=== PATIENT | male | born 1965 | race Caucasian/White ===

== ENCOUNTER 2019-09-26 10:26 | Emergency (ER) | payer MEDICAID, SELFPAY | END 2019-09-26 13:38 | disposition home or self-care (01) | PROVIDERS: Emergency Provider Physician Assistant; Visit Provider Physician Assistant | DX: S01.81XA Laceration without foreign body of other part of head, initial encounter (principal); F10.10 Alcohol abuse, uncomplicated; W01.0XXA Fall on same level from slipping, tripping and stumbling without subsequent striking against object, initial encounter; Y92.009 Unspecified place in unspecified non-institutional (private) residence as the place of occurrence of the external cause; I10 Essential (primary) hypertension; I48.91 Unspecified atrial fibrillation; I73.9 Peripheral vascular disease, unspecified; Z87.891 Personal history of nicotine dependence | CPT/HCPCS: 12013; 70450; 70486; 72125; 96372; 99284; J2001 ==

== ENCOUNTER 2019-10-28 19:07 | Emergency (ER) | payer MEDICAID, SELFPAY ==
--- NOTE | 2019-10-28 19:24 | PC.NURSE ---
EKG done 1922 and shown to ER doctor
[2019-10-28 19:28] VITALS: BP 130/86; PULSE 120; RESP 18; TEMP 36.7; O2SAT 97; BMI 23.7
--- NOTE | 2019-10-28 19:39 | ECG_ITS ---
Measurements Intervals [place] Rate: 120 P: 72 PA: 235 QRS: 4 QRSD: 102 T: 50 QT: 334 QTc: 474 SINUS TACHYCARDIA WITH FIRST DEGREE AV BLOCK Compared to ECG 05/28/2019 00:46:14 First degree AV block now present Atrial fibrillation no longer present T-wave abnormality no longer present Electronically Signed On 10-29-2019 16:21:18 [employer]STATE LOAN OFFICER by Derik Morgan M.D. [id number]
--- NOTE | 2019-10-28 19:39 | CTR_ITS ---
PROCEDURE INFORMATION: Exam: CT Head Without Contrast Exam date and time: 10/28/2019 7:54 PM Age: 54 years old Clinical indication: Patient HX: Seizure 1 hour ago TECHNIQUE: Imaging protocol: Computed tomography of the head without contrast. Total DLP: 839.03 mGy-cm Radiation optimization: All CT scans at this facility use at least one of these dose optimization techniques: automated exposure control; mA and/or kV adjustment per patient size (includes targeted exams where dose is matched to clinical indication); or iterative reconstruction. 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 Mild atrophy and mild white matter chronic microvascular changes are noted. No hemorrhage or CT evidence of acute infarction is seen. Ventricles: Normal. No ventriculomegaly. Bones/joints: Unremarkable. No acute fracture. Sinuses: Visualized sinuses are unremarkable. No fluid levels. Mastoid air cells: Visualized mastoid air cells are well aerated. Soft tissues: Unremarkable. CT/CT head wo con* [id number] IMPRESSION: No acute intracranial abnormality Radiation Dose CTDIVOL = (mGy): DLP = 839.03 (mGy-cm)
--- NOTE | 2019-10-28 19:42 | W.ED.GENADLT ---
HPI - General Adult General: Chief complaint: Alcohol Stated complaint: DETOX FROM ALCOHOL Time Seen by Provider: 10/28/19 19:37 History of Present Illness: HPI narrative: 54-year-old male patient comes in today for tremors and possible seizure activity. Patient stopped drinking 2 days ago. Patient has a history of chronic alcoholism. Patient reports no previous episodes of seizure. Patient is alert at this time speaking when questioned patient does have some tremors noted. Review of Systems General: Reports: 10 or more systems reviewed and unremarkable except in HPI and below Neuro: Reports: seizure-like activity Psych: Reports: other (alcohol withdrawal) PFSH ED PFSH: Statuses (acute, chronic, etc) shown below reflect problem list status as previously entered and may not be historically accurate Social History Smoking and tobacco status: former smoker Physical Exam Const: COMMON NORMALS: no apparent distress, oriented x3 and alert GENERAL APPEARANCE: cooperative ORIENTATION/CONSCIOUSNESS: Yes oriented to person and Yes oriented to place HENMT: COMMON NORMALS: normocephalic, external ears normal, EAC's normal, TM's normal bilaterally and external nose normal HEAD & SCALP: normal to inspection and normocephalic FACE & SINUS: normal facial exam NOSE: external nose normal GENERAL EAR: hearing not grossly impaired EXTERNAL EAR: Yes external ears normal EXTERNAL AUDITORY CANAL: EAC's normal TYMPANIC MEMBRANE: TM's normal bilaterally MOUTH: oral and palatal mucosa normal THROAT: posterior oropharynx normal Eye: COMMON NORMALS: PERRL and EOMs intact bilaterally PUPIL: Yes PERRL Neck/C-Spine: COMMON NORMALS: full ROM, no lymphadenopathy and no meningeal signs Lymph: LYMPHATIC: no lymphedema noted Chest: COMMONS NORMALS: inspection of chest normal and palpation of chest normal Resp: COMMON NORMALS: normal respiratory effort and clear to auscultation bilaterally AUSCULTATION: clear to auscultation bilaterally Cardio: COMMON NORMALS: regular rate and regular rhythm RATE: regular rate RHYTHM: regular rhythm GI: COMMON NORMALS: normal to inspection, nondistended, normoactive bowel sounds and non-tender : COMMON NORMALS: Yes no CVA tenderness BLADDER/KIDNEY EXAM: Yes no CVA tenderness Back/Pelvis: COMMON NORMALS: no CVA tenderness and thoracic and lumbar spine normal to inspection Extremity: COMMON NORMALS: normal to inspection GENERAL: No edema Neuro: COMMON NORMALS: oriented x3, moves all extremities and no focal motor deficits SENSORIUM/ORIENTATION: Yes alert, Yes oriented to person and Yes oriented to place MENINGEAL SIGNS: Yes no meningeal signs CRANIAL NERVES: Yes CN normal except as noted COORDINATION/BALANCE: [id number] test normal SPEECH: speech normal MOTOR EXAM: strength 5/5 throughout and tremor resting tremor COORDINATION: [id number] test normal Psych: COMMON NORMALS: mental status grossly normal and cooperative Skin: COMMON NORMALS: no rashes or lesions noted GENERAL SKIN EXAM: no rashes or lesions noted Course Vital Signs: Vital signs: Vital Signs Temperature 98.1 F 10/28/19 19:28 Pulse Rate 120 H 10/28/19 19:28 Respiratory Rate 18 10/28/19 19:28 Blood Pressure 130/86 10/28/19 19:28 Pulse Oximetry 97 10/28/19 19:28 MDM - General Adult MDM Narrative: Medical decision making narrative: Patient was brought in by son per EMS for concerns of seizure-like activity. Patient had a short episode where he had his eyes rolled back in his head and was twitching on the floor some reports. Patient was not incontinent of urine. Patient has recently stopped drinking over the last 2 days. Exam notes no focal neural deficits patient is alert and oriented. Patient does have a tremor at rest. Patient does report withdrawal symptoms of alcohol. Differential diagnosis includes DTs, alcohol withdrawal seizure, CVA, ACS. Laboratory values came back appropriate for 0 percentile for alcohol, blood count was normal. Sodium was 133. Liver enzymes are slightly elevated. Reviewed exam with patient, patient was hydrated with IV fluids and given 100 mg of thiamine and 2 mg of Ativan. No seizure activity was noted 4 to 4 hours patient was monitored in the ER. Patient will be continued on Ativan p.o. at discharge with recommendations to follow-up in 3 days with primary care. Patient sees a primary care provider at [facility] and will continue his treatment with them, patient has good support with son. Lab Data: Labs: Lab Results 10/28/19 10/28/19 Range/Units 19:44 19:44 WBC 7.7 (4.0-10.0) 10^3/ uL RBC 4.52 (4.1-5.3) 10^6/u L Hgb 14.9 (11.7-16.6) g/dL Hct 42.9 (42.0-52.0) % MCV 94.9 H (80-94) fL MCH 33.0 (28.0-34.0) pg MCHC 34.7 (30.0-36.0) g/dL RDW 12.0 L (12.1-15.1) % Plt Count 148 (130-400) 10^3/c mm MPV 11.0 H (7.4-10.4) fL Neut % (Auto) 87.3 % Lymph % (Auto) 7.0 % [place] % (Auto) 4.9 % Eos % (Auto) 0.1 % Baso % (Auto) 0.4 % Neut # (Auto) 6.7 (1.8-7.7) 10^3/u L Lymph # (Auto) 0.5 L (0.8-4.8) 10^3/u L [place] # (Auto) 0.4 (0.2-0.9) 10^3/u L Eos # (Auto) 0.0 (0.0-0.8) 10^3/u L Baso # (Auto) 0.0 (0.0-0.1) 10^3/u L Nucleated RBC % (a uto) 0 % Nucleated RBCs # 0.0 /100WBC Sodium 133 L (136-145) mmol/L Potassium 3.9 (3.5-5.1) mmol/L Chloride 93 L (98-107) mmol/L Carbon Dioxide 17 L (22-29) mmol/L Anion Gap 26.9 H (5-19) BUN 12 (6-20) mg/dL Creatinine 0.8 (0.7-1.2) mg/dL GFR Calculation 100.0 (90-130) mL/min Glucose 153 H (74-109) mg/dL Calcium 9.5 (8.5-10.5) mg/dL Total Bilirubin 2.0 H (0.15-1.2) mg/dL AST 109 H (0-40) U/L ALT 81 H (0-41) U/L Alkaline Phosphata se 97 (40-130) IU/L Total Protein 7.6 (6.6-8.7) g/dL Albumin 4.2 (3.5-5.2) g/dL Globulin 3.4 (1.3-4.6) g/dL Ethyl Alcohol < 10 (0-10) mg/dL Discharge Plan Discharge Patient Disposition: Home, Self-Care Clinical Impression: Alcohol withdrawal seizure Qualifiers: Complication of substance-induced condition: uncomplicated Qualified Code(s): F10.230 - Alcohol dependence with withdrawal, uncomplicated Condition: Stable Prescriptions: New lorazepam 1 mg tablet 1 mg PO Q8H PRN (Reason: alcohol withdrawal) Qty: 15 RF: 0 Discharge Orders: Discharge Order (Routine); Ordered 10/28/19 Ordered By: Nicola Montoya Discharge Diet: Usual diet Discharge Activity: Increase activity as tolerated Patient Instructions: Alcohol Withdrawal (ED) Activity Restrictions/Additional Instructions: Use medication routinely for the next 2 to 3 days, then try to go to a prn basis, Follow-up with primary care on Thursday for recheck. Return to ER for worsening symptoms or new concerns Coding Level of Care Code ED [employer] Operator for Angelica Pollard Exam Problem Focused
[2019-10-28 19:54] LABS: Basophils % 0.4 %; Eosinophils % 0.1 %; Hematocrit 42.9 % (42.0-52.0); Hemoglobin 14.9 g/dL (11.7-16.6); Lymphocytes # 0.5 10^3/uL (0.8-4.8); Mean Corpuscular HGB Conc 34.7 g/dL (30.0-36.0); Mean Corpuscular Volume 94.9 fL (80-94); Monocytes # 0.4 10^3/uL (0.2-0.9); Monocytes % 4.9 %; Neutrophils # 6.7 10^3/uL (1.8-7.7); Neutrophils % 87.3 %; Nucleated Red Blood Cells % 0 %; Platelet Count 148 10^3/cmm (130-400); Red Blood Count 4.52 10^6/uL (4.1-5.3); White Blood Count 7.7 10^3/uL (4.0-10.0)
[2019-10-28] MEDS: LORazepam 2 mg/mL INJ 1 mL IVP (19:55)
[2019-10-28] MEDS: sodium chloride 0.9% 1,000 ML 999 ML IV (19:57)
[2019-10-28 20:09] LABS: Alanine Aminotransferase 81 U/L (0-41); Albumin Level 4.2 g/dL (3.5-5.2); Alkaline Phosphatase 97 IU/L (40-130); Anion Gap 26.9 (5-19); Aspartate Amino Transferase 109 U/L (0-40); Blood Urea Nitrogen 12 mg/dL (6-20); Calcium 9.5 mg/dL (8.5-10.5); Carbon Dioxide 17 mmol/L (22-29); Chloride 93 mmol/L (98-107); Globulin 3.4 g/dL (1.3-4.6); Glucose 153 mg/dL (74-109); Potassium 3.9 mmol/L (3.5-5.1); Sodium 133 mmol/L (136-145); Total Protein 7.6 g/dL (6.6-8.7)
[2019-10-28 20:12] LABS: Alcohol Level < 10 mg/dL (0-10)
[2019-10-28 21:49] VITALS: BP 134/74; PULSE 68; RESP 18; O2SAT 98
== END 2019-10-28 21:52 | disposition home or self-care (01) ==
PROVIDERS: Emergency Provider Nurse Practitioner Family
DX: F10.239 Alcohol dependence with withdrawal, unspecified (principal); G40.89 Other seizures; Z87.891 Personal history of nicotine dependence
CPT/HCPCS: 70450; 80053; 80307; 85025; 93005; 96360; 96374; 96375; 99284; 99285; A9270; J2060; J3411; J7030

== ENCOUNTER 2020-07-24 22:38 | Emergency (ER) | payer MEDICAID, SELFPAY ==
[2020-07-24 22:41] VITALS: BP 121/96; PULSE 116; RESP 16; TEMP 36.9; O2SAT 92; BMI 20.5
--- NOTE | 2020-07-24 22:57 | ECG_ITS ---
[facility] Test Date: 2020-07-25 Pat Name: Derrek Crowe Department: Room: Gender: Male [employer]: : 1965 Requested By: Anais Servin Order Number: [id number] Reading MD: Measurements Intervals [place] Rate: 100 P: SD: -1 QRS: -3 QRSD: 112 T: 31 QT: 384 QTc: 496 Interpretive Statements ATRIAL FIBRILLATION WITH RAPID VENTRICULAR RESPONSE MODERATE INTRAVENTRICULAR CONDUCTION DELAY [110+ ms QRS DURATION] NONSPECIFIC T-WAVE ABNORMALITY ABNORMAL RHYTHM ECG Compared to ECG 10/28/2019 19:23:48 Intraventricular conduction delay now present T-wave abnormality now present Sinus tachycardia no longer present First degree AV block no longer present [id number]
--- NOTE | 2020-07-24 22:57 | CTR_ITS ---
PROCEDURE INFORMATION: Exam: CT Head Without Contrast Exam date and time: 07/24/2020 11:23 PM Age: 55 years old Clinical indication: Injury or trauma; Fall; Blunt trauma (contusions or hematomas) TECHNIQUE: Imaging protocol: Computed tomography of the head without contrast. Radiation optimization: All CT scans at this facility use at least one of these dose optimization techniques: automated exposure control; mA and/or kV adjustment per patient size (includes targeted exams where dose is matched to clinical indication); or iterative reconstruction. COMPARISON: CT head wo con* [id number] 10/28/2019 8:17 PM RADIATION DOSE METRICS: Total DLP (mGy-cm): 847.56 FINDINGS: Brain: There is moderate cortical atrophy. Low-density changes in the white matter are consistent with nonspecific small vessel chronic ischemic change. There is no intracranial mass, hemorrhage or edema. 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 Cerebral ventricles: No ventriculomegaly. Bones/joints: Unremarkable. No acute fracture. Paranasal sinuses: Visualized sinuses are unremarkable. No fluid levels. Mastoid air cells: Visualized mastoid air cells are well aerated. Soft tissues: Unremarkable. CT/CT head wo con* [id number] IMPRESSION: 1. Atrophy and old lacunar disease 2. No acute intracranial finding. Radiation Dose CTDIVOL = (mGy): DLP = 847.56 (mGy-cm)
--- NOTE | 2020-07-24 22:57 | CTR_ITS ---
PROCEDURE INFORMATION: Exam: CT Cervical Spine Without Contrast Exam date and time: 07/24/2020 11:23 PM Age: 55 years old Clinical indication: Injury or trauma; Fall; Blunt trauma; Additional info: Pain TECHNIQUE: Imaging protocol: Computed tomography images of the cervical spine without contrast. Radiation optimization: All CT scans at this facility use at least one of these dose optimization techniques: automated exposure control; mA and/or kV adjustment per patient size (includes targeted exams where dose is matched to clinical indication); or iterative reconstruction. COMPARISON: CT Cervical Spine wo* [id number] 09/26/2019 11:28 AM RADIATION DOSE METRICS: Total DLP (mGy-cm): 841.71 FINDINGS: Bones/joints: No fracture is identified. Discs/Spinal canal/Neural foramina: There is moderate degenerative change in the cervical spine with narrowing of the C3-C4 disc space and the C5-C6 disc space with small anterior and posterior osteophytes. Soft tissues: Unremarkable. Lungs: Lung apices are normal. Other findings: Findings are not significantly changed from 09/26/2019. CT/CT cervical spin wo con* [id number] IMPRESSION: Degenerative changes. No fracture is identified. Radiation Dose CTDIVOL = (mGy): DLP = 841.71 (mGy-cm)
--- NOTE | 2020-07-24 22:57 | XR_ITS ---
WS: [id number] PELVIS: AP VIEW SUBMITTED HISTORY: Fall COMPARISON: None available. Bones and soft tissues of the pelvis are intact. No fracture or dislocation. Mild narrowing of the hip joints and mild osteophytic ridging around the acetabulum. No bone destruct ion. No soft tissue abnormality. XR/XR pelvis 1-2V* [id number] IMPRESSION: Mild bilateral hip joint arthritis.
--- NOTE | 2020-07-24 22:57 | XR_ITS ---
WS: [id number] PORTABLE CHEST HISTORY: Fall COMPARISON: 05/28/2019 Hyperexpanded lungs from emphysema. Stable granuloma over the mid to lower RIGHT lower lung is stable . No pneumonia. No pleural effusion or pneumothorax. Cardiac size: Moderately enlarged cardiac silhouette. Mediastinum/Aorta: Normal mediastinum. No osseous abnormality seen. XR/XR chest 1V portable [id number] IMPRESSION: 1. Stable chest. No acute pneumonia. 2. Moderate cardiomegaly.
--- NOTE | 2020-07-24 23:00 | ED_ITS ---
Documented by User: Anais Leblanc 07/25/20 06:08 HPI - Back Pain/Injury General: Chief Complaint: Back Pain/Injury Stated Complaint: BACK PAIN/ETOH Time Seen by Provider: 07/24/20 22:43 Source: patient and EMS Mode of arrival: EMS Limitations: no limitations History of Present Illness: HPI Narrative: Mr. Crowe is a nice 55-year-old male who comes in after he apparently fell at home. Patient does not remember falling and denies any new pain. 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 He denies any loss of bowel or bladder control, saddle anesthesia, radiation his legs or other pain. Patient does not believe he got knocked out but he does admit to being drunk and is uncertain how he got here. Patient drinks this is 1/5 of whiskey every other day. He denies any complaints at this time. Associated symptoms: Deny abdominal pain, chills, difficulty walking, dysuria, fatigue, fever(s), hematuria, nausea, syncope, urinary urgency or vomiting Review of Systems Const: Denies: fever(s), chills, body aches, fatigue, malaise or diaphoresis Eyes: Denies: change in vision, blurry vision, photophobia, eye discomfort, eye discharge, eye redness or yellow eyes ENMT: Denies: throat pain, odynophagia, hoarseness, swelling of lips/tongue, ear or mastoid pain, ear discharge, change in hearing or nasal discharge Card: Denies: chest pain, palpitations, irregular heart rhythm, edema, lightheadedness, syncope, pre-syncope, dyspnea on exertion or orthopnea Resp: Denies: dyspnea, productive cough, non-productive cough, wheezing, hemoptysis or chest congestion GI: Denies: abdominal pain, nausea, vomiting, hematemesis, coffee ground emesis, heartburn, diarrhea, constipation, GI cramping, hematochezia or melena : Denies: flank pain, dysuria, urinary frequency, urinary urgency or hematuria Musc: Reports: back pain; Denies: neck pain, extremity pain, extremity swelling, joint pain, joint swelling, joint redness, joint warmth or joint stiffness Skin/Breast: Denies: rash, pruritus, erythema, skin pain or skin tenderness Neuro: Denies: headache(s), numbness in extremities, weakness in extremities, sensory changes, lack of coordination, difficulty walking, dizziness, vertigo, confusion, Slurred speech present or seizure-like activity Tano/Lymph: Denies: easy bruising, easy bleeding, petechiae, purpura or enlarged lymph nodes All/Imm: Denies: urticaria, throat swelling, tongue swelling, facial swelling or acute wheezing PFSH ED PFSH: Medical History (Updated 07/25/20 @ 11:13 by Erick Rhoades DO) Anxiety Atrial fibrillation Congestive heart failure GERD (gastroesophageal reflux disease) Hypertension Family History Father Cancer Social History Smoking and tobacco status: former smoker Physical Exam Const: COMMON NORMALS: no acute distress, patient oriented x3, no limitations and alert GENERAL APPEARANCE: cooperative HENMT: COMMON NORMALS: normocephalic, atraumatic, external ears normal, EAC's normal and Normal external nose present HEAD & SCALP: normal to inspection, normocephalic and atraumatic FACE & SINUS: normal facial exam and face symmet kareen NOSE: Normal external nose present and Normal nares present EXTERNAL EAR: Yes external ears normal EXTERNAL AUDITORY CANAL: EAC's normal MOUTH: Normal oral and palatal mucosa present, lip normal and tongue normal Eye: COMMON NORMALS: Equal, round and reactive pupils present and conjunctivae normal GENERAL EYE: appearance normal, both eyes and all related structures ALIGNMENT: Yes alignment normal PERIORBITAL: periorbital findings normal EYELID: eyelids normal CONJUNCTIVA: Yes conjunctivae normal SCLERA: sclerae normal PUPIL: Yes Equal, round and reactive pupils present Neck/C-Spine: COMMON NORMALS: full ROM, no lymphadenopathy, supple, no meningeal signs and no JVD GENERAL: Yes normal visual inspection and Yes trachea midline Chest: COMMONS NORMALS: normal inspection of the chest and normal palpation of entire chest wall Resp: COMMON NORMALS: normal respiratory effort, No retractions, No use of accessory muscles and clear to auscultation bilaterally EFFORT & INSPECTION: Yes able to speak in complete sentences and Yes symmetric chest movement AUSCULTATION: clear to auscultation bilaterally, no crackles, no rales, no rhonchi and no wheezes Cardio: COMMON NORMALS: no JVD, regular rate, regular rhythm, S1 normal heart sound present and S2 normal heart sound present RATE: regular rate RHYTHM: regular rhythm HEART SOUNDS: S1 normal heart sound present, S2 normal heart sound present, no click, no gallops, no murmurs and no rubs GI: COMMON NORMALS: Soft to palpation and No hepatosplenomegaly present PALPATION: Yes Soft to palpation, No Tenderness to palpation present (GI), No Guarding due to palpation present (GI), No Rigid due to palpation, Yes No hepat osplenomegaly present, No Hernia present, No Palpable mass present and No Pulsatile mass present : COMMON NORMALS: Yes no CVA tenderness BLADDER/KIDNEY EXAM: Yes no CVA tenderness Back/Pelvis: COMMON NORMALS: no CVA tenderness, thoracic and lumbar spine normal to inspection, no thoracic nor lumbar tenderness and thoraco-lumbar ROM normal Extremity: COMMON NORMALS: normal to inspection, full ROM, capillary refill normal, no joint enlargement, no clubbing, cyanosis or edema and no calf tenderness Neuro: COMMON NORMALS: patient oriented x3, CN's II-XII intact bilaterally, moves all extremities, no focal motor deficits and no sensory deficits noted SENSORIUM/ORIENTATION: Yes alert MENINGEAL SIGNS: Yes no meningeal signs SPEECH: speech normal Psych: COMMON NORMALS: mental status grossly normal, Normal thought process present, cooperative, normal affect, speech normal and activity/motor behavior normal SPEECH: Yes normal speech THOUGHT PROCESS: Normal thought process present Skin: COMMON NORMALS: no rashes or lesions noted, turgor normal, no jaundice, no petechiae and no mottling GENERAL SKIN EXAM: no rashes or lesions noted and turgor normal Course ED course: 0056 -patient able to ambulate without difficulty. Wants to go home. Will begin to have him start calling for a ride home. 0433 -patient is resting comfortably with stable vital signs. He was awoken has a GCS of 15. He denies any complaints or concerns. We are still unable to reach anyone to come to take him home. 0530 -patient is up and able to ambulate again without any sign of ataxia or disturbance. Pain in his head, neck, chest, back, abdomen or extremities. Vital signs are stable. We will continue to try to find someone who can come pick him up and take him home. Vital Signs: Vital signs: Vital Signs Temperature 98.4 F 07/24/20 22:41 Pulse Rate 110 H 07/25/20 11:54 Respiratory Rate 18 07/25/20 10:00 Blood Pressure 132/101 07/25/20 11:54 Pulse Oximetry 93 07/25/20 11:54 MDM - Back Pain/Injury MDM Narrative: Medical decision making narrative: 06 -Mr. Crowe is 55-year-old male who comes in with report of fall at home. Patient does not remember the fall. He denies any complaints. Upon looking through the chart the patient does have history of atrial fibrillation he is uncertain if he is on anticoagulation any longer. The last thing I can see is that he was on Eliquis. I will go ahead and check some coags given the patient's been up and amatory twice. He denies any other pain at this time. Patient cannot locate her right still at this time. Lab Data: Attestation: I reviewed the patient's lab results. Labs: Lab Results 07/24/20 07/24/20 07/25/20 Range/Units 23:08 23:08 01:26 WBC 7.7 (4.0-10.0) 10^3/ uL RBC 4.43 (4.1-5.3) 10^6/u L Hgb 14.8 (11.7-16.6) g/dL Hct 45.5 (42.0-52.0) % MCV 102.7 H (80-94) fL MCH 33.4 (28.0-34.0) pg MCHC 32.5 (30.0-36.0) g/dL RDW 13.7 (12.1-15.1) % Plt Count 229 (130-400) 10^3/c mm MPV 10.6 H (7.4-10.4) fL Neut % (Auto) 46.2 % Lymph % (Auto) 44.0 % Tompkins % (Auto) 6.7 % Eos % (Auto) 1.9 % Baso % (Auto) 0.9 % Neut # (Auto) 3.56 (1.8-7.7) 10^3/u L Lymph # (Auto) 3.4 (0.8-4.8) 10^3/u L Tompkins # (Auto) 0.5 (0.2-0.9) 10^3/u L Eos # (Auto) 0.2 (0.0-0.8) 10^3/u L Baso # (Auto) 0.1 (0.0-0.1) 10^3/u L Nucleated RBC % (a uto) 0 % Nucleated RBCs # 0.0 /100WBC Sodium 144 (136-145) mmol/L Potassium 3.9 (3.5-5.1) mmol/L Chloride 107 (98-107) mmol/L Carbon Dioxide 27 (22-29) mmol/L Anion Gap 13.9 (5-19) BUN 14 (6-20) mg/dL Creatinine 0.8 (0.7-1.2) mg/dL GFR Calculation 99.6 (90-130) mL/min Glucose 92 (65-115) mg/dL Calculated Osmolal ity 298 H (285-295) mOsm/k g Calcium 9.2 (8.5-10.5) mg/dL Magnesium 2.2 (1.7-2.3) mg/dL Total Bilirubin 0.7 (0.15-1.2) mg/dL AST 62 H (0-40) U/L ALT 42 H (0-41) U/L Alkaline Phosphata se 83 (40-130) IU/L Total Protein 7.4 (6.6-8.7) g/dL Albumin 4.3 (3.5-5.2) g/dL Globulin 3.1 (1.3-4.6) g/dL Ethyl Alcohol 342 H* (0-10) mg/dL 07/25/20 Range/Units 05:50 WBC (4.0-10.0) 10^3/ uL RBC (4.1-5.3) 10^6/u L Hgb (11.7-16.6) g/dL Hct (42.0-52.0) % MCV (80-94) fL MCH (28.0-34.0) pg MCHC (30.0-36.0) g/dL RDW (12.1-15.1) % Plt Count (130-400) 10^3/c mm MPV (7.4-10.4) fL Neut % (Auto) % Lymph % (Auto) % Tompkins % (Auto) % Eos % (Auto) % Baso % (Auto) % Neut # (Auto) (1.8-7.7) 10^3/u L Lymph # (Auto) (0.8-4.8) 10^3/u L Tompkins # (Auto) (0.2-0.9) 10^3/u L Eos # (Auto) (0.0-0.8) 10^3/u L Baso # (Auto) (0.0-0.1) 10^3/u L Nucleated RBC % (a uto) % Nucleated RBCs # /100WBC Sodium (136-145) mmol/L Potassium (3.5-5.1) mmol/L Chloride (98-107) mmol/L Carbon Dioxide (22-29) mmol/L Anion Gap (5-19) BUN (6-20) mg/dL Creatinine (0.7-1.2) mg/dL GFR Calculation (90-130) mL/min Glucose (65-115) mg/dL Calculated Osmolal ity (285-295) mOsm/k g Calcium (8.5-10.5) mg/dL Magnesium (1.7-2.3) mg/dL Total Bilirubin (0.15-1.2) mg/dL AST (0-40) U/L ALT (0-41) U/L Alkaline Phosphata se (40-130) IU/L Total Protein (6.6-8.7) g/dL Albumin (3.5-5.2) g/dL Globulin (1.3-4.6) g/dL Ethyl Alcohol 222 H (0-10) mg/dL Imaging Data^: CXR: Attestation: I personally reviewed and interpreted this imaging study as follows: My impression: No acute cardiopulmonary findings. Pelvis: Attestation: I personally reviewed and interpreted this imaging study as follows: My impression: No acute cardiopulmonary findings. CT Head: Radiologist's impression: [address] [address] [address] Scan Report Signed Patient: Derrek Crowe Unit #: [id number] : 1965 Age/Sex: 55 / M ADM Date: 07/24/20 Loc: ER Room/Bed: Attending Dr: Ordering Provider/Ordering MD: Anais Leblanc DO Date of Service: 07/24/20 Procedure(s): CT head wo con* [id number] Accession Number(s): [id number] Report Number: [id number] PROCEDURE INFORMATION: Exam: CT Head Without Contrast Exam date and time: 07/24/2020 11:23 PM Age: 55 years old Clinical indication: Injury or trauma; Fall; Blunt trauma (contusions or hematomas) TECHNIQUE: Imaging protocol: Computed tomography of the head without contrast. Radiation optimization: All CT scans at this facility use at least one of these dose optimization techniques: automated exposure control; mA and/or kV adjustment per patient size (includes targeted exams where dose is matched to clinical indication); or iterative reconstruction. COMPARISON: CT head wo con* [id number] 10/28/2019 8:17 PM RADIATION DOSE METRICS: Total DLP (mGy-cm): 847.56 FINDINGS: Brain: There is moderate cortical atrophy. Low-density changes in the white matter are consistent with nonspecific small vessel chronic ischemic change. There is no intracranial mass, hemorrhage or edema. 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 Cerebral ventricles: No ventriculomegaly. Bones/joints: Unremarkable. No acute fracture. Paranasal sinuses: Visualized sinuses are unremarkable. No fluid levels. Mastoid air cells: Visualized mastoid air cells are well aerated. Soft tissues: Unremarkable. CT/CT head wo con* [id number] IMPRESSION: 1. Atrophy and old lacunar disease 2. No acute intracranial finding. Radiation Dose CTDIVOL = (mGy): DLP = 847.56 (mGy-cm) Dictated By: Gil Garvey Signed By: Gil Garvey Signed Date/Time: 07/25/20 0002 DD/ 0001 CT Cervical Spine: Radiologist's impression: [address] [address] [address] Scan Report Signed Patient: Derrek Crowe Unit #: [id number] : 1965 Age/Sex: 55 / M ADM Date: 07/24/20 Loc: ER Room/Bed: Attending Dr: Ordering Provider/Ordering MD: Anais Leblanc DO Date of Service: 07/24/20 Procedure(s): CT cervical spin wo con* [id number] Accession Number(s): [id number] Report Number: [id number] PROCEDURE INFORMATION: Exam: CT Cervical Spine Without Contrast Exam date and time: 07/24/2020 11:23 PM Age: 55 years old Clinical indication: Injury or trauma; Fall; Blunt trauma; Additional info: Pain TECHNIQUE: Imaging protocol: Computed tomography images of the cervical spine without contrast. Radiation optimization: All CT scans at this facility use at least one of these dose optimization techniques: automated exposure control; mA and/or kV adjustment per patient size (includes targeted exams where dose is matched to clinical indication); or iterative reconstruction. COMPARISON: CT Cervical Spine wo* [id number] 09/26/2019 11:28 AM RADIATION DOSE METRICS: Total DLP (mGy-cm): 841.71 FINDINGS: Bones/joints: No fracture is identified. Discs/Spinal canal/Neural foramina: There is moderate degenerative change in the cervical spine with narrowing of the C3-C4 disc space and the C5-C6 disc space with small anterior and posterior osteophytes. Soft tissues: Unremarkable. Lungs: Lung apices are normal. Other findings: Findings are not significantly changed from 09/26/2019. CT/CT cervical spin wo con* [id number] IMPRESSION: Degenerative changes. No fracture is identified. Radiation Dose CTDIVOL = (mGy): DLP = 841.71 (mGy-cm) Dictated By: Gil Garvey Signed By: Gil Garvey Signed Date/Time: 07/25/209 DD/ 0008 EKG Data^: EKG 1: Attestation: I personally reviewed and interpreted this EKG as follows: EKG interpretation date: 07/25/20 EKG interpretation time: 12:15 Interpretation: A-Fib/Flutter at 100 beats a minute, frequent PE bases, no acute ST or T wave changes. EKG 2: Attestation: I personally reviewed and interpreted this EKG as follows: EKG interpretation date: 07/25/20 EKG interpretation time: 05:51 Interpretation: A. fib at 107, nonspecific ST-T wave changes. Discharge Plan Discharge Patient Disposition: Home Clinical Impression: Alcohol intoxication, Atrial fibrillation, Apnea, sleep, Fall Condition: Stable Prescriptions: No Action lorazepam 1 mg tablet 1 mg PO Q8H PRN (Reason: alcohol withdrawal) Qty: 15 RF: 0 Discharge Orders: Discharge Order (Routine); Ordered 07/25/20 Ordered By: Erick Rhoades Discharge Diet: Usual diet Discharge Activity: Increase activity as tolerated Activity Restrictions/Additional Instructions: Recommend alcohol abstinence. Follow-up with your primary care doctor as needed. Recommend that you also seek out assistance with alcohol abstinence such as at [facility]. Discharge Date/Time: 07/25/20 12:00 Sign Out Sign Out Data: Patient Sign Out occurred on 07/25/20 at 06:40. Patient's care was discussed, and care was transferred from to Erick Rhoades DO. Coding Level of Care Code ED Dairy Quality Assurance Officer for Chg Fwd Exam Comprehensive Documented by User: Erick Rhoades DO 07/26/20 08:00 HPI - Back Pain/Injury General: Chief Complaint: Back Pain/Injury Stated Complaint: BACK PAIN/ETOH Time Seen by Provider: 07/24/20 22:43 [facility] ED PFSH: Medical History (Updated 07/25/20 @ 11:13 by Erick Rhoades DO) Anxiety Atrial fibrillation Congestive heart failure GERD (gastroesophageal reflux disease) Hypertension Family History Father Cancer Social History Smoking and tobacco status: former smoker Course Vital Signs: Vital signs: Vital Signs Temperature 98.4 F 07/24/20 22:41 Pulse Rate 110 H 07/25/20 11:54 Respiratory Rate 18 07/25/20 10:00 Blood Pressure 132/101 07/25/20 11:54 Pulse Oximetry 93 07/25/20 11:54 MDM - Back Pain/Injury MDM Narrative: Medical decision making narrative: Patient is now awake and alert. Care assumed from Dr. Nolan at change of shift. I do note his sats are low when he sleeping in the bed he did come in extremely intoxicated. But when he is up and ambulatory his sats are normal. We did do an home O2 eval which was normal. Patient is feeling well we will go ahead and discharge him home encouraged alcohol abstinence Lab Data: Labs: Lab Results 07/24/20 07/24/20 07/25/20 Range/Units 23:08 23:08 01:26 WBC 7.7 (4.0-10.0) 10^3/ uL RBC 4.43 (4.1-5.3) 10^6/u L Hgb 14.8 (11.7-16.6) g/dL Hct 45.5 (42.0-52.0) % MCV 102.7 H (80-94) fL MCH 33.4 (28.0-34.0) pg MCHC 32.5 (30.0-36.0) g/dL RDW 13.7 (12.1-15.1) % Plt Count 229 (130-400) 10^3/c mm MPV 10.6 H (7.4-10.4) fL Neut % (Auto) 46.2 % Lymph % (Auto) 44.0 % Tompkins % (Auto) 6.7 % Eos % (Auto) 1.9 % Baso % (Auto) 0.9 % Neut # (Auto) 3.56 (1.8-7.7) 10^3/u L Lymph # (Auto) 3.4 (0.8-4.8) 10^3/u L Tompkins # (Auto) 0.5 (0.2-0.9) 10^3/u L Eos # (Auto) 0.2 (0.0-0.8) 10^3/u L Baso # (Auto) 0.1 (0.0-0.1) 10^3/u L Nucleated RBC % (a uto) 0 % Nucleated RBCs # 0.0 /100WBC Sodium 144 (136-145) mmol/L Potassium 3.9 (3.5-5.1) mmol/L Chloride 107 (98-107) mmol/L Carbon Dioxide 27 (22-29) mmol/L Anion Gap 13.9 (5-19) BUN 14 (6-20) mg/dL Creatinine 0.8 (0.7-1.2) mg/dL GFR Calculation 99.6 (90-130) mL/min Glucose 92 (65-115) mg/dL Calculated Osmolal ity 298 H (285-295) mOsm/k g Calcium 9.2 (8.5-10.5) mg/dL Magnesium 2.2 (1.7-2.3) mg/dL Total Bilirubin 0.7 (0.15-1.2) mg/dL AST 62 H (0-40) U/L ALT 42 H (0-41) U/L Alkaline Phosphata se 83 (40-130) IU/L Total Protein 7.4 (6.6-8.7) g/dL Albumin 4.3 (3.5-5.2) g/dL Globulin 3.1 (1.3-4.6) g/dL Ethyl Alcohol 342 H* (0-10) mg/dL 07/25/20 Range/Units 05:50 WBC (4.0-10.0) 10^3/ uL RBC (4.1-5.3) 10^6/u L Hgb (11.7-16.6) g/dL Hct (42.0-52.0) % MCV (80-94) fL MCH (28.0-34.0) pg MCHC (30.0-36.0) g/dL RDW (12.1-15.1) % Plt Count (130-400) 10^3/c mm MPV (7.4-10.4) fL Neut % (Auto) % Lymph % (Auto) % Tompkins % (Auto) % Eos % (Auto) % Baso % (Auto) % Neut # (Auto) (1.8-7.7) 10^3/u L Lymph # (Auto) (0.8-4.8) 10^3/u L Tompkins # (Auto) (0.2-0.9) 10^3/u L Eos # (Auto) (0.0-0.8) 10^3/u L Baso # (Auto) (0.0-0.1) 10^3/u L Nucleated RBC % (a uto) % Nucleated RBCs # /100WBC Sodium (136-145) mmol/L Potassium (3.5-5.1) mmol/L Chloride (98-107) mmol/L Carbon Dioxide (22-29) mmol/L Anion Gap (5-19) BUN (6-20) mg/dL Creatinine (0.7-1.2) mg/dL GFR Calculation (90-130) mL/min Glucose (65-115) mg/dL Calculated Osmolal ity (285-295) mOsm/k g Calcium (8.5-10.5) mg/dL Magnesium (1.7-2.3) mg/dL Total Bilirubin (0.15-1.2) mg/dL AST (0-40) U/L ALT (0-41) U/L Alkaline Phosphata se (40-130) IU/L Total Protein (6.6-8.7) g/dL Albumin (3.5-5.2) g/dL Globulin (1.3-4.6) g/dL Ethyl Alcohol 222 H (0-10) mg/dL Discharge Plan Discharge Patient Disposition: Home Clinical Impression: Alcohol intoxication, Atrial fibrillation, Apnea, sleep, Fall Condition: Stable Prescriptions: No Action lorazepam 1 mg tablet 1 mg PO Q8H PRN (Reason: alcohol withdrawal) Qty: 15 RF: 0 Discharge Orders: Discharge Order (Routine); Ordered 07/25/20 Ordered By: Erick Rhoades Discharge Diet: Usual diet Discharge Activity: Increase activity as tolerated Activity Restrictions/Additional Instructions: Recommend alcohol abstinence. Follow-up with your primary care doctor as needed. Recommend that you also seek out assistance with alcohol abstinence such as at [facility]. Discharge Date/Time: 07/25/20 12:00 Sign Out Sign Out Data: Patient Sign Out occurred on 07/25/20 at 06:40. Patient's care was discussed, and care was transferred from to Erick Rhoades DO. Coding Level of Care Code ED Dairy Quality Assurance Officer for Rajinderg Fwd Exam Comprehensive
--- NOTE | 2020-07-24 23:00 | XR_ITS ---
WS: [id number] LUMBAR SPINE: 3 VIEWS TECHNIQUE: AP, lateral and L5-S1 spot. HISTORY: Pain COMPARISON: 05/15/2019 Mild LEFT convex rotoscoliosis of the lumbar spine. Disc space narrowing and endplate osteophytes thr oughout the lumbar spine. Anterior compression fracture is stable at T12 of 20%. Facet joint arthriti s most significant L4-5 and L5-S1. SI joints are symmetric bilaterally. No soft tissue abnormalities. XR/XR lumbar spine 2-3V* [id number] IMPRESSION: 1. Moderate thoracic spondylosis and LEFT convex rotary scoliosis. Similar to the prior study. 2. Stable T12 anterior compression fracture.
[2020-07-24 23:22] LABS: Basophils # 0.1 10^3/uL (0.0-0.1); Basophils % 0.9 %; Eosinophils # 0.2 10^3/uL (0.0-0.8); Eosinophils % 1.9 %; Hematocrit 45.5 % (42.0-52.0); Hemoglobin 14.8 g/dL (11.7-16.6); Lymphocytes # 3.4 10^3/uL (0.8-4.8); Mean Corpuscular HGB Conc 32.5 g/dL (30.0-36.0); Mean Corpuscular Hemoglobin 33.4 pg (28.0-34.0); Mean Corpuscular Volume 102.7 fL (80-94); Mean Platelet Volume 10.6 fL (7.4-10.4); Monocytes # 0.5 10^3/uL (0.2-0.9); Monocytes % 6.7 %; Neutrophils # 3.56 10^3/uL (1.8-7.7); Neutrophils % 46.2 %; Nucleated Red Blood Cells % 0 %; Platelet Count 229 10^3/cmm (130-400); Red Blood Count 4.43 10^6/uL (4.1-5.3); Red Cell Distribution Width 13.7 % (12.1-15.1); White Blood Count 7.7 10^3/uL (4.0-10.0)
[2020-07-24 23:41] LABS: Alanine Aminotransferase 42 U/L (0-41); Albumin Level 4.3 g/dL (3.5-5.2); Alkaline Phosphatase 83 IU/L (40-130); Anion Gap 13.9 (5-19); Aspartate Amino Transferase 62 U/L (0-40); Blood Urea Nitrogen 14 mg/dL (6-20); Calcium 9.2 mg/dL (8.5-10.5); Carbon Dioxide 27 mmol/L (22-29); Chloride 107 mmol/L (98-107); Globulin 3.1 g/dL (1.3-4.6); Glomerular Filtration Rate 99.6 mL/min (90-130); Glucose 92 mg/dL (65-115); Magnesium 2.2 mg/dL (1.7-2.3); Osmolality Calculated 298 mOsm/kg (285-295); Potassium 3.9 mmol/L (3.5-5.1); Sodium 144 mmol/L (136-145); Total Bilirubin 0.7 mg/dL (0.15-1.2); Total Protein 7.4 g/dL (6.6-8.7)
[2020-07-25] VITALS (9 sets, daily range): BP systolic 92–132; BP diastolic 66–101; PULSE 103–116; RESP 16–18; O2SAT 72–98
[2020-07-25] MEDS: sodium chloride 0.9% 1,000 ML 999 ML IV ×2 (00:10→01:34)
[2020-07-25] MEDS: folic acid 1 MG, multivitamin inj 10 ML, thiamine 100 MG in sodium chloride 0.9% 1,000 ML 252.8 MG IV (00:14)
[2020-07-25] MEDS: ondansetron 2 mg/ML SDV 2 mL 4 MG IVP (00:14)
[2020-07-25 01:47] LABS: Alcohol Level 342 mg/dL (0-10)
[2020-07-25 06:11] LABS: Alcohol Level 222 mg/dL (0-10)
--- NOTE | 2020-07-25 07:17 | PC.NURSE ---
pt oxygen saturation dropping into 80's %. pt placed on 2L supplemental oxygen via nasal cannula
--- NOTE | 2020-07-25 09:01 | PC.NURSE ---
Pt noted to have saturations drop to 72%. Nursing and RT to pt bedside, Dr Rhoades already at bedside. Pt reports he has sleep apnea but does not wear oxygen at home. Pt placed on 2LNC and saturations immediately came up to 96% on 2LNC. Dr Rhoades requesting EKG and home O2 eval.
--- NOTE | 2020-07-25 09:29 | PC.NURSE ---
Pt ambulated in hallway without assistance. Pt tolerated well, no difficulty.
[2020-07-25] MEDS: metoprolol tartrate 25 mg Tablet PO (09:30)
[2020-07-25] MEDS: metoprolol tartrate 1 mg/1 mL SDV 5 mL 2.5 MG IV (09:30)
== END 2020-07-25 12:00 | disposition home or self-care (01) ==
PROVIDERS: Emergency Medicine; Emergency Provider Family Medicine
DX: I48.91 Unspecified atrial fibrillation (principal); F10.129 Alcohol abuse with intoxication, unspecified; G47.30 Sleep apnea, unspecified; I11.0 Hypertensive heart disease with heart failure; I50.9 Heart failure, unspecified; Z87.891 Personal history of nicotine dependence
CPT/HCPCS: 12345; 70450; 71045; 72100; 72125; 72170; 80053; 80307; 83735; 85025; 93005; 96361; 96374; 96375; 99284; J2405; J3411; J3490; J7030

== ENCOUNTER 2020-07-30 14:43 | Emergency (ER) | payer MEDICARE, MEDICAID, SELFPAY ==
[2020-07-30] VITALS (8 sets, daily range): BP systolic 102–152; BP diastolic 73–102; PULSE 93–132; RESP 15–22; O2SAT 94–98; BMI 23.1
--- NOTE | 2020-07-30 16:18 | ECG_ITS ---
[facility] Test Date: 2020-07-30 Pat Name: Derrek Crowe Department: Room: Gender: Male Ssn/Ssbn Assistant Navigator: : 1965 Requested By: Gabriela Kearns Order Number: [id number] Sean MD: RENY ENCISO Measurements Intervals [place] Rate: 125 P: AK: -1 QRS: 10 QRSD: 110 T: 53 QT: 336 QTc: 485 Interpretive Statements ATRIAL FIBRILLATION WITH RAPID VENTRICULAR RESPONSE ABNORMAL RHYTHM ECG Compared to ECG 07/25/2020 00:10:48 Intraventricular conduction delay no longer present T-wave abnormality no longer present Electronically Signed On 07-30-2020 20:14:12 THERMAL [employer] by RENY ENCISO [id number] f
--- NOTE | 2020-07-30 16:18 | XRR_ITS ---
PROCEDURE INFORMATION: Exam: XR Chest, 1 View Exam date and time: 07/30/2020 5:02 PM Age: 55 years old Clinical indication: Other: HTN; Chest pain; Type not specified TECHNIQUE: Imaging protocol: XR of the chest Views: 1 view. COMPARISON: CR XR chest 1V portable [id number] 07/24/2020 11:12 PM FINDINGS: Lungs: There is a benign calcified granuloma in the right base which is unchanged. The lungs are otherwise clear. No pneumonia is seen. Pleural space: Unremarkable. No pleural effusion. No pneumothorax. Heart/Mediastinum: The cardiac silhouette is enlarged but unchanged. Bones/joints: Mild scoliosis convex to the right. XR/XR chest 1V portable [id number] IMPRESSION: 1. Cardiomegaly. 2. No acute abnormality.
--- NOTE | 2020-07-30 17:03 | W.ED.GENADLT ---
HPI - General Adult General: Chief complaint: General Medical Stated complaint: LE edema, reddness face Time Seen by Provider: 07/30/20 16:17 Source: patient Mode of arrival: ambulatory Limitations: no limitations History of Present Illness: HPI narrative: 55-year-old male states has not seen his PCP in months and has not been taking any of his meds. Does have a history of A. fib along with congestive heart failure. Patient states he has had increased swelling in his legs and some palpitations. Patient is in A. fib here. He states he has not taken his meds in months. Denies any chest pain denies any shortness of breath. Denies any vomiting or diarrhea. Associated symptoms: Deny chest pain, dyspnea, headache(s), nausea, rash or vomiting Review of Systems Const: Denies: fever(s), chills, body aches or change in appetite Eyes: Denies: blurry vision or eye discomfort ENMT: Denies: throat pain or dental pain Card: Denies: chest pain Resp: Denies: dyspnea GI: Denies: abdominal pain, nausea, vomiting or diarrhea : Denies: dysuria Musc: Denies: neck pain or back pain Skin/Breast: Reports: erythema; Denies: rash Neuro: Denies: headache(s) Psych: Denies: depression [place]/Lymph: Denies: easy bruising All/Imm: Denies: urticaria PFSH ED PFSH: Medical History Anxiety Atrial fibrillation Congestive heart failure GERD (gastroesophageal reflux disease) Hypertension Family History Father Cancer Social History Smoking and tobacco status: former smoker Physical Exam Const: COMMON NORMALS: no acute distress, patient oriented x3 and healthy appearing HENMT: COMMON NORMALS: normocephalic and atraumatic HEAD & SCALP: normocephalic and atraumatic Eye: COMMON NORMALS: Equal, round and reactive pupils present and EOMs intact bilaterally PUPIL: Yes Equal, round and reactive pupils present Neck/C-Spine: COMMON NORMALS: full ROM and supple Chest: COMMONS NORMALS: normal inspection of the chest and normal palpation of entire chest wall Resp: COMMON NORMALS: normal respiratory effort, No retractions, No use of accessory muscles and clear to auscultation bilaterally AUSCULTATION: clear to auscultation bilaterally Cardio: COMMON NORMALS: regular rate and No murmurs present (Cardio) RATE: regular rate and tachycardic RHYTHM: abnormal rhythm irregularly irregular GI: COMMON NORMALS: Normal to inspection, nondistended, normoactive bowel sounds present, Soft to palpation, non-tender and no masses PALPATION: Yes Soft to palpation Extremity: COMMON NORMALS: normal to inspection and full ROM NARRATIVE EXTREMITY EXAM: 2+ edema to lower extremities Neuro: COMMON NORMALS: patient oriented x3, moves all extremities and no focal motor deficits Psych: COMMON NORMALS: mental status grossly normal, Normal thought process present and cooperative THOUGHT PROCESS: Normal thought process present Skin: COMMON NORMALS: no rashes or lesions noted and no wounds GENERAL SKIN EXAM: no rashes or lesions noted Course Vital Signs: Vital signs: Vital Signs Pulse Rate 114 H 07/30/20 19:04 Respiratory Rate 18 07/30/20 19:04 Blood Pressure 130/99 07/30/20 19:04 Pulse Oximetry 96 07/30/20 19:04 MDM - General Adult MDM Narrative: Medical decision making narrative: Derrek presents here with lower extremity edema along with A. fib. This is due to his noncompliance on meds. His heart rate here is improved and is now 103. Patient also given Lasix here. We will start him back on his digoxin along with Lasix and Eliquis. He has no signs of blood clot. Patient is stable for discharge is to follow-up PCP in 3 to 5 days return if worsening. Lab Data: Labs: Lab Results 07/30/20 07/30/20 07/30/20 Range/Units 17:50 17:50 18:04 WBC Cancelled 7.1 Corrected WBC Cancelled RBC Cancelled 4.37 Hgb Cancelled 14.6 Hct Cancelled 46.0 MCV Cancelled 105.3 H MCH Cancelled 33.4 MCHC Cancelled 31.7 RDW Cancelled 14.6 Plt Count Cancelled 212 MPV Cancelled 10.7 H Gran % Cancelled Neut % (Auto) Cancelled 47.6 Lymph % (Auto) Cancelled 38.6 [place] % (Auto) Cancelled 11.3 Eos % (Auto) Cancelled 1.1 Baso % (Auto) Cancelled 1.1 Neut # (Auto) Cancelled 3.35 Lymph # (Auto) Cancelled 2.7 [place] # (Auto) Cancelled 0.8 Eos # (Auto) Cancelled 0.1 Baso # (Auto) Cancelled 0.1 Absolute Gran (aut o) Cancelled Nucleated RBC % (a uto) Cancelled 0 Nucleated RBCs # Cancelled 0.0 Sodium 141 (136-145) mmol/L Potassium 4.5 (3.5-5.1) mmol/L Chloride 105 (98-107) mmol/L Carbon Dioxide 24 (22-29) mmol/L Anion Gap 16.5 (5-19) BUN 12 (6-20) mg/dL Creatinine 0.6 L (0.7-1.2) mg/dL GFR Calculation 138.9 H (90-130) mL/min Glucose 84 (65-115) mg/dL Calculated Osmolal ity 291 (285-295) mOsm/k g Calcium 8.8 (8.5-10.5) mg/dL Total Bilirubin 0.7 (0.15-1.2) mg/dL AST 67 H (0-40) U/L ALT 44 H (0-41) U/L Alkaline Phosphata se 97 (40-130) IU/L NT-Pro-B Natriuret Pep 1351 H (0-125) pg/mL Total Protein 7.5 (6.6-8.7) g/dL Albumin 4.1 (3.5-5.2) g/dL Globulin 3.4 (1.3-4.6) g/dL Imaging Data^: CXR: Attestation: I personally reviewed and interpreted this imaging study as follows: My impression: No acute abnormality EKG Data^: EKG 1: Attestation: I personally reviewed and interpreted this EKG as follows: EKG interpretation date: 07/30/20 EKG interpretation time: 16:46 Interpretation: afib with rvr hr [address] or t wave abnormalities qrs 110 qtc 410 Discharge Plan Discharge Patient Disposition: Home Clinical Impression: Congestive heart failure Qualifiers: Heart failure type: unspecified Heart failure chronicity: chronic Qualified Code(s): I50.9 - Heart failure, unspecified Atrial fibrillation Qualifiers: Atrial fibrillation type: unspecified Qualified Code(s): I48.91 - Unspecified atrial fibrillation Condition: Stable Prescriptions: Continued furosemide 40 mg Tablet 40 mg PO DAILY Qty: 30 RF: 0 digoxin 250 mcg (0.25 mg) Tablet 250 mcg PO DAILY Qty: 30 RF: 0 Eliquis 5 mg Tablet 5 mg PO BID Qty: 60 RF: 0 No Action citalopram 40 mg Tablet 40 mg PO DAILY RF: 0 naltrexone 50 mg Tablet 50 mg PO DAILY RF: 0 metoprolol tartrate 50 mg Tablet 50 mg PO BID RF: 0 omeprazole 20 mg Capsule,Delayed Release(Dr/Ec) 20 mg PO DAILY RF: 0 folic acid 1 mg Tablet 1 mg PO DAILY RF: 0 lisinopril 2.5 mg Tablet 2.5 mg PO DAILY RF: 0 spironolactone 12.5 mg PO DAILY RF: 0 Discharge Orders: Discharge Order (Routine); Ordered 07/30/20 Ordered By: Gabriela Kearns Discharge Diet: Advance as tolerated Discharge Activity: Resume usual activity Patient Instructions: Heart Failure (ED), Atrial Fibrillation (ED) Coding Level of Care Code ED [employer] Feeder for Angelica Fwd Exam Comprehensive
--- NOTE | 2020-07-30 18:13 | PC.NURSE ---
states he has a lot of meds to take but doesnt take them
[2020-07-30 18:22] LABS: Basophils # 0.1 10^3/uL (0.0-0.1); Basophils % 1.1 %; Eosinophils # 0.1 10^3/uL (0.0-0.8); Eosinophils % 1.1 %; Hemoglobin 14.6 g/dL (11.7-16.6); Lymphocytes # 2.7 10^3/uL (0.8-4.8); Lymphocytes % 38.6 %; Mean Corpuscular HGB Conc 31.7 g/dL (30.0-36.0); Mean Corpuscular Hemoglobin 33.4 pg (28.0-34.0); Mean Corpuscular Volume 105.3 fL (80-94); Mean Platelet Volume 10.7 fL (7.4-10.4); Monocytes # 0.8 10^3/uL (0.2-0.9); Monocytes % 11.3 %; Neutrophils # 3.35 10^3/uL (1.8-7.7); Neutrophils % 47.6 %; Nucleated Red Blood Cells % 0 %; Platelet Count 212 10^3/cmm (130-400); Red Blood Count 4.37 10^6/uL (4.1-5.3); Red Cell Distribution Width 14.6 % (12.1-15.1); White Blood Count 7.1 10^3/uL (4.0-10.0)
[2020-07-30 19:47] LABS: Alanine Aminotransferase 44 U/L (0-41); Albumin Level 4.1 g/dL (3.5-5.2); Alkaline Phosphatase 97 IU/L (40-130); Anion Gap 16.5 (5-19); Aspartate Amino Transferase 67 U/L (0-40); Blood Urea Nitrogen 12 mg/dL (6-20); Calcium 8.8 mg/dL (8.5-10.5); Carbon Dioxide 24 mmol/L (22-29); Chloride 105 mmol/L (98-107); Globulin 3.4 g/dL (1.3-4.6); Glomerular Filtration Rate 138.9 mL/min (90-130); Glucose 84 mg/dL (65-115); NT Pro B Type Natriuretic Pept 1351 pg/mL (0-125); Osmolality Calculated 291 mOsm/kg (285-295); Potassium 4.5 mmol/L (3.5-5.1); Sodium 141 mmol/L (136-145); Total Bilirubin 0.7 mg/dL (0.15-1.2); Total Protein 7.5 g/dL (6.6-8.7)
[2020-07-30] MEDS: FUROsemide 10 mg/mL SDV 4mL 40 MG IVP (20:32)
[2020-07-30] MEDS: dilTIAZem 60 mg Tablet PO (20:32)
[2020-07-30 21:16] LABS: Digoxin 0.4 ng/mL (0.6-1.2)
== END 2020-07-30 21:19 | disposition home or self-care (01) ==
PROVIDERS: Emergency Provider Emergency Medicine
DX: I48.91 Unspecified atrial fibrillation (principal); I50.9 Heart failure, unspecified; Z87.891 Personal history of nicotine dependence
CPT/HCPCS: 12345; 71045; 80053; 80162; 83880; 85025; 93005; 96374; 96375; 96376; 99283; J1940; J3490

== ENCOUNTER → 2020-10-05 09:21 | Outpatient (BNVA) | payer MEDICARE, MEDICAID, SELFPAY | PROVIDERS: Visit Provider Family Medicine | DX: E78.2 Mixed hyperlipidemia (principal); I10 Essential (primary) hypertension; F32.9 Major depressive disorder, single episode, unspecified; I48.91 Unspecified atrial fibrillation; I50.9 Heart failure, unspecified | CPT/HCPCS: 80053; 80061; 84443; 85025 ==

== ENCOUNTER → 2020-10-30 10:23 | Outpatient (BNVA) | payer MEDICARE, MEDICAID, SELFPAY | PROVIDERS: Visit Provider Family Medicine | DX: E03.9 Hypothyroidism, unspecified (principal); R74.8 Abnormal levels of other serum enzymes | CPT/HCPCS: 80076; 84439; 84443; 84481 ==

== ENCOUNTER 2021-02-08 21:22 | Emergency (ER) | payer MEDICARE, MEDICAID, SELFPAY ==
[2021-02-08 21:48] VITALS: BP 124/68; PULSE 95; RESP 18; TEMP 36.8; O2SAT 96; BMI 23.1
--- NOTE | 2021-02-08 21:48 | W.ED.FALL ---
HPI - Fall General: Chief Complaint: Fall Stated Complaint: FALL Time Seen by Provider: 02/08/21 21:30 Source: patient and EMS Mode of arrival: EMS Limitations: no limitations History of Present Illness: HPI Narrative: Patient is a 55-year-old male who presents to the ED today via EMS for evaluation following a fall. Patient arrives acutely intoxicated. EMS and patient story align in that they state he was standing up from a chair when he took a few steps and states he got dizzy and fell onto his knees. Fall was witnessed by his mother. Patient did not strike his head. There was no LOC. He sustained an abrasion to his left knee but has been ambulatory without difficulty since the fall. He does not complain of knee pain. He complains of some lower back pain but states this is chronic. He denies chest pain, shortness of breath, difficulty breathing. MD complaint: fall Onset (ago): hour(s) Fall from: standing Fall witnessed: yes, by family Place fall occurred: home Loss of consciousness: None Prolonged down time: no Symptoms prior to fall: dizziness Context: alcohol use Associated symptoms-after fall: Denies abdominal pain, chest pain, confusion, difficulty walking, headache(s), lightheadedness, neck pain or vertigo Review of Systems Const: Denies: fever(s), chills, body aches, fatigue or malaise Eyes: Denies: change in vision or blurry vision Card: Denies: chest pain, palpitations, irregular heart rhythm, edema, lightheadedness, syncope, pre-syncope, dyspnea on exertion, orthopnea or leg pain with exertion Resp: Denies: dyspnea, productive cough, non-productive cough, wheezing, pain on inspiration, hemoptysis or chest congestion GI: Denies: abdominal pain, nausea, vomiting, heartburn or diarrhea : Denies: difficulty urinating or dysuria Musc: Reports: back pain (chronic); Denies: neck pain, extremity pain, extremity swelling, joint pain or joint swelling Skin/Breast: Denies: rash Neuro: Reports: dizziness (subsided now); Denies: headache(s), numbness in extremities, weakness in extremities, sensory changes, difficulty walking, vertigo or confusion PFS ED PFSH: Medical History (Updated 02/09/21 @ 00:27 by Kate Apodaca, PA) Anxiety Atrial fibrillation Congestive heart failure GERD (gastroesophageal reflux disease) Hypertension Family History Father Cancer Social History Smoking and tobacco status: former smoker Physical Exam Const: COMMON NORMALS: no acute distress, average body habitus, patient oriented x3, no limitations, alert and well nourished GENERAL APPEARANCE: cooperative and odor of alcohol detected ORIENTATION/CONSCIOUSNESS: Yes awake, Yes oriented to person, Yes oriented to place and Yes oriented to time HENMT: COMMON NORMALS: normocephalic, atraumatic, hearing grossly normal bilaterally, EAC's normal and TM's normal bilaterally HEAD & SCALP: normal to inspection, normocephalic and atraumatic FACE & SINUS: normal facial exam EXTERNAL AUDITORY CANAL: EAC's normal TYMPANIC MEMBRANE: TM's normal bilaterally Eye: COMMON NORMALS: Equal, round and reactive pupils present and EOMs intact bilaterally GENERAL EYE: appearance normal, both eyes and all related structures PUPIL: Yes Equal, round and reactive pupils present Neck/C-Spine: COMMON NORMALS: full ROM CERVICAL SPINE: Yes cervical ROM normal, No pain with cervical ROM and No Cervical spine tenderness Resp: COMMON NORMALS: normal respiratory effort and clear to auscultation bilaterally AUSCULTATION: clear to auscultation bilaterally Cardio: COMMON NORMALS: regular rate RATE: regular rate RHYTHM: abnormal rhythm irregularly irregular (hx of atrial fib) GI: COMMON NORMALS: Normal to inspection, nondistended, normoactive bowel sounds present, Soft to palpation, non-tender, No hepatosplenomegaly present and no masses PALPATION: Yes Soft to palpation and Yes No hepatosplenomegaly present Back/Pelvis: THORACIC SPINE/UPPER BACK: Yes normal to inspection, Yes thoracic ROM normal and No thoracic spinal tenderness LUMBAR SPINE/LOWER BACK: Yes lumbar ROM normal, Yes lumbar spinal tenderness (low L spine), No paraspinal muscle spasm and Yes straight leg raise negative bilaterally Extremity: COMMON NORMALS: full ROM NARRATIVE EXTREMITY EXAM: mild abrasion to L anterior knee; full painless ROM GENERAL: Yes normal exam except as noted Neuro: VERN COMA SCALE: document GCS findings [place] coma scale eye opening: Spontaneous [place] coma scale verbal response: Orientated [place] coma scale motor response: Obey commands [place] coma scale total score: 15 COMMON NORMALS: patient oriented x3, CN's II-XII intact bilaterally, moves all extremities, no focal motor deficits and no sensory deficits noted SENSORIUM/ORIENTATION: Yes alert, Yes oriented to person, Yes oriented to place and Yes oriented to time Course Vital Signs: Vital signs: Vital Signs Temperature 98.2 F 02/08/21 21:48 Pulse Rate 82 02/08/21 23:05 Respiratory Rate 16 02/08/21 23:05 Blood Pressure 107/74 02/08/21 23:05 Pulse Oximetry 97 02/08/21 23:05 MDM - Fall MDM Narrative: Medical decision making narrative: Patient here for evaluation following a fall. Witness and patient account of the fall states he fell onto his knees. He has been ambulatory since the fall without difficulty. He complained of some minor lower back pain however this is chronic for patient. XR obtained and were negative apart from a T12 fracture that was present back in 2019. Labs are overall non-concerning. He has mild LFT elevation secondary to alcohol use. He is acutely intoxicated however alert and oriented and answering all questions appropriately. Patient is stable for discharge pending a safe ride home. Lab Data: Labs: Lab Results 02/08/21 02/08/21 02/08/21 Range/Units 22:17 22:17 22:17 WBC 8.1 (4.0-10.0) 10^3/ uL RBC 4.36 (4.1-5.3) 10^6/u L Hgb 14.7 (11.7-16.6) g/dL Hct 45.1 (42.0-52.0) % MCV 103.4 H (80-94) fL MCH 33.7 (28.0-34.0) pg MCHC 32.6 (30.0-36.0) g/dL RDW 13.9 (12.1-15.1) % Plt Count 218 (130-400) 10^3/c mm MPV 10.9 H (7.4-10.4) fL Neut % (Auto) 52.2 % Lymph % (Auto) 37.8 % [place] % (Auto) 7.7 % Eos % (Auto) 1.4 % Baso % (Auto) 0.7 % Neut # (Auto) 4.22 (1.8-7.7) 10^3/u L Lymph # (Auto) 3.1 (0.8-4.8) 10^3/u L [place] # (Auto) 0.6 (0.2-0.9) 10^3/u L Eos # (Auto) 0.1 (0.0-0.8) 10^3/u L Baso # (Auto) 0.1 (0.0-0.1) 10^3/u L Nucleated RBC % (a uto) 0 % Nucleated RBCs # 0.0 /100WBC Sodium Cancelled Potassium Cancelled Chloride Cancelled Carbon Dioxide Cancelled Anion Gap Cancelled BUN Cancelled Creatinine Cancelled GFR Calculation Cancelled Glucose Cancelled Calculated Osmolal ity Cancelled Calcium Cancelled Total Bilirubin Cancelled AST Cancelled ALT Cancelled Alkaline Phosphata se Cancelled Troponin T Baselin e 10 (0-15) ng/L Total Protein Cancelled Albumin Cancelled Globulin Cancelled Digoxin (0.6-1.2) ng/mL Ethyl Alcohol Cancelled 02/08/21 02/08/21 Range/Units 22:17 23:13 WBC (4.0-10.0) 10^3/ uL RBC (4.1-5.3) 10^6/u L Hgb (11.7-16.6) g/dL Hct (42.0-52.0) % MCV (80-94) fL MCH (28.0-34.0) pg MCHC (30.0-36.0) g/dL RDW (12.1-15.1) % Plt Count (130-400) 10^3/c mm MPV (7.4-10.4) fL Neut % (Auto) % Lymph % (Auto) % [place] % (Auto) % Eos % (Auto) % Baso % (Auto) % Neut # (Auto) (1.8-7.7) 10^3/u L Lymph # (Auto) (0.8-4.8) 10^3/u L [place] # (Auto) (0.2-0.9) 10^3/u L Eos # (Auto) (0.0-0.8) 10^3/u L Baso # (Auto) (0.0-0.1) 10^3/u L Nucleated RBC % (a uto) % Nucleated RBCs # /100WBC Sodium 144 Potassium 3.9 Chloride 106 Carbon Dioxide 27 Anion Gap 14.9 BUN 7 Creatinine 0.5 L GFR Calculation 171.4 H Glucose 87 Calculated Osmolal ity 295 Calcium 8.4 L Total Bilirubin 0.7 AST 64 H ALT 49 H Alkaline Phosphata se 76 Troponin T Baselin e (0-15) ng/L Total Protein 6.9 Albumin 3.8 Globulin 3.1 Digoxin 0.3 L (0.6-1.2) ng/mL Ethyl Alcohol 368 H* Imaging Data^: XR lumbar: My impression: T12 fracture was present on films back in 2019 Radiologist's impression: [facility] [address] [place] [address] XRay Report Signed Patient: Derrek Crowe Unit #: [id number] : 1965 Age/Sex: 55 / M ADM Date: 02/08/21 Loc: ER Room/Bed: Attending Dr: Ordering Provider/Ordering MD: Kate Apodaca Date of Service: 02/08/21 Procedure(s): XR lumbar spine 2-3V* 11596 Accession Number(s): [id number] Report Number: [id number] PROCEDURE INFORMATION: Exam: XR Lumbosacral Spine Exam date and time: 02/08/2021 9:59 PM Age: 55 years old Clinical indication: Injury or trauma; Blunt trauma (contusions or hematomas); Injury details: Fall x 2 days. C/O low back pain; Additional info: Fall/pain TECHNIQUE: Imaging protocol: XR of the lumbosacral spine. Views: 2 or 3 views. Total images: 3 COMPARISON: CR XR pelvis 1-2V* [id number] 07/24/2020 11:12 PM FINDINGS: Bones/joints: Mild scoliotic curvature. Mild compression deformity T12 age indeterminate. Mild degenerative disease with spondylosis deformans. Intervertebral disc space heights relatively preserved throughout for age. Pedicles intact. No visible spondylolysis or spondylolisthesis. Mild facet arthrosis L5/S1. Soft tissues: Unremarkable. XR/XR lumbar spine 2-3V* [id number] IMPRESSION: Mild compression deformity T12 age indeterminate. Dictated By: Rafa Cox Signed By: Rafa Cox Signed Date/Time: 02/08/212302 DD/ 01 EKG Data^: EKG 1: EKG interpretation date: 02/08/21 EKG interpretation time: 22:04 Interpretation: Atrial fibrillation Rate [address] elevation or depression changes noted Discharge Plan Discharge Patient Disposition: Home Clinical Impression: Acute alcohol intoxication Qualifiers: Complication of substance-induced condition: uncomplicated Qualified Code(s): F10.920 - Alcohol use, unspecified with intoxication, uncomplicated Fall Qualifiers: Encounter type: initial encounter Qualified Code(s): W19.XXXA - Unspecified fall, initial encounter Condition: Stable Prescriptions: No Action spironolactone 25 mg tablet 12.5 mg PO DAILY Qty: 30 RF: 3 citalopram 40 mg tablet 40 mg PO DAILY Qty: 30 RF: 3 digoxin 250 mcg (0.25 mg) tablet 250 mcg PO DAILY Qty: 30 RF: 3 folic acid 1 mg tablet 1 mg PO DAILY Qty: 30 RF: 3 lisinopril 2.5 mg tablet 2.5 mg PO DAILY Qty: 30 RF: 3 naltrexone 50 mg tablet 50 mg PO DAILY Qty: 30 RF: 3 omeprazole 20 mg capsule,delayed release(DR/EC) 20 mg PO DAILY Qty: 30 RF: 3 Eliquis 5 mg tablet 5 mg PO BID Qty: 60 RF: 3 furosemide 40 mg tablet 40 mg PO DAILY Qty: 30 RF: 3 metoprolol tartrate 50 mg tablet See Rx Instructions .ROUTE .COMPLEX Qty: 30 RF: 1 spironolactone 12.5 mg PO DAILY RF: 0 Discharge Orders: Discharge ED (Routine); Ordered 02/09/21 Ordered By: Kate Apodaca Patient Instructions: Alcohol Abuse, Alcohol Intoxication (ED) Coding Level of Care Code ED Publications Writer for Rajinderg Fwd Exam Comprehensive
--- NOTE | 2021-02-08 21:56 | XRR_ITS ---
PROCEDURE INFORMATION: Exam: XR Lumbosacral Spine Exam date and time: 02/08/2021 9:59 PM Age: 55 years old Clinical indication: Injury or trauma; Blunt trauma (contusions or hematomas); Injury details: Fall x 2 days. C/O low back pain; Additional info: Fall/pain TECHNIQUE: Imaging protocol: XR of the lumbosacral spine. Views: 2 or 3 views. Total images: 3 COMPARISON: CR XR pelvis 1-2V* [id number] 07/24/2020 11:12 PM FINDINGS: Bones/joints: Mild scoliotic curvature. Mild compression deformity T12 age indeterminate. Mild degenerative disease with spondylosis deformans. Intervertebral disc space heights relatively preserved throughout for age. Pedicles intact. No visible spondylolysis or spondylolisthesis. Mild facet arthrosis L5/S1. Soft tissues: Unremarkable. XR/XR lumbar spine 2-3V* [id number] IMPRESSION: Mild compression deformity T12 age indeterminate.
--- NOTE | 2021-02-08 21:57 | ECG_ITS ---
[facility] Test Date: 2021-02-08 Pat Name: Derrek Crowe Department: Room: Gender: Male Lab Aid: : [id number] Requested By: Kate Apodaca Order Number: [id number] Estrada MD: Derik Morgan M.D. Measurements Intervals [place] Rate: 85 P: CA: QRS: 1 QRSD: 116 T: 11 QT: 421 QTc: 502 Interpretive Statements ATRIAL FIBRILLATION MODERATE INTRAVENTRICULAR CONDUCTION DELAY [110+ ms QRS DURATION] NONSPECIFIC T-WAVE ABNORMALITY PROLONGED QT INTERVAL Compared to ECG 07/30/2020 16:46:54 Intraventricular conduction delay now present T-wave abnormality now present Prolonged QT interval now present Electronically Signed On 02-09-2021 14:47:39 CDT by Derik Morgan M.D. [id number] va
[2021-02-08] MEDS: sodium chloride 0.9% 1,000 ML 999 ML IV (22:12)
[2021-02-08 22:29] LABS: Basophils # 0.1 10^3/uL (0.0-0.1); Basophils % 0.7 %; Eosinophils # 0.1 10^3/uL (0.0-0.8); Eosinophils % 1.4 %; Hematocrit 45.1 % (42.0-52.0); Hemoglobin 14.7 g/dL (11.7-16.6); Lymphocytes # 3.1 10^3/uL (0.8-4.8); Lymphocytes % 37.8 %; Mean Corpuscular HGB Conc 32.6 g/dL (30.0-36.0); Mean Corpuscular Hemoglobin 33.7 pg (28.0-34.0); Mean Corpuscular Volume 103.4 fL (80-94); Mean Platelet Volume 10.9 fL (7.4-10.4); Monocytes # 0.6 10^3/uL (0.2-0.9); Monocytes % 7.7 %; Neutrophils # 4.22 10^3/uL (1.8-7.7); Neutrophils % 52.2 %; Nucleated Red Blood Cells % 0 %; Platelet Count 218 10^3/cmm (130-400); Red Blood Count 4.36 10^6/uL (4.1-5.3); Red Cell Distribution Width 13.9 % (12.1-15.1); White Blood Count 8.1 10^3/uL (4.0-10.0)
[2021-02-08 22:51] LABS: Digoxin 0.3 ng/mL (0.6-1.2); Troponin(5th) Baseline 10 ng/L (0-15)
--- NOTE | 2021-02-08 23:03 | PC.NURSE ---
patient report received from Angela JAMES and care transferred to JACOB Rm
[2021-02-08 23:05] VITALS: BP 107/74; PULSE 82; RESP 16; O2SAT 97
[2021-02-08 23:49] LABS: Alanine Aminotransferase 49 U/L (0-41); Albumin Level 3.8 g/dL (3.5-5.2); Alkaline Phosphatase 76 IU/L (40-130); Aspartate Amino Transferase 64 U/L (0-40); Blood Urea Nitrogen 7 mg/dL (6-20); Calcium 8.4 mg/dL (8.5-10.5); Carbon Dioxide 27 mmol/L (22-29); Chloride 106 mmol/L (98-107); Globulin 3.1 g/dL (1.3-4.6); Glomerular Filtration Rate 171.4 mL/min (90-130); Glucose 87 mg/dL (65-115); Osmolality Calculated 295 mOsm/kg (285-295); Sodium 144 mmol/L (136-145); Total Bilirubin 0.7 mg/dL (0.15-1.2); Total Protein 6.9 g/dL (6.6-8.7)
[2021-02-09 00:13] LABS: Anion Gap 14.9 (5-19); Potassium 3.9 mmol/L (3.5-5.1)
[2021-02-09 00:14] LABS: Alcohol Level 368 mg/dL (0-10)
[2021-02-09 00:37] LABS: Troponin 5 2HR 11.21 ng/L (0-15)
[2021-02-09 00:44] LABS: Troponin 5 2HR Delta 1.21 ABS# (0-10)
[2021-02-09 00:55] VITALS: BP 110/74; PULSE 82; RESP 14; O2SAT 98
== END 2021-02-09 02:28 | disposition home or self-care (01) ==
PROVIDERS: Emergency Provider Physician Assistant
DX: F10.920 Alcohol use, unspecified with intoxication, uncomplicated (principal); Z79.01 Long term (current) use of anticoagulants; W19.XXXA Unspecified fall, initial encounter; Y90.8 Blood alcohol level of 240 mg/100 ml or more; I48.91 Unspecified atrial fibrillation; I11.0 Hypertensive heart disease with heart failure; I50.9 Heart failure, unspecified; Z87.891 Personal history of nicotine dependence; Z79.899 Other long term (current) drug therapy
CPT/HCPCS: 36415; 72100; 80053; 80162; 80307; 84484; 85025; 93005; 96360; 99284; J7030

== ENCOUNTER 2021-08-06 12:00 | Emergency (ER) | payer MEDICARE, MEDICAID, SELFPAY ==
[2021-08-06 12:01] VITALS: BP 116/77; PULSE 101; RESP 18; TEMP 36.8; O2SAT 96; BMI 22.4
--- NOTE | 2021-08-06 12:04 | ED_ITS ---
HPI - Fall General: Chief Complaint: Fall Stated Complaint: FALL/ LOC/ HIT HEAD Time Seen by Provider: 08/06/21 12:03 History of Present Illness: HPI Narrative: Mr. Crowe is a 56-year-old gentleman with significant past medical history of substance abuse and atrial fibrillation on anticoagulation who presents emergency department due to fall. The patient is unsure of exact why he fell. He does not recall specific events though perhaps he felt dizzy. He is unsure of what time he fell or how long he was on the ground. He does have a history of similar where he wakes up on the floor. He currently endorses left wrist pain. Patient appears clinically i ntoxicated or encephalopathic. History is otherwise limited secondary to this. No other known specific exacerbating relieving factors. Patient reports compliance with medication regimen. Patient is followed Eliquis and reports compliance with his medication regimen. Review of Systems General: Reports: ROS unobtainable due to mental status [facility] PFSH: Medical History Anxiety Atrial fibrillation Congestive heart failure GERD (gastroesophageal reflux disease) Hypertension Family History Father Cancer Social History Smoking and tobacco status: former smoker Physical Exam Narrative: EXAM NARRATIVE: GENERAL/CONSTITUTIONAL - well-appearing. No acute distress. Eyes - PERRL, no scleral icterus no conjunctival injection ENMT - Atraumatic external nose and ears. Moist mucous membranes NECK - supple. trachea midline CARDIOVASCULAR - regular rate and rhythm. Peripheral pulses 2+ and equal RESPIRATORY -clear to auscultation bilaterally. No retractions or accessory muscle use. ABDOMEN/GI - Nontender/Nondistended. No tenderness to percussion or evidence of peritonitis MSK -left wrist with ecchymosis and tenderness palpation, no obvious deformity. No snuffbox tenderness. No compromise of distal CMS. SKIN - Warm, Dry. Scattered contusions and abrasions NEURO - alert and appropriately oriented. Cranial nerves intact. Strength and sensation intact. Moves all extremities equally. PSYCH -mildly impaired cognition and memory Course ED course: - Patient was seen and evaluated by me at bedside - Patient placed on cardiac monitors, IV access obtained - Initial evaluation notable for exam as noted above, no acute distress. Patient appears clinically intoxicated - Labs notable for no acute abnormality to explain altered mental status with exception of elevated ethyl alcohol level 351. - Imaging notable for no acute traumatic injury, any chronic findings. - Upon serial reexamination after treatment the patient was improved. He was observed till clinical sobriety achieved, he was able to ambulate without difficulty, tolerated p.o. intake, speech without slurring, linear and goal oriented thought process. Patient expressed desire to leave the emergency department and based on my evaluation at that time patient is competent to make medical decisions. - Based on patient history, evaluation, labs, and imaging as interpreted the most likely cause of the patient's condition is acute alcohol intoxication with fall of unclear etiology - The results of ED evaluation were discussed with the patient including prescriptions and/or symptomatic cares (if applicable) including appropriate and responsible use, followup plan, and return precautions. I counseled the patient on risk of alcohol abuse especially in the context of apixaban use. The patient verbalized understanding and felt safe for discharge. - Patient discharged in satisfactory condition. Vital Signs: Vital signs: Vital Signs Temperature 98.2 F 08/06/21 12:07 Pulse Rate 81 08/06/21 15:59 Respiratory Rate 16 08/06/21 15:00 Blood Pressure 110/83 08/06/21 15:00 Pulse Oximetry 98 08/06/21 15:59 MDM - Fall Medical Records: Attestation: I reviewed the patient's medical records. Lab Data: Attestation: I reviewed the patient's lab results. Labs: Lab Results 08/06/21 08/06/21 08/06/21 12:56 12:56 12:56 WBC 7.7 10^3/uL 10^3/ uL (4.0-10.0) RBC 4.75 10^6/uL 10^6 /uL (4.1-5.3) Hgb 16.1 g/dL g/dL (11.7-16.6) Hct 49.0 % % (42.0-52.0) MCV 103.2 fl H fl (80-94) MCH 33.9 pg pg (28.0-34.0) MCHC 32.9 g/dL g/dL (30.0-36.0) RDW 12.3 % % (12.1-15.1) Plt Count 243 10^3/cmm 10^3 /cmm (130-400) MPV 10.9 fL H fL (7.4-10.4) Neut % (Auto) 53.3 % % Lymph % (Auto) 34.9 % % Dawson % (Auto) 9.7 % % Eos % (Auto) 1.0 % % Baso % (Auto) 0.7 % % Neut # (Auto) 4.08 10^3/uL 10^3 /uL (1.8-7.7) Lymph # (Auto) 2.7 10^3/uL 10^3/ uL (0.8-4.8) Dawson # (Auto) 0.7 10^3/uL 10^3/ uL (0.2-0.9) Eos # (Auto) 0.1 10^3/uL 10^3/ uL (0.0-0.8) Baso # (Auto) 0.1 10^3/uL 10^3/ uL (0.0-0.1) Nucleated RBC % (a uto) 0 % % Nucleated RBCs # 0.0 /100WBC /100W BC Sodium 139 mmol/L mmol/L (136-145) Potassium 4.3 mmol/L mmol/L (3.5-5.1) Chloride 103 mmol/L mmol/L (98-107) Carbon Dioxide 22 mmol/L mmol/L (22-29) Anion Gap 18.3 (5-19) BUN 10 mg/dL mg/dL (6-20) Creatinine 0.5 mg/dL L mg/dL (0.7-1.2) GFR Calculation 170.8 mL/min H mL /min (90-130) Glucose 74 mg/dL mg/dL (65-115) POC Glucose Calculated Osmolal ity 286 mOsm/kg mOsm/ kg (285-295) Lactate 2.1 mmol/L mmol/L (0.5-2.2) Calcium 9.1 mg/dL mg/dL (8.5-10.5) Total Bilirubin 0.5 mg/dL mg/dL (0.15-1.2) AST 64 U/L H U/L (0-40) ALT 46 U/L H U/L (0-41) Alkaline Phosphata se 88 IU/L IU/L (40-130) Creatine Kinase 57 U/L U/L (39-308) Troponin T Baselin e Total Protein 7.5 g/dL g/dL (6.6-8.7) Albumin 3.8 g/dL g/dL (3.5-5.2) Globulin 3.7 g/dL g/dL (1.3-4.6) Ethyl Alcohol 351 mg/dL H* mg/d L (0-10) 08/06/21 08/06/21 12:56 13:25 WBC RBC Hgb Hct MCV MCH MCHC RDW Plt Count MPV Neut % (Auto) Lymph % (Auto) Dawson % (Auto) Eos % (Auto) Baso % (Auto) Neut # (Auto) Lymph # (Auto) Dawson # (Auto) Eos # (Auto) Baso # (Auto) Nucleated RBC % (a uto) Nucleated RBCs # Sodium Potassium Chloride Carbon Dioxide Anion Gap BUN Creatinine GFR Calculation Glucose POC Glucose 84 mg/dL mg/dL (70-110) Calculated Osmolal ity Lactate Calcium Total Bilirubin AST ALT Alkaline Phosphata se Creatine Kinase Troponin T Baselin e 11 ng/L ng/L (0-15) Total Protein Albumin Globulin Ethyl Alcohol EKG Data^: EKG 1: Attestation: I personally reviewed and interpreted this EKG as follows: EKG interpretation date: 08/06/21 EKG interpretation time: 12:59 Interpretation: Twelve-lead EKG shows an irregular rhythm at a rate of 88. No MT interval, QRS duration 108, QTc 410. Normal axis. Interpretation: Atrial fibrillation. EKG 2: Attestation: I personally reviewed and interpreted this EKG as follows: EKG interpretation date: 08/06/21 EKG interpretation time: 14:57 Interpretation: Twelve-lead EKG shows an irregular rhythm at a rate of 107. No MT interval, QRS duration 112, QTc 432. Normal axis. Interpretation: Atrial fibrillation, tachycardia. Continue to watch patient on telemetry, patient's heart rate remained well controlled with rates less than 100 greater than 95% of the time when evaluated. Discharge Plan Discharge Patient Disposition: Home Clinical Impression: Fall, Contusion of left wrist, Chronic alcohol abuse, Alcohol intoxication, Chronic anticoagulation, Atrial fibrillation Condition: Stable Prescriptions: No Action spironolactone 25 mg tablet 12.5 mg PO DAILY Qty: 30 RF: 3 folic acid 1 mg tablet 1 mg PO DAILY Qty: 30 RF: 3 lisinopril 2.5 mg tablet 2.5 mg PO DAILY Qty: 30 RF: 3 omeprazole 20 mg capsule,delayed release(DR/EC) 20 mg PO DAILY Qty: 30 RF: 3 Eliquis 5 mg tablet 5 mg PO BID Qty: 60 RF: 3 furosemide 40 mg tablet 40 mg PO DAILY Qty: 30 RF: 3 metoprolol tartrate 50 mg tablet See Rx Instructions .ROUTE .COMPLEX Qty: 30 RF: 1 naltrexone 50 mg tablet 50 mg PO DAILY Qty: 90 RF: 0 digoxin 250 mcg (0.25 mg) tablet See Rx Instructions .ROUTE .COMPLEX Qty: 30 RF: 0 citalopram 40 mg tablet See Rx Instructions .ROUTE .COMPLEX Qty: 30 RF: 0 spironolactone 12.5 mg PO DAILY RF: 0 Discharge Orders: Discharge ED (Routine); Ordered 08/06/21 Ordered By: Tha Roman Discharge Diet: Usual diet Discharge Activity: Resume usual activity Patient Instructions: A-fib (Atrial Fibrillation) (ED), Head Injury (ED), Abuse of Alcohol (ED), Fall Prevention (ED), Opioid Safety Activity Restrictions/Additional Instructions: Thank you for visiting the emergency department. You were seen and evaluated for fall with altered mental status. No acute internal injuries were identified. The mental status changes likely secondary to alcohol abuse. Please stop abusing alcohol. Please return to the emergency department for any fall, trauma, uncontrolled pain, or anything else that you're concerned about and feel needs emergency department evaluation. I recommend repeat x-rays in 1 week for your left wrist injury. Coding Level of Care Code ED Fixture Repairer Fabricator for Angelica Pollard
[2021-08-06 12:07] VITALS: BP 116/77; PULSE 101; RESP 18; TEMP 36.8; O2SAT 96
--- NOTE | 2021-08-06 12:24 | XR_ITS ---
WS: [id number] LEFT WRIST: 3 VIEW(S) TECHNIQUE: PA, oblique and lateral. HISTORY: trauma, pain, contusion COMPARISON: None available. No acute fracture or dislocation. Mild narrowing of the radial carpal joint space. There is soft tissue edema surrounding the wrist. XR/XR wrist LT min 3V* [id number] IMPRESSION: Mild soft tissue edema surrounding the wrist. No definite fracture is identifie d. If pain continues recommend follow-up radiographs in 5-7 days.
--- NOTE | 2021-08-06 12:24 | CT_ITS ---
WS: [id number] CT CHEST, ABDOMEN AND PELVIS WITH CONTRAST. HISTORY: trauma ams TECHNIQUE: Contiguous 5 mm axial imaging performed through the chest, abdomen and pelvis with IV cont rast, oral contrast has not been provided. Coronal and sagittal reformats chest. Coronal and sagittal reformats through the abdomen and pelvis. All CT scans at [facility] use at least one of the se dose optimization techniques: automated exposure control; mA and/or kV adjustment per patient size (includes targeted exams where dose is matched to clinical indication); or iterative reconstruction. CONTRAST: Omnipaque 350; 95 mL IV. DLP: 1722.2 mGy.cm COMPARISON: 09/01/[address]: No pneumothorax or pulmonary contusion. Benign partially calcified round nodule measuring 1 4 mm in the RIGHT middle lobe. No pericardial or pleural effusions. Heart is moderately enlarged, sim ilar to prior studies. Normal size pulmonary artery and aorta. No aortic injury is identified. No judith nopathy. Mild increase in thoracic kyphosis. Small hiatal hernia. Abdomen CT: Liver and spleen are normal. Gallbladder is contracted with stones. Normal common bile du ct and normal pancreas. Low-attenuation mass in the LEFT adrenal gland measures 17 x 19 mm and is sta ble. RIGHT adrenal gland is normal. No renal obstruction or solid mass. Mild atherosclerosis aorta. N o free fluid or free air. No adenopathy. The appendix is normal. No GI tract obstruction. There are numerous diverticula in the descending and sigmoid colon. No acute inflammation or obstruction. Pelvic CT: Normal urinary bladder. No free fluid or adenopathy in the pelvis. The shape thoracolumbar scoliosis. No acute fractures. Mild anterior wedging of T12 is stable. CT/CT chest abd pel w con* IMPRESSION: 1. No acute findings within the chest, abdomen or pelvis related to recent tra bridget. 2. Benign granuloma RIGHT middle lobe. 3. Moderately enlarged heart, chronic finding. 4. LEFT adrenal adenoma. 5. Descending and sigmoid colonic diverticulosis without acute diverticulitis. 6. No ascites. 7. No aortic injury.
--- NOTE | 2021-08-06 12:24 | XR_ITS ---
WS: [id number] LEFT FOREARM 2 VIEWS HISTORY: trauma, proximal pain with rom COMPARISON: None available. No fracture or dislocation. No foreign body or joint effusion. XR/XR forearm LT 2V [id number] IMPRESSION: Normal LEFT forearm.
--- NOTE | 2021-08-06 12:24 | CT_ITS ---
WS: [id number] CT HEAD NONCONTRAST HISTORY: trauma ams TECHNIQUE: Contiguous axial imaging performed through the brain in 2.5 mm imaging. Bone and soft tiss ue windows. Sagittal and coronal reformats reviewed. All CT scans at [facility] use at least one of these dose optimization techniques: automated exposure control; mA and/or kV adjustment per pa tient size (includes targeted exams where dose is matched to clinical indication); or iterative recon struction. DLP: 837.66 mGy.cm COMPARISON: 07/24/2020 and 10/28/2019 No acute intracranial hemorrhage, midline shift or mass effect. Mild atrophy and mild chronic microvascular ischemic disease. No significant progression since the pr ior examination. Ventricles: Ventricles are very mildly prominent on the basis of central atrophy. Very similar to th e prior study. No inferior displacement of cerebellar tonsils. Paranasal sinuses: As visualized are clear. Mastoid air cells: Well pneumatized. Calvarium and scalp: Skull is intact with no soft tissue edema or swelling. CT/CT head wo con* [id number] IMPRESSION: 1. No acute intracranial hemorrhage or edema. 2. Mild chronic microvascular ischemic disease and mild ventriculomegaly, no c hange.
--- NOTE | 2021-08-06 12:24 | CT_ITS ---
WS: [id number] CT CERVICAL SPINE HISTORY: trauma, ams TECHNIQUE: Contiguous 2.5 mm axial imaging performed through the entire cervical spine. Sagittal and coronal reformats also performed. All CT scans at [facility] use at least one of these dose o ptimization techniques: automated exposure control; mA and/or kV adjustment per patient size (include s targeted exams where dose is matched to clinical indication); or iterative reconstruction. DLP: 893.69 mGy.cm COMPARISON: 07/24/2020 Mild increase in the cervical lordosis. C3 retrolisthesis by 2 mm. C5 retrolisthesis by 1.5 mm. Disc spaces are narrowed with endplate hypertrophic osteophytes at all levels. Fusion across the LEFT C2-3 facet joint. Lateral masses of C1 and C2 are aligned. The odontoid is intact. Craniocervical junctio n is normal. C2-C3: Small central disc protrusion. C3-C4: Mild osteophytic ridging around the vertebral bodies slightly greater on the RIGHT. Mild bilat eral foraminal narrowing. C4-C5: Mild foraminal narrowing. C5-C6: Osteophytic ridging with mild central and foraminal narrowing. C6-C7: Mild osteophytic ridging with mild foraminal narrowing. C7-T1: Normal. Soft tissues are normal. Lung apices are clear. CT/CT cervical spin wo con* [id number] IMPRESSION: 1. No acute cervical spine fracture. 2. Mild spondylitic changes. No high-grade central stenosis.
--- NOTE | 2021-08-06 12:26 | ECG_ITS ---
[facility] Test Date: 2021-08-06 Pat Name: Derrek Crowe Department: Room: Gender: Male Package Clerk: : 1965 Requested By: Tha Roman Order Number: [id number] Sean MD: Susie Rodas M.D. Measurements Intervals [place] Rate: 88 P: IA: QRS: 6 QRSD: 108 T: 31 QT: 365 QTc: 442 Interpretive Statements ATRIAL FIBRILLATION ABNORMAL RHYTHM ECG Compared to ECG 02/08/2021 22:04:11 Intraventricular conduction delay no longer present T-wave abnormality no longer present Prolonged QT interval no longer present Electronically Signed On 08-07-2021 7:30:52 DIGITAL CARTOGRAPHER by Susie Rodas M.D. [id number]
[2021-08-06 12:59] VITALS: BP 120/72; PULSE 89; RESP 16; O2SAT 96
[2021-08-06 13:07] LABS: Basophils # 0.1 10^3/uL (0.0-0.1); Basophils % 0.7 %; Eosinophils # 0.1 10^3/uL (0.0-0.8); Hemoglobin 16.1 g/dL (11.7-16.6); Lymphocytes # 2.7 10^3/uL (0.8-4.8); Lymphocytes % 34.9 %; Mean Corpuscular HGB Conc 32.9 g/dL (30.0-36.0); Mean Corpuscular Hemoglobin 33.9 pg (28.0-34.0); Mean Corpuscular Volume 103.2 fl (80-94); Mean Platelet Volume 10.9 fL (7.4-10.4); Monocytes # 0.7 10^3/uL (0.2-0.9); Monocytes % 9.7 %; Neutrophils # 4.08 10^3/uL (1.8-7.7); Neutrophils % 53.3 %; Nucleated Red Blood Cells % 0 %; Platelet Count 243 10^3/cmm (130-400); Red Blood Count 4.75 10^6/uL (4.1-5.3); Red Cell Distribution Width 12.3 % (12.1-15.1); White Blood Count 7.7 10^3/uL (4.0-10.0)
[2021-08-06] MEDS: iohexol 350 mg/mL 100 mL Btl IV (13:16)
[2021-08-06 13:28] LABS: Glucose Point of Care 84 mg/dL (70-110)
[2021-08-06 13:37] LABS: Alanine Aminotransferase 46 U/L (0-41); Albumin Level 3.8 g/dL (3.5-5.2); Alkaline Phosphatase 88 IU/L (40-130); Aspartate Amino Transferase 64 U/L (0-40); Blood Urea Nitrogen 10 mg/dL (6-20); Calcium 9.1 mg/dL (8.5-10.5); Carbon Dioxide 22 mmol/L (22-29); Chloride 103 mmol/L (98-107); Creatine Phosphokinase 57 U/L (39-308); Globulin 3.7 g/dL (1.3-4.6); Glomerular Filtration Rate 170.8 mL/min (90-130); Glucose 74 mg/dL (65-115); Osmolality Calculated 286 mOsm/kg (285-295); Sodium 139 mmol/L (136-145); Total Bilirubin 0.5 mg/dL (0.15-1.2); Total Protein 7.5 g/dL (6.6-8.7)
[2021-08-06 13:38] LABS: Lactate (Lactic Acid level) 2.1 mmol/L (0.5-2.2)
[2021-08-06 13:39] LABS: Troponin(5th) Baseline 11 ng/L (0-15)
[2021-08-06 13:50] LABS: Anion Gap 18.3 (5-19); Potassium 4.3 mmol/L (3.5-5.1)
[2021-08-06 13:51] LABS: Alcohol Level 351 mg/dL (0-10)
[2021-08-06 14:14] VITALS: BP 110/53; PULSE 87; RESP 18; O2SAT 95
[2021-08-06 15:00] VITALS: BP 110/83; PULSE 78; RESP 16; O2SAT 98
--- NOTE | 2021-08-06 15:24 | PC.NURSE ---
PATIENT HAS EATEN AND WAS UP TO WALK. PATIENT GAIT STEADY. PATIENT STATES THAT HE FEELS BETTER THAN HE DID YESTERDAY. PATIENT BACK TO BED. PROVIDER NOTIFIED.
[2021-08-06 15:59] VITALS: PULSE 81; O2SAT 98
== END 2021-08-06 15:57 | disposition home or self-care (01) ==
PROVIDERS: Emergency Provider Emergency Medicine
DX: S60.212A Contusion of left wrist, initial encounter (principal); F10.229 Alcohol dependence with intoxication, unspecified; Y90.8 Blood alcohol level of 240 mg/100 ml or more; W18.30XA Fall on same level, unspecified, initial encounter; Z91.81 History of falling; T51.94XA Toxic effect of unspecified alcohol, undetermined, initial encounter; I48.91 Unspecified atrial fibrillation; Z79.01 Long term (current) use of anticoagulants; I11.0 Hypertensive heart disease with heart failure; I50.9 Heart failure, unspecified; Z87.891 Personal history of nicotine dependence; K21.9 Gastro-esophageal reflux disease without esophagitis
CPT/HCPCS: 36416; 70450; 71260; 72125; 73090; 73110; 74177; 80053; 80307; 82550; 82962; 83605; 84484; 85025; 93005; 99284; Q9967

== ENCOUNTER 2021-08-10 16:20 | Emergency (ER) | payer MEDICARE, MEDICAID, SELFPAY ==
--- NOTE | 2021-08-10 16:25 | XRR_ITS ---
PROCEDURE INFORMATION: Exam: XR Left Wrist Exam date and time: 08/10/2021 4:25 PM Age: 56 years old Clinical indication: Injury or trauma; Fall; Blunt trauma (contusions or hematomas); Wrist; Left; Additional info: Wrist pain after fall TECHNIQUE: Imaging protocol: XR Left wrist. Views: 3 or more views. COMPARISON: CR XR wrist LT min 3V* [id number] 08/06/2021 12:37 PM FINDINGS: Bones/joints: I now see oblique hairline incomplete intra-articular fracture through the distal radial metaphysis. Image 1002. Soft tissues: Continued soft tissue swelling over the wrist. XR/XR wrist LT min 3V* [id number] IMPRESSION: 1. I now see oblique hairline incomplete intra-articular fracture through the distal radial metaphysis. Image 1002. 2. Continued soft tissue swelling over the wrist. Radiation Dose CTDIVOL = (mGy): DLP = (mGy-cm)
--- NOTE | 2021-08-10 16:28 | CTR_ITS ---
PROCEDURE INFORMATION: Exam: CT Cervical Spine Without Contrast Exam date and time: 08/10/2021 4:28 PM Age: 56 years old Clinical indication: Injury or trauma; Fall; Blunt trauma; Additional info: Fall, hit head, alcohol intoxication TECHNIQUE: Imaging protocol: Computed tomography images of the cervical spine without contrast. Axial, coronal and sagittal reformatted images were created and reviewed. Radiation optimization: All CT scans at this facility use at least one of these dose optimization techniques: automated exposure control; mA and/or kV adjustment per patient size (includes targeted exams where dose is matched to clinical indication); or iterative reconstruction. COMPARISON: CT cervical spin wo con* [id number] 08/06/2021 1:03 PM RADIATION DOSE METRICS: Total DLP (mGy-cm): 958.79 FINDINGS: Bones/joints: Osteopenia. Reversal of the normal cervical lordosis. No CT evidence of acute fracture, dislocation or subluxation. Minimal retrolisthesis of C3 on C4, C4 on C5 and C5 on C6. Alignment otherwise anatomic. Mild levoscoliosis. Vertebral body heights maintained. Discs/Spinal canal/Neural foramina: Mild multilevel degenerative changes, characterized by disc space narrowing, osteophytosis and uncovertebral and facet joint hypertrophy. Mild multilevel spinal canal and neural foraminal narrowing. Lungs: Grossly unremarkable. Soft tissues: Grossly unremarkable. CT/CT cervical spin wo con* [id number] IMPRESSION: 1. No CT evidence of acute cervical spine traumatic injury. 2. Additional findings, as above. Radiation Dose CTDIVOL = (mGy): DLP = 958.79 (mGy-cm)
--- NOTE | 2021-08-10 16:28 | CTR_ITS ---
PROCEDURE INFORMATION: Exam: CT Head Without Contrast Exam date and time: 08/10/2021 4:28 PM Age: 56 years old Clinical indication: Injury or trauma; Fall; Blunt trauma (contusions or hematomas); Additional info: Fall, hit head, al intoxication TECHNIQUE: Imaging protocol: Computed tomography of the head without contrast. Axial, coronal and sagittal reformatted images were created and reviewed. Radiation optimization: All CT scans at this facility use at least one of these dose optimization techniques: automated exposure control; mA and/or kV adjustment per patient size (includes targeted exams where dose is matched to clinical indication); or iterative reconstruction. COMPARISON: CT head wo con* [id number] 08/06/2021 1:01 PM RADIATION DOSE METRICS: Total DLP (mGy-cm): 875.63 FINDINGS: Brain: Patchy and confluent areas of hypoattenuation in the periventricular and subcortical white matter, consistent with chronic small vessel ischemic disease. No CT evidence of acute intracranial hemorrhage or acute territorial infarction. No significant mass effect or midline shift. Basal cisterns patent. Cerebral ventricles: Prominence of the cortical sulci, cisterns and ventricular system, consistent with cerebral and cerebellar volume loss. Paranasal sinuses: Mild ethmoid and maxillary sinus mucosal thickening. No fluid levels. Mastoid air cells: Grossly unremarkable. Bones/joints: No acute osseous abnormality. Soft tissues: Grossly unremarkable. CT/CT head wo con* [id number] IMPRESSION: 1. No CT evidence of acute intracranial pathology. 2. Additional findings, as above. Radiation Dose CTDIVOL = (mGy): DLP = 875.63 (mGy-cm)
--- NOTE | 2021-08-10 16:31 | W.ED.FALL ---
Documented by User: JANIYA Samano 08/11/21 07:14 HPI - Fall General: Chief Complaint: Fall Stated Complaint: LEFT WRIST PAIN S/ P FALL Time Seen by Provider: 08/10/21 16:31 History of Present Illness: HPI Narrative: Patient is a 56-year-old male who comes to the ED via EMS with left wrist injury. Patient admits to being intoxicated after drinking a pint of liquor and says he fell out of his chair at home. His head hit the floor but he denies any loss of consciousness, neck pain or headache. Patient is on the blood thinner Eliquis. His main complaint is left wrist pain. He rates the pain a 8 out of 10. Any movement of wrist causes worsening pain. EMS said patient did have visible deformity when they arrived on the scene. They then put patient in a splint and gave him some Zofran. Patient did not want anything for pain. He denies any other symptoms. Associated symptoms-after fall: Denies abdominal pain, chest pain, headache(s), hematuria or neck pain Review of Systems Const: Denies: fever(s), chills or fatigue Eyes: Denies: change in vision or eye discomfort ENMT: Denies: throat pain, odynophagia, nasal discharge or nasal congestion Card: Denies: chest pain, palpitations, edema, swelling of feet/ankles, dyspnea on exertion or orthopnea Resp: Denies: dyspnea, productive cough or non-productive cough GI: Denies: abdominal pain, nausea, vomiting, diarrhea, constipation or hematochezia : Denies: flank pain, difficulty urinating, dysuria or hematuria Musc: Reports: extremity pain (left wrist), limited range of motion (left wrist) and deformity (Distal Left wrist deformity per EMS); Denies: neck pain, back pain or extremity swelling Skin/Breast: Denies: rash or new lesions Neuro: Denies: headache(s), numbness in extremities or weakness in extremities PFS ED PFSH: Medical History Anxiety Atrial fibrillation Congestive heart failure GERD (gastroesophageal reflux disease) Hypertension Family History Father Cancer Social History Smoking and tobacco status: former smoker Physical Exam Const: COMMON NORMALS: no acute distress, patient oriented x3 and alert GENERAL APPEARANCE: cooperative, comfortable and odor of alcohol detected HENMT: COMMON NORMALS: normocephalic HEAD & SCALP: normocephalic MOUTH: Normal oral and palatal mucosa present THROAT: posterior oropharynx normal and uvula midline Eye: COMMON NORMALS: Equal, round and reactive pupils present and EOMs intact bilaterally PUPIL: Yes Equal, round and reactive pupils present Neck/C-Spine: COMMON NORMALS: supple GENERAL: Yes normal visual inspection CERVICAL SPINE: No Cervical spine tenderness, Yes Paracervical muscle tenderness left and Yes Trapezius muscle tenderness left Resp: COMMON NORMALS: normal respiratory effort, No retractions, No use of accessory muscles and clear to auscultation bilaterally AUSCULTATION: clear to auscultation bilaterally Cardio: COMMON NORMALS: regular rate, regular rhythm, S1 normal heart sound present, S2 normal heart sound present, No gallops present (Cardio), No clicks present (Cardio), No murmurs present (Cardio) and Peripheral pulses 2+ throughout RATE: regular rate RHYTHM: regular rhythm HEART SOUNDS: S1 normal heart sound present and S2 normal heart sound present PERIPHERAL PULSES: Peripheral pulses 2+ throughout GI: COMMON NORMALS: Normal to inspection, nondistended, normoactive bowel sounds present, Soft to palpation, non-tender and no masses PALPATION: Yes Soft to palpation : COMMON NORMALS: Yes no CVA tenderness BLADDER/KIDNEY EXAM: Yes no CVA tenderness Back/Pelvis: COMMON NORMALS: no CVA tenderness Extremity: GENERAL: Yes normal exam except as noted LEFT UPPER EXTREMITY: Yes wrist Left wrist: Yes inspection (pt in splint from EMS- no visible deformity or swelling noted), Yes palpation (tenderness over radial aspect of wrist), Yes ROM (limited due to pain) and Yes neurovascular exam (intact) Neuro: COMMON NORMALS: patient oriented x3, CN's II-XII intact bilaterally, moves all extremities, no focal motor deficits and no sensory deficits noted SENSORIUM/ORIENTATION: Yes alert Skin: GENERAL SKIN EXAM: dry skin Course Vital Signs: Vital signs: Vital Signs Temperature 97.3 F L 08/10/21 16:44 Pulse Rate 60 08/10/21 19:51 Respiratory Rate 18 08/10/21 19:51 Blood Pressure 134/60 08/10/21 19:51 Pulse Oximetry 93 08/10/21 19:51 MDM - Fall MDM Narrative: Medical decision making narrative: I performed the initial history physical exam and imaging ordering. I then handed patient off to Lindsay KATHLEEN and told him about patient case and that the image reports are pending and once those reports are back he can make discharge plans.Catalino Alejandro PA-C. Patient came in today intoxicated with alcohol consumption. Patient had fallen at home and there was concern for injury of the left wrist. Patient presented with from EMS with a Manny splint in place. Pulses and sensation was intact distally. Patient was cooperative and aroused appropriately and answer questions appropriately. Reviewed exam of patient's wrist being positive for a nondisplaced fracture. Recommended patient follow-up with orthopedist for further evaluation and treatment. Patient was agreeable to plan. Imaging Data^: Xray Ortho: Attestation: I personally reviewed and interpreted this imaging study as follows: Radiologist's impression: [address] [address] XRay Report Signed Patient: Derrek Crowe Unit #: [id number] : 1965 Age/Sex: 56 / M ADM Date: 08/10/21 Loc: ER Room/Bed: Attending Dr: Ordering Provider/Ordering MD: Catalino Alejandro Date of Service: 08/10/21 Procedure(s): XR wrist LT min 3V* [id number] Accession Number(s): [id number] Report Number: [id number] PROCEDURE INFORMATION: Exam: XR Left Wrist Exam date and time: 08/10/2021 4:25 PM Age: 56 years old Clinical indication: Injury or trauma; Fall; Blunt trauma (contusions or hematomas); Wrist; Left; Additional info: Wrist pain after fall TECHNIQUE: Imaging protocol: XR Left wrist. Views: 3 or more views. COMPARISON: CR XR wrist LT min 3V* [id number] 08/06/2021 12:37 PM FINDINGS: Bones/joints: I now see oblique hairline incomplete intra-articular fracture through the distal radial metaphysis. Image 1002. Soft tissues: Continued soft tissue swelling over the wrist. XR/XR wrist LT min 3V* [id number] IMPRESSION: 1. I now see oblique hairline incomplete intra-articular fracture through the distal radial metaphysis. Image 1002. 2. Continued soft tissue swelling over the wrist. Radiation Dose CTDIVOL = (mGy): DLP = (mGy-cm) Dictated By: Andi Donnelly MD Signed By: Andi Donnelly MD Signed Date/Time: 08/10/211802 DD/ 1625 [employer] [address] [place] [address]. [place] [address] XRay Report Signed Patient: Derrek Crowe Unit #: [id number] : 1965 Age/Sex: 56 / M ADM Date: 08/10/21 Loc: ER Room/Bed: Attending Dr: Ordering Provider/Ordering MD: Catalino Alejandro Date of Service: 08/10/21 Procedure(s): XR forearm LT 2V 03173 Accession Number(s): [id number] Report Number: [id number] PROCEDURE INFORMATION: Exam: XR Left Forearm Exam date and time: 08/10/2021 4:40 PM Age: 56 years old Clinical indication: Injury or trauma; Fall; Blunt trauma (contusions or hematomas); Arm, lower; Left; Additional info: Fall with forearm and wrist injury TECHNIQUE: Imaging protocol: XR Left forearm. Views: 2 views. COMPARISON: CR XR forearm LT 2V [id number] 08/06/2021 12:34 PM FINDINGS: Bones/joints: Hairline incomplete fracture noted on oblique wrist images is not visible on today's forearm images. Soft tissues: Continued mild soft tissue swelling over the wrist. XR/XR forearm LT 2V [id number] IMPRESSION: 1. Continued mild soft tissue swelling over the wrist. 2. Hairline incomplete fracture noted on oblique wrist images is not visible on today's forearm images. Radiation Dose CTDIVOL = (mGy): DLP = (mGy-cm) Dictated By: Andi Donnelly MD Signed By: Andi Donnelly MD Signed Date/Time: 08/10/211803 DD/ 1640 CT Head: Attestation: I personally reviewed and interpreted this imaging study as follows: Radiologist's impression: [employer] [facility] [place] [address] CT Scan Report Signed Patient: Derrek Crowe Unit #: [id number] : 1965 Age/Sex: 56 / M ADM Date: 08/10/21 Loc: ER Room/Bed: Attending Dr: Ordering Provider/Ordering MD: Catalino Alejandro Date of Service: 08/10/21 Procedure(s): CT head wo con* [id number] Accession Number(s): [id number] Report Number: [id number] PROCEDURE INFORMATION: Exam: CT Head Without Contrast Exam date and time: 08/10/2021 4:28 PM Age: 56 years old Clinical indication: Injury or trauma; Fall; Blunt trauma (contusions or hematomas); Additional info: Fall, hit head, al intoxication TECHNIQUE: Imaging protocol: Computed tomography of the head without contrast. Axial, coronal and sagittal reformatted images were created and reviewed. Radiation optimization: All CT scans at this facility use at least one of these dose optimization techniques: automated exposure control; mA and/or kV adjustment per patient size (includes targeted exams where dose is matched to clinical indication); or iterative reconstruction. COMPARISON: CT head wo con* [id number] 08/06/2021 1:01 PM RADIATION DOSE METRICS: Total DLP (mGy-cm): 875.63 FINDINGS: Brain: Patchy and confluent areas of hypoattenuation in the periventricular and subcortical white matter, consistent with chronic small vessel ischemic disease. No CT evidence of acute intracranial hemorrhage or acute territorial infarction. No significant mass effect or midline shift. Basal cisterns patent. Cerebral ventricles: Prominence of the cortical sulci, cisterns and ventricular system, consistent with cerebral and cerebellar volume loss. Paranasal sinuses: Mild ethmoid and maxillary sinus mucosal thickening. No fluid levels. Mastoid air cells: Grossly unremarkable. Bones/joints: No acute osseous abnormality. Soft tissues: Grossly unremarkable. CT/CT head wo con* [id number] [address]ION: 1. No CT evidence of acute intracranial pathology. 2. Additional findings, as above. Radiation Dose CTDIVOL = (mGy): DLP = 875.63 (mGy-cm) Dictated By: Andi Mims MD Signed By: Andi Mims MD Signed Date/Time: 08/10/211817 DD/ [address]: Attestation: I personally reviewed and interpreted this imaging study as follows: Radiologist's impression: [employer] [place] [address] CT Scan Report Signed Patient: Derrek Crowe Unit #: [id number] : 1965 Age/Sex: 56 / M ADM Date: 08/10/21 Loc: ER Room/Bed: Attending Dr: Ordering Provider/Ordering MD: Catalino Alejandro Date of Service: 08/10/21 Procedure(s): CT cervical spin wo con* [id number] Accession Number(s): [id number] Report Number: [id number] PROCEDURE INFORMATION: Exam: CT Cervical Spine Without Contrast Exam date and time: 08/10/2021 4:28 PM Age: 56 years old Clinical indication: Injury or trauma; Fall; Blunt trauma; Additional info: Fall, hit head, alcohol intoxication TECHNIQUE: Imaging protocol: Computed tomography images of the cervical spine without contrast. Axial, coronal and sagittal reformatted images were created and reviewed. Radiation optimization: All CT scans at this facility use at least one of these dose optimization techniques: automated exposure control; mA and/or kV adjustment per patient size (includes targeted exams where dose is matched to clinical indication); or iterative reconstruction. COMPARISON: CT cervical spin wo con* [id number] 08/06/2021 1:03 PM RADIATION DOSE METRICS: Total DLP (mGy-cm): 958.79 FINDINGS: Bones/joints: Osteopenia. Reversal of the normal cervical lordosis. No CT evidence of acute fracture, dislocation or subluxation. Minimal retrolisthesis of C3 on C4, C4 on C5 and C5 on C6. Alignment otherwise anatomic. Mild levoscoliosis. Vertebral body heights maintained. Discs/Spinal canal/Neural foramina: Mild multilevel degenerative changes, characterized by disc space narrowing, osteophytosis and uncovertebral and facet joint hypertrophy. Mild multilevel spinal canal and neural foraminal narrowing. Lungs: Grossly unremarkable. Soft tissues: Grossly unremarkable. CT/CT cervical spin wo con* [id number] IMPRESSION: 1. No CT evidence of acute cervical spine traumatic injury. 2. Additional findings, as above. Radiation Dose CTDIVOL = (mGy): DLP = 958.79 (mGy-cm) Dictated By: Andi Mims MD Signed By: Andi Mims MD Signed Date/Time: 08/10/211821 DD/ 27 Discharge Plan Discharge Patient Disposition: Home Clinical Impression: Nondisplaced fracture of distal end of radius Alcohol intoxication Qualifiers: Complication of substance-induced condition: uncomplicated Qualified Code(s): F10.920 - Alcohol use, unspecified with intoxication, uncomplicated Condition: Stable Prescriptions: No Action spironolactone 25 mg tablet 12.5 mg PO DAILY Qty: 30 RF: 3 folic acid 1 mg tablet 1 mg PO DAILY Qty: 30 RF: 3 lisinopril 2.5 mg tablet 2.5 mg PO DAILY Qty: 30 RF: 3 omeprazole 20 mg capsule,delayed release(DR/EC) 20 mg PO DAILY Qty: 30 RF: 3 Eliquis 5 mg tablet 5 mg PO BID Qty: 60 RF: 3 furosemide 40 mg tablet 40 mg PO DAILY Qty: 30 RF: 3 metoprolol tartrate 50 mg tablet See Rx Instructions .ROUTE .COMPLEX Qty: 30 RF: 1 naltrexone 50 mg tablet 50 mg PO DAILY Qty: 90 RF: 0 digoxin 250 mcg (0.25 mg) tablet See Rx Instructions .ROUTE .COMPLEX Qty: 30 RF: 0 citalopram 40 mg tablet See Rx Instructions .ROUTE .COMPLEX Qty: 30 RF: 0 spironolactone 12.5 mg PO DAILY RF: 0 Discharge Orders: Discharge ED (Routine); Ordered 08/10/21 Ordered By: Nicola Montoya Discharge Diet: Usual diet Discharge Activity: Increase activity as tolerated Patient Instructions: Wrist Fracture in Adults (ED), Opioid Safety Activity Restrictions/Additional Instructions: Home and rest. Continue with routine medications as directed. Drink plenty of water. Decrease alcohol consumption. Drink no more than 2 drinks a day. You will need to follow-up with orthopedist for further treatment of fracture in the wrist. Keep splint clean and dry. Case management will contact you regarding orthopedic follow-up appointment. Follow-up with primary care as needed. Return to the ER for new concerns. Sign Out Sign Out Data: Patient Sign Out occurred on 08/10/21 at 17:05. Patient's care was discussed, and care was transferred from to Nicola Montoya. Post-Handoff Eval: Patient came in today intoxicated with alcohol consumption. Patient had fallen at home and there was concern for injury of the left wrist. Patient presented with from EMS with a Manny splint in place. Pulses and sensation was intact distally. Patient was cooperative and aroused appropriately and answer questions appropriately. Reviewed exam of patient's wrist being positive for a nondisplaced fracture. Recommended patient follow-up with orthopedist for further evaluation and treatment. Patient was agreeable to plan. Coding Level of Care Code ED Telephone Order Supervisor for Chg Fwd Exam Comprehensive Documented by User: DANISH Christian 08/10/21 19:23 HPI - Fall General: Chief Complaint: Fall Stated Complaint: LEFT WRIST PAIN S/ P FALL Time Seen by Provider: 08/10/21 16:31 PFSH ED PFSH: Medical History Anxiety Atrial fibrillation Congestive heart failure GERD (gastroesophageal reflux disease) Hypertension Family History Father Cancer Social History Smoking and tobacco status: former smoker Course Vital Signs: Vital signs: Vital Signs Temperature 97.3 F L 08/10/21 16:44 Pulse Rate 60 08/10/21 19:51 Respiratory Rate 18 08/10/21 19:51 Blood Pressure 134/60 08/10/21 19:51 Pulse Oximetry 93 08/10/21 19:51 Discharge Plan Discharge Patient Disposition: Home Clinical Impression: Nondisplaced fracture of distal end of radius Alcohol intoxication Qualifiers: Complication of substance-induced condition: uncomplicated Qualified Code(s): F10.920 - Alcohol use, unspecified with intoxication, uncomplicated Condition: Stable Prescriptions: No Action spironolactone 25 mg tablet 12.5 mg PO DAILY Qty: 30 RF: 3 folic acid 1 mg tablet 1 mg PO DAILY Qty: 30 RF: 3 lisinopril 2.5 mg tablet 2.5 mg PO DAILY Qty: 30 RF: 3 omeprazole 20 mg capsule,delayed release(DR/EC) 20 mg PO DAILY Qty: 30 RF: 3 Eliquis 5 mg tablet 5 mg PO BID Qty: 60 RF: 3 furosemide 40 mg tablet 40 mg PO DAILY Qty: 30 RF: 3 metoprolol tartrate 50 mg tablet See Rx Instructions .ROUTE .COMPLEX Qty: 30 RF: 1 naltrexone 50 mg tablet 50 mg PO DAILY Qty: 90 RF: 0 digoxin 250 mcg (0.25 mg) tablet See Rx Instructions .ROUTE .COMPLEX Qty: 30 RF: 0 citalopram 40 mg tablet See Rx Instructions .ROUTE .COMPLEX Qty: 30 RF: 0 spironolactone 12.5 mg PO DAILY RF: 0 Discharge Orders: Discharge ED (Routine); Ordered 08/10/21 Ordered By: Nicola Montoya Discharge Diet: Usual diet Discharge Activity: Increase activity as tolerated Patient Instructions: Wrist Fracture in Adults (ED), Opioid Safety Activity Restrictions/Additional Instructions: Home and rest. Continue with routine medications as directed. Drink plenty of water. Decrease alcohol consumption. Drink no more than 2 drinks a day. You will need to follow-up with orthopedist for further treatment of fracture in the wrist. Keep splint clean and dry. Case management will contact you regarding orthopedic follow-up appointment. Follow-up with primary care as needed. Return to the ER for new concerns. Sign Out Sign Out Data: Patient Sign Out occurred on 08/10/21 at 17:05. Patient's care was discussed, and care was transferred from to Nicola Montoya. Post-Handoff Eval: Patient came in today intoxicated with alcohol consumption. Patient had fallen at home and there was concern for injury of the left wrist. Patient presented with from EMS with a Manny splint in place. Pulses and sensation was intact distally. Patient was cooperative and aroused appropriately and answer questions appropriately. Reviewed exam of patient's wrist being positive for a nondisplaced fracture. Recommended patient follow-up with orthopedist for further evaluation and treatment. Patient was agreeable to plan. Coding Level of Care Code ED Telephone Order Supervisor for Rajinderg Fwd Exam Comprehensive
--- NOTE | 2021-08-10 16:40 | XRR_ITS ---
PROCEDURE INFORMATION: Exam: XR Left Forearm Exam date and time: 08/10/2021 4:40 PM Age: 56 years old Clinical indication: Injury or trauma; Fall; Blunt trauma (contusions or hematomas); Arm, lower; Left; Additional info: Fall with forearm and wrist injury TECHNIQUE: Imaging protocol: XR Left forearm. Views: 2 views. COMPARISON: CR XR forearm LT 2V [id number] 08/06/2021 12:34 PM FINDINGS: Bones/joints: Hairline incomplete fracture noted on oblique wrist images is not visible on today's forearm images. Soft tissues: Continued mild soft tissue swelling over the wrist. XR/XR forearm LT 2V [id number] IMPRESSION: 1. Continued mild soft tissue swelling over the wrist. 2. Hairline incomplete fracture noted on oblique wrist images is not visible on today's forearm images. Radiation Dose CTDIVOL = (mGy): DLP = (mGy-cm)
[2021-08-10 16:44] VITALS: BP 130/81; PULSE 120; RESP 17; TEMP 36.3; O2SAT 98; BMI 32.1
[2021-08-10 19:51] VITALS: BP 134/60; PULSE 60; RESP 18; O2SAT 93
== END 2021-08-10 19:53 | disposition home or self-care (01) ==
PROVIDERS: Emergency Provider Nurse Practitioner Family
DX: S52.502A Unspecified fracture of the lower end of left radius, initial encounter for closed fracture (principal); F10.920 Alcohol use, unspecified with intoxication, uncomplicated; Z79.01 Long term (current) use of anticoagulants; I11.0 Hypertensive heart disease with heart failure; I50.9 Heart failure, unspecified; Z87.891 Personal history of nicotine dependence; W07.XXXA Fall from chair, initial encounter
CPT/HCPCS: 29125; 70450; 72125; 73090; 73110; 99283

== ENCOUNTER 2022-02-06 13:02 | Emergency (ER) | payer MEDICARE, MEDICAID, SELFPAY ==
[2022-02-06 13:05] VITALS: BP 92/56; PULSE 106; RESP 14; TEMP 36.7; O2SAT 93
--- NOTE | 2022-02-06 13:22 | ED_ITS ---
HPI - General Adult General: Chief complaint: General Medical Stated complaint: AGGRESIVE, ETOH Time Seen by Provider: 02/06/22 13:08 Source: patient and EMS Mode of arrival: EMS Limitations: no limitations History of Present Illness: This patient was transported by EMS. Apparently patient lives with his mother and allegedly his mother stated that he was a little more cantankerous and uncooperative than usual today. EMS arrived on scene and he was less then cooperative with them and acted out and did not want to be transported but eventually he was transported to this facility. He does acknowledge that he has drank alcohol this morning and that is not an unusual occurrence for him. He states he has been having some vomiting over the past couple of 3 days. He states he has had no abdominal pain, no diarrhea. He states his mother who with whom he lives has had diarrhea but no vomiting. He denies any fevers or chills. He states he has not taken some of his usual medications today. He denies any other constitutional complaints. Associated symptoms: Reports vomiting; Deny chest pain, dyspnea, headache(s), rash, palpitations or syncope Review of Systems Const: Denies: fever(s), chills, body aches, change in appetite or change in weight Eyes: Denies: change in vision or blurry vision ENMT: Denies: throat pain or odynophagia Card: Denies: chest pain, palpitations, irregular heart rhythm, syncope or pre-syncope Resp: Denies: dyspnea, productive cough or non-productive cough GI: Reports: vomiting; Denies: abdominal pain, hematemesis, coffee ground emesis or change in bowel habits : Denies: flank pain, difficulty urinating, dysuria or urinary frequency Musc: Denies: neck pain, back pain, extremity pain or extremity swelling Skin/Breast: Denies: rash, pruritus or erythema Neuro: Denies: headache(s), numbness in extremities or weakness in extremities Psych: Reports: anxiety, mood swings and irritability; Denies: paranoia, visual hallucinations, auditory hallucinations, suicidal ideation or homicidal ideation Endo: Denies: polyuria, polydipsia or tired all the time Tano/Lymph: Denies: easy bruising or easy bleeding PFS ED PFSH: Medical History Anxiety Atrial fibrillation Congestive heart failure GERD (gastroesophageal reflux disease) Hypertension Family History Father Cancer Social History Smoking and tobacco status: former smoker Physical Exam Narrative: EXAM NARRATIVE: Patient is alert and awake and cooperative. He does answer questions in a goal- directed fashion. He initially was closed and somewhat reluctant to give much in the way of answers but as we spoke more he became more open and responsive to questioning. Const: COMMON NORMALS: no acute distress, average body habitus, patient oriented x3, no limitations and alert HENMT: COMMON NORMALS: normocephalic, atraumatic, Normal external nose present, moist oral mucous membranes and oropharynx normal HEAD & SCALP: normocephalic and atraumatic FACE & SINUS: abrasion; no sinus tenderness NOSE: Normal external nose present Eye: COMMON NORMALS: Equal, round and reactive pupils present, EOMs intact bilaterally, conjunctivae normal and no scleral icterus CONJUNCTIVA: Yes conjunctivae normal PUPIL: Yes Equal, round and reactive pupils present Neck/C-Spine: COMMON NORMALS: full ROM, no lymphadenopathy and supple Chest: COMMONS NORMALS: normal inspection of the chest and normal palpation of entire chest wall Resp: COMMON NORMALS: normal respiratory effort, No retractions and No use of accessory muscles EFFORT & INSPECTION: Yes able to speak in complete sentences Cardio: COMMON NORMALS: regular rate, regular rhythm, No murmurs present (Cardio) and Peripheral pulses 2+ throughout RATE: regular rate RHYTHM: regular rhythm PERIPHERAL PULSES: Peripheral pulses 2+ throughout GI: COMMON NORMALS: Normal to inspection, nondistended, normoactive bowel sounds present, Soft to palpation, non-tender and No hepatosplenomegaly present PALPATION: Yes Soft to palpation and Yes No hepatosplenomegaly present : COMMON NORMALS: Yes no CVA tenderness BLADDER/KIDNEY EXAM: Yes no CVA tenderness Back/Pelvis: COMMON NORMALS: no CVA tenderness, thoracic and lumbar spine normal to inspection, no thoracic nor lumbar tenderness, thoraco-lumbar ROM normal and straight leg raise negative bilaterally Extremity: COMMON NORMALS: normal to inspection, full ROM, capillary refill normal, no calf tenderness and no pedal edema Neuro: COMMON NORMALS: patient oriented x3, moves all extremities, no focal motor deficits and no sensory deficits noted SENSORIUM/ORIENTATION: Yes alert SPEECH: speech normal Psych: COMMON NORMALS: mental status grossly normal, cooperative, normal affect, speech normal, activity/motor behavior normal, denies hallucinations, denies homicidal ideation and denies suicidal ideation ATTITUDE: Yes evasive (initally) SPEECH: Yes normal speech MEMORY/COGNITION: Yes memory grossly intact and Yes cognition grossly intact Skin: COMMON NORMALS: turgor normal, no jaundice and no petechiae GENERAL SKIN EXAM: turgor normal Course Reevaluation(s): Reevaluation #1: Patient remains cooperative alert and no new focal findings on reexamination. He is receiving IV fluids. Laboratories are consistent with prior laboratories. Patient is aware of his chronic atrial fibrillation and relates to me that he has been taking the medications as prescribed. Reevaluate and make a dis position after reevaluation. Time: 14:37 Reevaluation #2: Patient has received fluids. He desires to go home. At this point I do not have any evidence of an ongoing emergency medical condition. There is some question raised by him whether he has been taking his medications but he insists that he has been doing so as prescribed. Has a history of chronic atrial fibrillation and reportedly is taking metoprolol as well as his apixaban for that condition. He does have a history of alcohol use and abuse and his MCV sup ports that. He does not display any findings that suggest altered mental status or anything else that would necessitate further emergency department evaluation. He is competent to make decisions and does not appear to be under the influence will be discharged home with family. Time: 15:40 Vital Signs: Vital signs: Vital Signs Temperature 98.1 F 02/06/22 13:05 Pulse Rate 96 02/06/22 15:22 Respiratory Rate 20 H 02/06/22 15:22 Blood Pressure 93/68 02/06/22 15:22 Pulse Oximetry 93 02/06/22 15:22 [facility] - General Adult Medical Decision Making Patient with a history of chronic atrial fibrillation who was transported by EMS to the emergency department from his home in which she shares with his mother. Medical screening evaluation in the emergency department reveals him to be c ooperative, alert, intact decision-making capacity. He does have a history of chronic atrial fibrillation and that is displayed in his EKG and cardiac monitoring here. There is no evidence of ongoing symptoms and his clinical exam is reassuring. His screening laboratories are also reassuring he does have an elevation in his MCV consistent with his alcohol use. Currently clinically stable to be discharged back with family with return precautions. Medical Records I reviewed the patient's medical records. Lab Data I reviewed the patient's lab results. : 02/06/22 13:57 02/06/22 13:57 Laboratory Results WBC 9.2 10^3/uL (4.0-10.0) 02/06/22 13:57 RBC 4.70 10^6/uL (4.1-5.3) 02/06/22 13:57 Hgb 16.2 g/dL (11.7-16.6) 02/06/22 13:57 Hct 47.5 % (42.0-52.0) 02/06/22 13:57 MCV 101.1 fl (80-94) H 02/06/22 13:57 MCH 34.5 pg (28.0-34.0) H 02/06/22 13:57 MCHC 34.1 g/dL (30.0-36.0) 02/06/22 13:57 RDW 14.0 % (12.1-15.1) 02/06/22 13:57 Plt Count 185 10^3/cmm (130-400) 02/06/22 13:57 MPV 11.7 fL (7.4-10.4) H 02/06/22 13:57 Neut % (Auto) 63.8 % 02/06/22 13:57 Lymph % (Auto) 21.5 % 02/06/22 13:57 Andrew % (Auto) 11.7 % 02/06/22 13:57 Eos % (Auto) 2.3 % 02/06/22 13:57 Baso % (Auto) 0.5 % 02/06/22 13:57 Neut # (Auto) 5.86 10^3/uL (1.8-7.7) 02/06/22 13:57 Lymph # (Auto) 2.0 10^3/uL (0.8-4.8) 02/06/22 13:57 Andrew # (Auto) 1.1 10^3/uL (0.2-0.9) H 02/06/22 13:57 Eos # (Auto) 0.2 10^3/uL (0.0-0.8) 02/06/22 13:57 Baso # (Auto) 0.1 10^3/uL (0.0-0.1) 02/06/22 13:57 Nucleated RBC % (auto) 0 % 02/06/22 13:57 Nucleated RBCs # 0.0 /100WBC 02/06/22 13:57 Sodium 139 mmol/L (136-145) 02/06/22 13:57 Potassium 3.8 mmol/L (3.5-5.1) 02/06/22 13:57 Chloride 102 mmol/L (98-107) 02/06/22 13:57 Carbon Dioxide 22 mmol/L (22-29) 02/06/22 13:57 Anion Gap 18.8 (5-19) 02/06/22 13:57 BUN 14 mg/dL (6-20) 02/06/22 13:57 Creatinine 0.7 mg/dL (0.7-1.2) 02/06/22 13:57 GFR Calculation 115.8 mL/min (90-130) 02/06/22 13:57 Glucose 97 mg/dL (65-115) 02/06/22 13:57 Calculated Osmolality 288 mOsm/kg (285-295) 02/06/22 13:57 Calcium 9.9 mg/dL (8.5-10.5) 02/06/22 13:57 Total Bilirubin 0.6 mg/dL (0.15-1.2) 02/06/22 13:57 AST 59 U/L (0-40) H 02/06/22 13:57 ALT 59 U/L (0-41) H 02/06/22 13:57 Alkaline Phosphatase 76 IU/L (40-130) 02/06/22 13:57 Total Protein 8.1 g/dL (6.6-8.7) 02/06/22 13:57 Albumin 4.5 g/dL (3.5-5.2) 02/06/22 13:57 Globulin 3.6 g/dL (1.3-4.6) 02/06/22 13:57 EKG Data EKG 1: EKG interpretation time: 14:54 Interpretation: Contemporaneous EKG review reveals atrial fibrillation with a borderline ventricular rate of 103 bpm. Normal QTC and QRS duration. Normal axis. No acute ST-T wave changes noted. Essentially unchanged rhythm from prior EKGs. Discharge Plan Discharge Patient Disposition: Home Clinical Impression: Atrial fibrillation Qualifiers: Atrial fibrillation type: longstanding persistent Qualified Code(s): I48.11 - Longstanding persistent atrial fibrillation Condition: Stable Prescriptions: No Action spironolactone 25 mg tablet 12.5 mg PO DAILY Qty: 30 3RF folic acid 1 mg tablet 1 mg PO DAILY Qty: 30 3RF lisinopril 2.5 mg tablet 2.5 mg PO DAILY Qty: 30 3RF omeprazole 20 mg capsule,delayed release(DR/EC) 20 mg PO DAILY Qty: 30 3RF Eliquis 5 mg tablet 5 mg PO BID Qty: 60 3RF furosemide 40 mg tablet 40 mg PO DAILY Qty: 30 3RF naltrexone 50 mg tablet 50 mg PO DAILY Qty: 90 0RF gabapentin 100 mg Capsule 100 mg PO QPM 0RF citalopram 40 mg tablet 40 mg PO DAILY 0RF digoxin 250 mcg (0.25 mg) tablet 250 mcg PO DAILY 0RF metoprolol tartrate 50 mg tablet 50 mg PO BID 0RF Discharge Orders: Discharge ED (Routine); Ordered 02/06/22 Ordered By: Nasir Contreras Discharge Diet: Usual diet Discharge Activity: Resume usual activity Patient Instructions: Opioid Safety Activity Restrictions/Additional Instructions: Do not drink alcohol. Continue all your prescribed medications as they are prescribed. Should you develop any new or concerning symptoms return to this or the nearest emergency department otherwise follow-up with your regular physician as scheduled. Coding Level of Care Code ED Felt Hat Mellowing Machine Operator for Angelica Pollard Exam Comprehensive
--- NOTE | 2022-02-06 13:57 | PC.PHAR ---
PT UNABLE TO VERIFY. PT ARRIVED WITH A HAND WRITTEN LIST OF HOME MEDICATIONS IN THE ER. EXTERNAL MED LIST SHOWED LAST FILLED ON ALL MEDICATIONS 2020. CALLED [facility] [place] AND THEY HAVE NOT FILLED FOR PATIENT SINCE 2020. TALKED TO PT HOME NURSE JOSE ALBERTO FROM [facility], NURSE STATES PATIENT ONLY TAKES HIS MEDS MAYBE ONCE A MONTH IF THAT OFTEN.
[2022-02-06 14:07] LABS: Basophils # 0.1 10^3/uL (0.0-0.1); Basophils % 0.5 %; Eosinophils # 0.2 10^3/uL (0.0-0.8); Eosinophils % 2.3 %; Hematocrit 47.5 % (42.0-52.0); Hemoglobin 16.2 g/dL (11.7-16.6); Lymphocytes % 21.5 %; Mean Corpuscular HGB Conc 34.1 g/dL (30.0-36.0); Mean Corpuscular Hemoglobin 34.5 pg (28.0-34.0); Mean Corpuscular Volume 101.1 fl (80-94); Mean Platelet Volume 11.7 fL (7.4-10.4); Monocytes # 1.1 10^3/uL (0.2-0.9); Monocytes % 11.7 %; Neutrophils # 5.86 10^3/uL (1.8-7.7); Neutrophils % 63.8 %; Nucleated Red Blood Cells % 0 %; Platelet Count 185 10^3/cmm (130-400); White Blood Count 9.2 10^3/uL (4.0-10.0)
[2022-02-06 14:20] LABS: Alanine Aminotransferase 59 U/L (0-41); Albumin Level 4.5 g/dL (3.5-5.2); Alkaline Phosphatase 76 IU/L (40-130); Aspartate Amino Transferase 59 U/L (0-40); Blood Urea Nitrogen 14 mg/dL (6-20); Calcium 9.9 mg/dL (8.5-10.5); Carbon Dioxide 22 mmol/L (22-29); Chloride 102 mmol/L (98-107); Globulin 3.6 g/dL (1.3-4.6); Glomerular Filtration Rate 115.8 mL/min (90-130); Glucose 97 mg/dL (65-115); Osmolality Calculated 288 mOsm/kg (285-295); Sodium 139 mmol/L (136-145); Total Bilirubin 0.6 mg/dL (0.15-1.2); Total Protein 8.1 g/dL (6.6-8.7)
[2022-02-06 14:27] LABS: Anion Gap 18.8 (5-19); Potassium 3.8 mmol/L (3.5-5.1)
--- NOTE | 2022-02-06 14:35 | ECG_ITS ---
[facility] Test Date: 2022-02-06 Pat Name: Derrek Crowe Department: Room: Gender: Male Grocery Clerk: : [id number] Requested By: Nasir Contreras Order Number: [id number] Estrada MD: Derik Morgan M.D. Measurements Intervals [place] Rate: 103 P: [place]: QRS: 13 QRSD: 113 T: 7 QT: 373 QTc: 489 Interpretive Statements ATRIAL FIBRILLATION WITH RAPID VENTRICULAR RESPONSE MODERATE INTRAVENTRICULAR CONDUCTION DELAY [110+ ms QRS DURATION] ABNORMAL RHYTHM ECG Compared to ECG 08/06/2021 12:53:47 Intraventricular conduction delay now present Electronically Signed On 02-07-2022 0:20:51 CDT by Derik Morgan M.D. [id number]
--- NOTE | 2022-02-06 15:20 | PC.NURSE ---
Pt placed on continuous cardiac, BP, and SpO2 monitoring.
[2022-02-06 15:22] VITALS: BP 93/68; PULSE 96; RESP 20; O2SAT 93
--- NOTE | 2022-02-06 15:49 | PC.NURSE ---
came into patient room he was disconnected from everything and had taken out his iv, pt was sitting on the side of the bed pt refused a last set of vital signs
--- NOTE | 2022-02-06 15:50 | PC.NURSE ---
spoke with patients mother and brother- brother will pick him up this evening - may be as late as 10PM
== END 2022-02-06 15:52 | disposition home or self-care (01) ==
PROVIDERS: Emergency Provider Emergency Medicine
DX: I48.11 Longstanding persistent atrial fibrillation (principal); Z79.01 Long term (current) use of anticoagulants; Z72.89 Other problems related to lifestyle; Z87.891 Personal history of nicotine dependence
CPT/HCPCS: 80053; 85025; 93005; 99283

== ENCOUNTER 2022-04-09 14:26 | Inpatient (IN) | payer MEDICARE, MEDICAID, SELFPAY ==
--- NOTE | 2022-04-09 14:29 | ED_ITS ---
HPI - General Adult General: Chief complaint: Extremity Problem,Nontraumatic Stated complaint: FOOT/LEG PAIN, EDEMA BILATERAL Time Seen by Provider: 04/09/22 14:29 History of Present Illness: Mr. Crowe is a 56-year-old gentleman with history of hypertension, hyperlipidemia, atrial fibrillation, congestive heart failure presents to the emergency department due to leg pain. He reports onset of symptoms approximately 2 weeks ago when he had a fall without preceding symptoms, he believes that he just tripped landing on his buttocks. He was able to ambulate and was not evaluated after this. Since that time he has had continued right knee pain and bilateral ankle pain which is worse with movement and ambulation. He is noted some increased lower extremity edema compared to baseline. Overall course of symptoms has persisted. Moderate intensity. No other specific changes in health, exacerbating, or alleviating factors identified. Onset (ago): week(s) Radiation: extremity Severity: moderate Quality: aching Pain Consistency: constant Exacerbating factors: movement Review of Systems General: Reports: 10 or more systems reviewed and unremarkable except in HPI and below PFSH ED PFSH: Medical History Anxiety Atrial fibrillation Congestive heart failure GERD (gastroesophageal reflux disease) Hypertension Family History Father Cancer Social History Smoking and tobacco status: former smoker Physical Exam Const: COMMON NORMALS: alert GENERAL APPEARANCE: cooperative and well developed HENMT: COMMON NORMALS: normocephalic and atraumatic HEAD & SCALP: normocephalic and atraumatic Eye: COMMON NORMALS: conjunctivae normal CONJUNCTIVA: Yes conjunctivae normal SCLERA: sclerae normal Neck/C-Spine: COMMON NORMALS: supple GENERAL: Yes trachea midline Resp: COMMON NORMALS: normal respiratory effort EFFORT & INSPECTION: Yes able to speak in complete sentences Cardio: COMMON NORMALS: regular rate and regular rhythm RATE: regular rate RHYTHM: regular rhythm GI: COMMON NORMALS: Soft to palpation PALPATION: Yes Soft to palpation and No Tenderness to palpation present (GI) PERCUSSION: normal to percussion Extremity: NARRATIVE EXTREMITY EXAM: Tenderness bilateral medial aspects of ankle. CMS intact. Right knee medial joint line tenderness to palpation. GENERAL: Yes normal exam except as noted and Yes edema (1+ symmetric bilaterally pitting) Neuro: COMMON NORMALS: moves all extremities SENSORIUM/ORIENTATION: Yes alert and No Orientation impaired Psych: COMMON NORMALS: mental status grossly normal and Normal thought process present THOUGHT PROCESS: Normal thought process present Course ED course: - Patient was seen and evaluated by me at bedside - Patient placed on cardiac monitors, IV access obtained - Initial evaluation notable for exam as above. - Labs and xrays personally interpreted by me - analgesia and attempted rate control with metoprolol ordered - Labs notable for no leukocytosis, normal hemoglobin. Metabolic panel without acute derangement to explain symptoms. BNP is mildly elevated. Delta troponin negative. - Imaging notable for mild cardiomegaly without lobar consolidation or pneumothorax on chest x-ray. No other acute bony abnormality identified. - Upon serial reexamination after treatment the patient was mostly improved with repeat doses of metoprolol though overall sustained rate control not achieved - Based on patient history, evaluation, and testing as interpreted the most likely cause of the patient's condition is A. fib with RVR and heart failure exacerbation - The results of ED evaluation were discussed with the patient including plan f or admission due to requirement for level of care not available if discharged to prevent significant worsening/deterioration. - Admitting service was contacted and Dr Rodriguez with the hospitalist service agreed to admit the patient - Patient was admitted without further deterioration or significant events. Note: Click bubbles or prepopulated glasgow in note writing are used for assistance w ith data collection and billing and are inherently more limited than narrative and other text portions of this note. Please use narrative for additional clinical history and defer to narrative/free test for any case of contradictory information. If information appears in only free text or click bubble it should be considered present or absent as reported. Please contact note internal communications writer for clarifications of clinical information or contradictory information. MDM is a brief summary, contradictory or erroneous seeming information should be clarified and full note should be reviewed. Vital Signs: Vital signs: Vital Signs Temperature 98 F 04/12/22 17:03 Pulse Rate 58 L 04/12/22 17:03 Respiratory Rate 17 04/12/22 17:03 Blood Pressure 97/57 04/12/22 17:03 Pulse Oximetry 93 04/12/22 17:03 MDM - General Adult Medical Decision Making 57-year-old gentleman presenting with lower extremity pain found to have to have A. fib with RVR and heart failure exacerbation. Admitted for further management. Medical Records I reviewed the patient's medical records. Lab Data I reviewed the patient's lab results. : 04/09/22 15:00 04/12/22 04:40 Radiology Impressions Ankle X-Ray 04/09/22 14:55 IMPRESSION: No acute fracture. Chest X-Ray 04/09/22 14:55 Impression: Mild cardiomegaly. Knee X-Ray 04/09/22 14:55 Impression: Negative right knee. Laboratory Results WBC 6.8 10^3/uL (4.0-10.0) 04/09/22 15:00 RBC 4.71 10^6/uL (4.1-5.3) 04/09/22 15:00 Hgb 15.8 g/dL (11.7-16.6) 04/09/22 15:00 Hct 45.7 % (42.0-52.0) 04/09/22 15:00 MCV 97.0 fl (80-94) H 04/09/22 15:00 MCH 33.5 pg (28.0-34.0) 04/09/22 15:00 MCHC 34.6 g/dL (30.0-36.0) 04/09/22 15:00 RDW 12.9 % (12.1-15.1) 04/09/22 15:00 Plt Count 275 10^3/cmm (130-400) 04/09/22 15:00 MPV 10.4 fL (7.4-10.4) 04/09/22 15:00 Neut % (Auto) 51.4 % 04/09/22 15:00 Lymph % (Auto) 33.6 % 04/09/22 15:00 [place] % (Auto) 12.8 % 04/09/22 15:00 Eos % (Auto) 0.7 % 04/09/22 15:00 Baso % (Auto) 1.2 % 04/09/22 15:00 Neut # (Auto) 3.51 10^3/uL (1.8-7.7) 04/09/22 15:00 Lymph # (Auto) 2.3 10^3/uL (0.8-4.8) 04/09/22 15:00 [place] # (Auto) 0.9 10^3/uL (0.2-0.9) 04/09/22 15:00 Eos # (Auto) 0.1 10^3/uL (0.0-0.8) 04/09/22 15:00 Baso # (Auto) 0.1 10^3/uL (0.0-0.1) 04/09/22 15:00 Nucleated RBC % (auto) 0 % 04/09/22 15:00 Nucleated RBCs # 0.0 /100WBC 04/09/22 15:00 Sodium 142 mmol/L (136-145) 04/09/22 16:21 Potassium 4.1 mmol/L (3.5-5.1) 04/09/22 16:21 Chloride 102 mmol/L (98-107) 04/09/22 16:21 Carbon Dioxide 25 mmol/L (22-29) 04/09/22 16:21 Anion Gap 19.1 (5-19) H 04/09/22 16:21 BUN 14 mg/dL (6-20) 04/09/22 16:21 Creatinine 0.7 mg/dL (0.7-1.2) 04/09/22 16:21 GFR Calculation 115.8 mL/min (90-130) 04/09/22 16:21 Glucose 93 mg/dL (65-115) 04/09/22 16:21 Calculated Osmolality 294 mOsm/kg (285-295) 04/09/22 16:21 Calcium 8.8 mg/dL (8.5-10.5) 04/09/22 16:21 Magnesium 2.1 mg/dL (1.7-2.3) 04/09/22 16:21 Total Bilirubin 0.7 mg/dL (0.15-1.2) 04/09/22 16:21 AST 32 U/L (0-40) 04/09/22 16:21 ALT 30 U/L (0-41) 04/09/22 16:21 Alkaline Phosphatase 72 IU/L (40-130) 04/09/22 16:21 Troponin T Baseline 16 ng/L (0-15) H 04/09/22 16:21 Troponin T 120 Minute 16.29 ng/L (0-15) H 04/09/22 20:18 Delta Troponin T 0.29 ABS# (0-10) 04/09/22 20:18 Troponin T Hi Sens 6Hr 15.28 ng/L (0-15) H 04/10/22 01:13 Troponin T Hi Sens 6Hr Delta -0.72 ng/L (0-12) L 04/10/22 01:13 NT-Pro-B Natriuret Pep 530 pg/mL (0-125) H 04/09/22 16:21 Total Protein 7.8 g/dL (6.6-8.7) 04/09/22 16:21 Albumin 4.3 g/dL (3.5-5.2) 04/09/22 16:21 Globulin 3.5 g/dL (1.3-4.6) 04/09/22 16:21 TSH 6.20 uIU/mL (0.27-4.20) H 04/10/22 01:13 Ethyl Alcohol 68 mg/dL (0-10) H 04/10/22 01:13 Discharge Plan Discharge Patient Disposition: Placed in Observation Admit Provider: Yadira Rodriguez Clinical Impression: Atrial fibrillation with rapid ventricular response, Acute exacerbation of CHF (congestive heart failure) Discharge Diet: Advance as tolerated Discharge Activity: Increase activity as tolerated Coding Level of Care Code ED Bilingual Account Manager for Chg Fwd Exam Comprehensive
[2022-04-09 14:37] VITALS: BP 132/93; PULSE 123; RESP 16; TEMP 36.9; O2SAT 94; BMI 20.3
--- NOTE | 2022-04-09 14:55 | XRR_ITS ---
PROCEDURE INFORMATION: Exam: XR Left Ankle Exam date and time: 04/09/2022 3:02 PM Age: 56 years old Clinical indication: Injury or trauma; Fall; Blunt trauma; Ankle; Left; Additional info: Fall, pain with ambulation TECHNIQUE: Imaging protocol: Radiologic exam of the Left ankle. Views: 3 or more views. COMPARISON: No relevant prior studies available. FINDINGS: Bones/joints: No acute fracture or dislocation. Soft tissues: Minimal soft tissue swelling without soft tissue gas. Other findings: Three views submitted. XR/XR ankle LT min 3V* [id number] IMPRESSION: No acute fracture.
--- NOTE | 2022-04-09 14:55 | XR_ITS ---
WS: [id number] Portable AP upright chest, 04/09/2022 Clinical Data: edema Comparison: Portable chest, 07/30/2020. Findings: No nodules, masses or effusions are seen. The heart is mildly enlarged. The pulmonary vascu larity is not increased. No pneumonia or pneumothorax is seen. The peripheral right lung calcificatio n remains the same. XR/XR chest 1V portable [id number] Impression: Mild cardiomegaly.
--- NOTE | 2022-04-09 14:55 | XR_ITS ---
WS: [id number] Right knee, 3 views, 04/09/2022 Clinical Data: fall, medial pain Comparison: None. Findings: No fractures or dislocations are seen. The joint spaces are normal. The patella is intact. The soft t issues are unremarkable. There is an old fracture of the proximal right fibula. XR/XR knee RT 3V* [id number] Impression: Negative right knee.
--- NOTE | 2022-04-09 14:55 | XR_ITS ---
WS: [id number] Right ankle, 3 views, 04/09/2022 Clinical Data: fall, pain with ambulation Comparison: None. Findings: No fractures or dislocations are seen. The ankle mortise is normal. The talus and calcaneus are unrem arkable. No soft tissue swelling over the medial or lateral malleolus is seen. XR/XR ankle RT min 3V* [id number] Impression: Negative right ankle.
[2022-04-09 15:06] LABS: Basophils # 0.1 10^3/uL (0.0-0.1); Basophils % 1.2 %; Eosinophils # 0.1 10^3/uL (0.0-0.8); Eosinophils % 0.7 %; Hematocrit 45.7 % (42.0-52.0); Hemoglobin 15.8 g/dL (11.7-16.6); Lymphocytes # 2.3 10^3/uL (0.8-4.8); Lymphocytes % 33.6 %; Mean Corpuscular HGB Conc 34.6 g/dL (30.0-36.0); Mean Corpuscular Hemoglobin 33.5 pg (28.0-34.0); Mean Platelet Volume 10.4 fL (7.4-10.4); Monocytes # 0.9 10^3/uL (0.2-0.9); Monocytes % 12.8 %; Neutrophils # 3.51 10^3/uL (1.8-7.7); Neutrophils % 51.4 %; Nucleated Red Blood Cells % 0 %; Platelet Count 275 10^3/cmm (130-400); Red Blood Count 4.71 10^6/uL (4.1-5.3); Red Cell Distribution Width 12.9 % (12.1-15.1); White Blood Count 6.8 10^3/uL (4.0-10.0)
--- NOTE | 2022-04-09 15:34 | ECG_ITS ---
[facility] Test Date: 2022-04-09 Pat Name: Derrek Crowe Department: Room: Gender: Male Design Agent: : 1965 Requested By: Tha Roman Order Number: [id number] Estrada MD: Derik Morgan M.D. Measurements Intervals [place] Rate: 124 P: [place]: QRS: -18 QRSD: 105 T: 17 QT: 322 QTc: 464 Interpretive Statements ATRIAL FIBRILLATION WITH RAPID VENTRICULAR RESPONSE ABNORMAL RHYTHM ECG Compared to ECG 02/06/2022 14:50:46 Intraventricular conduction delay no longer present Electronically Signed On 04-09-2022 23:41:52 CDT by Derik Morgan M.D. [email or web address]/[id number] f
[2022-04-09 16:42] VITALS: PULSE 125; RESP 14; O2SAT 92
[2022-04-09] MEDS: ketorolac 30 mg/mL INJ 15 MG IVP (17:02)
[2022-04-09] MEDS: metoprolol tartrate 1 mg/1 mL SDV 5 mL 5 MG IVP ×2 (17:02→17:45)
[2022-04-09] MEDS: acetaminophen 500 mg Tablet 1000 MG PO (17:02)
--- NOTE | 2022-04-09 17:15 | ECG_ITS ---
[facility] Test Date: 2022-04-09 Pat Name: Derrek Crowe Department: Room: Gender: Male Residency Director: : [id number] Requested By: Tha Roman Order Number: [id number] Estrada MD: Derik Morgan M.D. Measurements Intervals [place] Rate: 119 P: [place]: QRS: -15 QRSD: 105 T: 37 QT: 328 QTc: 462 Interpretive Statements ATRIAL FIBRILLATION WITH RAPID VENTRICULAR RESPONSE ABNORMAL RHYTHM ECG Compared to ECG 04/09/2022 15:50:35 No significant changes Electronically Signed On 04-10-2022 22:47:40 CDT by Derik Morgan M.D. [id number]
[2022-04-09 17:16] LABS: Alanine Aminotransferase 30 U/L (0-41); Albumin Level 4.3 g/dL (3.5-5.2); Alkaline Phosphatase 72 IU/L (40-130); Anion Gap 19.1 (5-19); Aspartate Amino Transferase 32 U/L (0-40); Blood Urea Nitrogen 14 mg/dL (6-20); Calcium 8.8 mg/dL (8.5-10.5); Carbon Dioxide 25 mmol/L (22-29); Chloride 102 mmol/L (98-107); Globulin 3.5 g/dL (1.3-4.6); Glomerular Filtration Rate 115.8 mL/min (90-130); Glucose 93 mg/dL (65-115); NT Pro B Type Natriuretic Pept 530 pg/mL (0-125); Osmolality Calculated 294 mOsm/kg (285-295); Potassium 4.1 mmol/L (3.5-5.1); Sodium 142 mmol/L (136-145); Total Bilirubin 0.7 mg/dL (0.15-1.2); Total Protein 7.8 g/dL (6.6-8.7)
[2022-04-09] MEDS: metoprolol tartrate 50 mg Tablet PO (17:45)
[2022-04-09 18:16] VITALS: RESP 14; O2SAT 95
[2022-04-09] MEDS: oxyCODONE 5 mg IR Tab/Cap PO (18:16)
--- NOTE | 2022-04-09 18:24 | ECG_ITS ---
[facility] Test Date: 2022-04-09 Pat Name: Derrek Crowe Department: Room: Gender: Male Brim Presser: : 1965 Requested By: Tha Roman Order Number: [id number] Estrada MD: Derik Morgan M.D. Measurements Intervals Independence Rate: 117 P: ND: QRS: -11 QRSD: 106 T: 21 QT: 335 QTc: 469 Interpretive Statements ATRIAL FIBRILLATION WITH RAPID VENTRICULAR RESPONSE ABNORMAL RHYTHM ECG Compared to ECG 04/09/2022 17:25:37 No significant changes Electronically Signed On 04-09-2022 23:42:12 CDT by Derik Morgan M.D. [email or web address]
[2022-04-09 20:20] LABS: Magnesium 2.1 mg/dL (1.7-2.3)
[2022-04-09 20:22] LABS: Troponin(5th) Baseline 16 ng/L (0-15)
[2022-04-09 20:49] LABS: Troponin 5 2HR 16.29 ng/L (0-15)
[2022-04-09 20:50] LABS: Troponin 5 2HR Delta 0.29 ABS# (0-10)
[2022-04-10] VITALS (11 sets, daily range): BP systolic 104–143; BP diastolic 75–113; PULSE 90–115; RESP 14–19; TEMP 36.2–36.8; O2SAT 92–96
--- NOTE | 2022-04-10 00:13 | USCV_ITS ---
Derrek Crowe Age: 56 Gender: M : 1965 Exam Date: 04/10/2022 09:37 Ordering Phys: Yadira Rodriguez MD Technologist: Exam Location: [facility] [place] Indication: chf BP: 132 / 74 HR: 106 Rhythm: Sinus Technical Quality: Adequate MEASUREMENTS (Male / Female) Normal Values 2D ECHO LV Diastolic Diameter PLAX 4.7 cm 4.2 - 5.9 / 3.9 - 5.3 cm LV Systolic Diameter PLAX 4.1 cm IVS Diastolic Thickness 1.1 cm 0.6 - 1.0 / 0.6 - 0.9 cm IVS Systolic Thickness 1.7 cm LVPW Diastolic Thickness 1.3 cm 0.6 - 1.0 / 0.6 - 0.9 cm LVPW Systolic Thickness 1.3 cm LVOT Diameter 2.1 cm LV Ejection Fraction 2D Teich 27.8 % LV Ejection Fraction MOD 2C 13.1 % LV Ejection Fraction 2C AL 14.9 % LA Diameter 5.5 cm IVC Diameter 1.9 cm M-MODE Aortic Annulus Diameter 3.2 cm LA Ao Ratio MM 1.9 MV E Point Septal Separation 1.9 cm DOPPLER AV Peak Velocity 111.0 cm/s LVOT Peak Velocity 84.0 cm/s AV Area Cont Eq vti 2.7 cm squared AV Area Cont Eq pk 2.5 cm squared MV Area PHT 5.0 cm squared Mitral E to A Ratio 1.0 MV E' Velocity 47.0 cm/s Mitral E to MV E' Ratio 28.3 Mitral E to LV E' Lateral Ratio 30.2 Mitral E to LV E' Septal Ratio 26.7 TR Peak Velocity 235.0 cm/s TR Peak Gradient 22.1 mmHg TV Peak E Velocity 90.7 cm/s Right Atrial Pressure 3.0 mmHg Pulmonary Artery Systolic Pressu 25.1 mmHg PV Peak Velocity 74.0 cm/s FINDINGS Left Ventricle Normal LV size with diminished ejection fraction of 28%. Severe diffuse hypokinesia left ventricle Right Ventricle Normal RV size with a slightly diminished ejection fraction Right Atrium Moderately increased right atrial size. Left Atrium Moderately increased left atrial size. Mitral Valve Mild mitral annular calcification. Thickened mitral valve. Mild- moderate mitral valve regurgitation. Aortic Valve Thickened aortic valve. [id number] aortic valve regurgitation. Tricuspid Valve Mild tricuspid valve regurgitation. Estimated pulmonary artery peak systolic pressure 38 mmHg Pulmonic Valve Pulmonic valve not well visualized. Pericardium No pericardial effusion. Aorta Normal aortic annulus size. IVC Normal inferior vena cava. CONCLUSIONS Normal LV size with diminished ejection fraction of 28%. Severe diffuse hypokinesia left ventricle. Moderate biatrial enlargementMild mitral annular calcification. Thickened mitral valve. Mild-moderate mitral valve regurgitation. Thickened aortic valve. [id number] aortic valve regurgitation. Mild tricuspid valve regurgitation. Estimated pulmonary artery peak systolic pressure 38 mmHg. There is no pericardial effusion. There are no intracardiac masses. Dr Derik Morgan MD [facility] (Electronically Signed) Final Date: 10 April 2022 23:02 S
--- NOTE | 2022-04-10 00:18 | P.HP_ITS ---
Providers/Chief Complaint Admitting Physician: Yadira Rodriguez MD Chief Complaint: FOOT/LEG PAIN, EDEMA BILATERAL History of Present Illness Derrek Crowe is a 56 year old male with a history of atrial fibrillation, alcohol abuse, withdrawal seizures, hypertension presenting to the emergency room today with chief complaints of increasing lower extremity edema and pain over the past 10 to 14 days. He states he has had multiple falls and thought he had hurt his ankles. X-rays today are unremarkable. He reports compliance with his med ications. In review of system endorses palpitations, chest discomfort with palpitations and dyspnea. Denies any fever chills cough URI type symptoms. From October 2018 patient underwent left and right heart cath and ventriculogram which showed an ejection fraction of 25% after ventricular systolic dysfunction. There was no significant CAD noted. I do not see any diuretics on the patient's medication list currently. He was additionally noted to be in A. fib with RVR with heart rate 1 40-1 50 for which she received 2 doses of medical prolonged 5 mg IV push and 50 mg p.o. dose of metoprolol tartrate. At the time of my assessment his heart rate is at 109 bpm in A. fib.He is noted to have fine tremors and sweating additionally. Review of Systems General: Reports: 10 or more systems reviewed and unremarkable except in HPI and below Const: Denies: fever(s), chills or body aches Eyes: Denies: change in vision, blurry vision or photophobia ENMT: Reports: hoarseness; Denies: throat pain, enlarged tonsils, odynophagia or nasal congestion Card: Denies: chest pain, palpitations, irregular heart rhythm, edema, swelling of feet/ankles, lightheadedness, pre-syncope, dyspnea on exertion or orthopnea Resp: Denies: dyspnea, productive cough, non-productive cough, wheezing, stridor, pain on inspiration, change in phlegm color, hemoptysis or chest congestion GI: Denies: abdominal pain, nausea, vomiting, hematemesis, coffee ground emesis, dysphagia, heartburn, diarrhea, constipation, GI cramping, change in stool character, hematochezia or melena : Denies: flank pain, dysuria, urinary frequency, urinary urgency, urinary hesitancy or hematuria Musc: Denies: neck pain, back pain, extremity pain, joint swelling, joint warmth or deformity Neuro: Denies: headache(s), numbness in extremities, weakness in extremities, sensory changes, difficulty walking, frequent falls, dizziness, vertigo, behavioral changes, Slurred speech present or seizure-like activity Psych: Denies: anxiety, depression, suicidal ideation or homicidal ideation Endo: Denies: polyuria, polydipsia, tired all the time, cold intolerance or hot flashes [place]/Lymph: Denies: easy bruising or easy bleeding Medications/Allergies Home Medications Medication Instructions Recorded Confirmed Last Taken Type apixaban 5 mg tablet (Eliquis) 5 mg PO BID #60 tab 04/03/22 04/09/22 04/08/22 Rx folic acid 1 mg tablet 1 mg PO DAILY #30 tab 04/03/22 04/09/22 04/08/22 Rx gabapentin 100 mg capsule 100 mg PO QPM #90 cap 04/03/22 04/09/22 04/08/22 Rx lisinopril 2.5 mg tablet 2.5 mg PO DAILY #30 tab 04/03/22 04/09/22 04/08/22 Rx metoprolol tartrate 50 mg tablet 50 mg PO BID #180 tab 04/03/22 04/09/22 04/08/22 Rx naltrexone 50 mg tablet 50 mg PO DAILY #90 tab 04/03/22 04/09/22 04/08/22 Rx omeprazole 20 mg capsule,delayed 20 mg PO DAILY #30 cap 04/03/22 04/09/22 04/08/22 Rx release spironolactone 25 mg tablet 12.5 mg PO DAILY #30 tab 04/03/22 04/09/22 04/08/22 Rx triamcinolone acetonide 0.025 % 1 applic TOPICAL BID #454 g 04/03/22 04/09/22 04/08/22 Rx topical cream Allergies Allergy/AdvReac Type Severity Reaction Status Date / Time No Known Allergies Allergy Verified 04/09/22 15:19 PFSH Acute PFSH: Medical History Anxiety Atrial fibrillation Congestive heart failure GERD (gastroesophageal reflux disease) Hypertension Family History Father Cancer Social History Smoking and tobacco status: former smoker Vitals/I&O/Wt Last Vital Signs Temp 97.8 F 04/10/22 00:16 Pulse 109 H 04/10/22 00:16 Resp 18 04/10/22 00:16 BP 131/99 04/10/22 00:16 Pulse Ox 94 04/10/22 00:16 Weight last 48 hrs Weight 68.039 kg Physical Exam Narrative: GEN: awake, alert, however falls back to sleep easily. Takes multiple tatempts o wake him up, answers questions with short replies. CVS: S1S2 N RS: Bilateral crackles to auscultation at lung bases. Abd: Soft, nt/nd , bs+ CLOUD OPERATIONS ENGINEER: no focal neuro deficits. EXT: B/L LE pitting edema+ Data : 04/09/22 15:00 04/09/22 16:21 Other Labs: Radiology Impressions Ankle X-Ray 04/09/22 14:55 IMPRESSION: No acute fracture. Chest X-Ray 04/09/22 14:55 Impression: Mild cardiomegaly. Knee X-Ray 04/09/22 14:55 Impression: Negative right knee. Laboratory Results WBC 6.8 10^3/uL (4.0-10.0) 04/09/22 15:00 RBC 4.71 10^6/uL (4.1-5.3) 04/09/22 15:00 Hgb 15.8 g/dL (11.7-16.6) 04/09/22 15:00 Hct 45.7 % (42.0-52.0) 04/09/22 15:00 MCV 97.0 fl (80-94) H 04/09/22 15:00 MCH 33.5 pg (28.0-34.0) 04/09/22 15:00 MCHC 34.6 g/dL (30.0-36.0) 04/09/22 15:00 RDW 12.9 % (12.1-15.1) 04/09/22 15:00 Plt Count 275 10^3/cmm (130-400) 04/09/22 15:00 MPV 10.4 fL (7.4-10.4) 04/09/22 15:00 Neut % (Auto) 51.4 % 04/09/22 15:00 Lymph % (Auto) 33.6 % 04/09/22 15:00 [place] % (Auto) 12.8 % 04/09/22 15:00 Eos % (Auto) 0.7 % 04/09/22 15:00 Baso % (Auto) 1.2 % 04/09/22 15:00 Neut # (Auto) 3.51 10^3/uL (1.8-7.7) 04/09/22 15:00 Lymph # (Auto) 2.3 10^3/uL (0.8-4.8) 04/09/22 15:00 [place] # (Auto) 0.9 10^3/uL (0.2-0.9) 04/09/22 15:00 Eos # (Auto) 0.1 10^3/uL (0.0-0.8) 04/09/22 15:00 Baso # (Auto) 0.1 10^3/uL (0.0-0.1) 04/09/22 15:00 Nucleated RBC % (auto) 0 % 04/09/22 15:00 Nucleated RBCs # 0.0 /100WBC 04/09/22 15:00 Sodium 142 mmol/L (136-145) 04/09/22 16:21 Potassium 4.1 mmol/L (3.5-5.1) 04/09/22 16:21 Chloride 102 mmol/L (98-107) 04/09/22 16:21 Carbon Dioxide 25 mmol/L (22-29) 04/09/22 16:21 Anion Gap 19.1 (5-19) H 04/09/22 16:21 BUN 14 mg/dL (6-20) 04/09/22 16:21 Creatinine 0.7 mg/dL (0.7-1.2) 04/09/22 16:21 GFR Calculation 115.8 mL/min (90-130) 04/09/22 16:21 Glucose 93 mg/dL (65-115) 04/09/22 16:21 Calculated Osmolality 294 mOsm/kg (285-295) 04/09/22 16:21 Calcium 8.8 mg/dL (8.5-10.5) 04/09/22 16:21 Magnesium 2.1 mg/dL (1.7-2.3) 04/09/22 16:21 Total Bilirubin 0.7 mg/dL (0.15-1.2) 04/09/22 16:21 AST 32 U/L (0-40) 04/09/22 16:21 ALT 30 U/L (0-41) 04/09/22 16:21 Alkaline Phosphatase 72 IU/L (40-130) 04/09/22 16:21 Troponin T Baseline 16 ng/L (0-15) H 04/09/22 16:21 Troponin T 120 Minute 16.29 ng/L (0-15) H 04/09/22 20:18 Delta Troponin T 0.29 ABS# (0-10) 04/09/22 20:18 NT-Pro-B Natriuret Pep 530 pg/mL (0-125) H 04/09/22 16:21 Total Protein 7.8 g/dL (6.6-8.7) 04/09/22 16:21 Albumin 4.3 g/dL (3.5-5.2) 04/09/22 16:21 Globulin 3.5 g/dL (1.3-4.6) 04/09/22 16:21 Other data: 10/2018 procedure Description: Left ventriculography Procedure Description: Coronary Angiography Diagnostic Findings No significant disease noted in the Left Main, LAD, Circumflex, or RCA coronary arteries. The left anterior descending artery appears to wrap around the LV apex minimally. The proximal LAD was found to have around 30% diffuse narrowing, involving the ostium .The circumflex artery is a large vessel gives off multiple OM branches and the PLV branch. The right coronary artery is a small non-dominant vessel which gives off a large atrial and AV lauryn branch. Coronary angiography shows left dominance. Conclusions No significant disease noted in the Left Main, LAD, Circumflex, or RCA coronary arteries. There was around 30% diffuse narrowing in the proximal LAD. Severe left ventricular systolic dysfunction. Ejection fraction of 25%. echo 09/2018: CONCLUSIONS #1. Multiple wall motion abnormality is with a diminished ejection fraction of 35-40%. #2. Moderately dilated right atrium and right ventricle. #3. Severe tricuspid valve regurgitation. #4. Moderate-severe mitral valve regurgitation. #5. Mild aortic valve regurgitation. #6. Mildly increased left atrial size. #7. Small pericardial effusion. Compared to the study from 03/25/2018, there is significant drop in the LV ejection fraction and significant increase in size of the right-sided chambers A&P Assessment and plan (1) Acute exacerbation of CHF (congestive heart failure): Acute on chronic systolic heart failure. Last known ejection fraction 25% from 2019. CHF today as evidenced by rales on exam, lower extremity edema, elevated BNP Lasix 40mg iv q24h Monitor I/O Likely will titrate lasix dosing based on clinical response. check echocardiogram for interval worsening, last known EF from 2019 at 25% Status: Acute Qualifiers: Heart failure type: systolic Qualified Code(s): I50.23 - Acute on chronic systolic (congestive) heart failure (2) Atrial fibrillation with rapid ventricular response: Received pushes of iv metoprolol in the ER with HR currently 100-110bpm increase daily dosing to metoprolol tartarate 75mg BID continue Eliquis 5 mg p.o. twice daily Status: Acute (3) Alcohol withdrawal: Currently exhibiting signs of alcohol withdrawal with tachycardia tremors and increased sweating. CIWA score at least at a 12 at this time. Added CIWA score and as needed Ativan per protocol. Thiamine 100 mg p.o. daily Folic acid 1 mg p.o. daily. Status: Acute Attestations Medical Necessity Statement*: Anticipate greater than 2 midnight admission for management of acute on chronic CHF, IV diuresis, heart rate control and alcohol withdrawal. Coding Level of Care Code Acute Diet Supervisor for Angelica Pollard Diagnoses Acute exacerbation of CHF (congestive heart failure) I50.23 Heart failure type: systolic Atrial fibrillation with rapid ventricular response I48.91 Alcohol withdrawal F10.239
[2022-04-10] MEDS: FUROsemide 10 mg/mL SDV 4mL 40 MG IVP (00:48)
[2022-04-10 01:43] LABS: Troponin 5 6HR 15.28 ng/L (0-15)
[2022-04-10 01:50] LABS: Troponin 5 6HR Delta -0.72 ng/L (0-12)
[2022-04-10 01:53] LABS: Alcohol Level 68 mg/dL (0-10)
[2022-04-10] MEDS: ondansetron 2 mg/ML SDV 2 mL 4 MG IVP ×2 (01:57→13:48)
[2022-04-10] MEDS: LORazepam 2 mg/mL INJ 1 mL IVP (02:23)
[2022-04-10] MEDS: metoprolol tartrate 1 mg/1 mL SDV 5 mL 5 MG IVP (04:26)
[2022-04-10] MEDS: pantoprazole DR 40 mg Tablet PO (08:07)
[2022-04-10] MEDS: apixaban 5 mg Tablet PO ×2 (08:07→17:28)
[2022-04-10] MEDS: multivitamin therapeutic Tablet 1 TAB PO (08:07)
[2022-04-10] MEDS: thiamine 100 mg Tablet PO (08:07)
[2022-04-10] MEDS: metoprolol tartrate 50 mg Tablet 75 MG PO ×2 (08:08→21:46)
[2022-04-10] MEDS: folic acid 1 mg Tablet PO (08:08)
[2022-04-10] MEDS: lisinopril 2.5 mg Tablet PO (08:08)
[2022-04-10] MEDS: spironolactone 25 mg Tablet 12.5 MG PO (08:08)
[2022-04-10] MEDS: naltrexone hcl 50 mg Tablet PO (09:58)
--- NOTE | 2022-04-10 10:49 | PC.CHAP ---
Pastoral Care Encounter/Spiritual Assessment Type of Contact [] Declined washing machine assembler visit [] Patient/Family/Request visit [] Outpatient visit [] Follow-up visit [] Physician referral [] Code/Alert [x] Routine visit [] Staff referral [] Actively dying [] Patient sleeping [] Family support [] [] Out of room [] Palliative care [] [x] Receiving care in room [] Pre-surgical visit [] Trauma [] Long length of stay [] ICU visit [] Other: Relational/Emotional Strength [x] Patient feels connected with others/family/visitors/staff [] Distress [] Loneliness/isolation [] Abandonment Spirituality of Patient [x] Person of [place]ila [] Attends Jainism of their [place] [x] Believes in Prayer [] Reads Bible or Gnosticism materials [] There are Spiritual issues to be addressed Lawn Mower Interventions [x] Prayer [x] Active listening [x] Non-anxious presence [x] Spiritual/emotional support [] Crisis/trauma care [x] Spiritual counseling [] Bereavement support [] Provided bereavement packet [] Provided Bible/devotional materials [] Provided toy/stuffed animal, coloring book to patient or family member [] Provided Communion [] Anointing/[place] [] Salvation [x] Completed spiritual assessment [] Other: Impact on Illness or Injury [] Angry [] Fearful [] Anxious [] Often cries [] Exhaustion [] Unable to work [] Unable to attend restorationist [] Unable to walk/stand [] Unable to read [] Unable to drive [] Unable to eat/drink [] Unable to sleep [] Unable to be with family [] Patient intubated [] Other: Summary feels good has a good attitude waiting on tests and doctors report the he well go home Time spent with patient 10 mins
--- NOTE | 2022-04-10 11:04 | PC.NURSE ---
Patient is doing well today. No nausea or vomiting, no pain. Patient has been resting in bed and has been calm with no complaints this morning.
--- NOTE | 2022-04-10 11:15 | PC.NURSE ---
nurse was notified about the BP of 132/113
[2022-04-10] MEDS: LORazepam 2 mg Tablet PO (13:31)
[2022-04-10 16:56] LABS: Glucose Point of Care 109 mg/dL (70-110)
[2022-04-10] MEDS: gabapentin 100 mg Capsule PO (17:28)
--- NOTE | 2022-04-10 21:21 | P.PN_ITS ---
Subjective Subjective: Patient feels better than he did when he came in. Has long history of alcohol use with prior attempts to quit drinking. Has had previous DTs. Normally drinks at least a half 1/5 of liquor a day. Indicates that he is actively trying to quit drinking. Going to in [place]. Has required CIWA p rotocol doses. Should he not be able to make decisions for himself, his mother or brother he would let make decisions for him. Gives permission to discuss current medical issues with them if needed. Vitals/I&O/Wt Last Vital Signs Temp 97.9 F 04/10/22 19:47 Pulse 113 H 04/10/22 19:47 Resp 18 04/10/22 19:47 BP 129/78 04/10/22 19:47 Pulse Ox 93 04/10/22 19:47 04/10/22 04/10/22 04/10/22 06:59 14:59 22:59 Intake Total 480 / 480 240 / 720 Output Total 1670 / 1670 Balance -1670 / -1670 480 / 480 240 / 720 Weight last 48 hrs Weight 68.039 kg Physical Exam Narrative: Constitutional: Awake, tremulous, cooperative, diaphoretic, blood sugar 109 HEENT: Normocephalic, mucous membranes moist, no nystagmus Respiratory: Clear to auscultation bilaterally Cardiovascular: Irregularly irregular rhythm, tachycardic in the 110s Abdomen: Soft, nontender Extremities: No pitting edema Neuro: Tremulous but currently following commands and moving all extremities Other: Flat affect but answers questions, engages in conversation Data : 04/09/22 15:00 04/09/22 16:21 A&P Assessment and plan (1) Acute exacerbation of CHF (congestive heart failure): Acute on chronic systolic heart failure. Last known ejection fraction 25% from 2019. CHF at admission as evidenced by rales on exam, lower extremity edema, elevated BNP Lasix 40mg iv q24h Monitor I/O Titrate lasix dosing based on clinical response. Echocardiogram report pending Continue home aldactone and ritesh inhibitor Status: Acute Qualifiers: Heart failure type: systolic Qualified Code(s): I50.23 - Acute on chronic systolic (congestive) heart failure (2) Atrial fibrillation with rapid ventricular response: With beta blockade, improved rate control Chronically on Eliquis 5 mg p.o. twice daily Status: Acute (3) Alcohol withdrawal: Chronic alcoholism with 3-4 attempts at cessation, prior history of DTs CIWA protocol May have to add to or change therapy depending on volume of benzodiazepines needed given shortage of IV/IM ativan Thiamine 100 mg p.o. daily Folic acid 1 mg p.o. daily. Encourage AA On naltrexone at home Status: Acute (4) Elevated TSH: No history of hypothyroidism, suspect related to acute events Will need rechecked when medically stable Status: Acute Plan Suspect acute alcohol withdrawal has led to afib with rvr and subsequent acute on chronic CHF in this scenario Fluids, replace lytes as needed, watch blood sugars Eliquis provides DVT prophylaxis SCD PPI Anticipate DC home Will need medical and supportive follow up Attestations Medical Necessity Statement*: Requires ongoing inpatient stay for management of acute alcohol withdrawal, CHF and atrial fibrillation with rapid ventricular response. At high risk of rapid clinical decline without medical monitoring. Coding Level of Care Code Acute Paper Cup Handle Machine Operator for g Fwd Diagnoses Acute exacerbation of CHF (congestive heart failure) I50.23 Heart failure type: systolic Atrial fibrillation with rapid ventricular response I48.91 Alcohol withdrawal F10.239 Elevated TSH R79.89
[2022-04-11] VITALS (9 sets, daily range): BP systolic 104–126; BP diastolic 66–91; PULSE 73–115; RESP 12–18; TEMP 36.3–37; O2SAT 90–98
[2022-04-11] MEDS: FUROsemide 10 mg/mL SDV 4mL 40 MG IVP (01:58)
[2022-04-11] MEDS: LORazepam 2 mg/mL INJ 1 mL IVP (02:07)
[2022-04-11 04:00] LABS: INR 1.34 (0.8-1.2)
[2022-04-11 04:05] LABS: Ammonia 39 umol/L (16-60)
[2022-04-11 04:14] LABS: Alanine Aminotransferase 24 U/L (0-41); Albumin Level 4.1 g/dL (3.5-5.2); Alkaline Phosphatase 78 IU/L (40-130); Anion Gap 15.4 (5-19); Aspartate Amino Transferase 26 U/L (0-40); Blood Urea Nitrogen 15 mg/dL (6-20); Carbon Dioxide 28 mmol/L (22-29); Chloride 97 mmol/L (98-107); Globulin 3.2 g/dL (1.3-4.6); Glomerular Filtration Rate 138.4 mL/min (90-130); Glucose 105 mg/dL (65-115); Osmolality Calculated 285 mOsm/kg (285-295); Potassium 3.4 mmol/L (3.5-5.1); Sodium 137 mmol/L (136-145); Total Bilirubin 2.5 mg/dL (0.15-1.2); Total Protein 7.3 g/dL (6.6-8.7)
[2022-04-11 04:48] LABS: Free T4 Free Thyroxine 1.02 ng/dL (0.82-1.77)
[2022-04-11] MEDS: metoprolol tartrate 50 mg Tablet 75 MG PO ×2 (08:22→22:43)
[2022-04-11] MEDS: thiamine 100 mg Tablet PO (08:22)
[2022-04-11] MEDS: multivitamin therapeutic Tablet 1 TAB PO (08:23)
[2022-04-11] MEDS: spironolactone 25 mg Tablet 12.5 MG PO (08:23)
[2022-04-11] MEDS: apixaban 5 mg Tablet PO ×2 (08:23→17:19)
[2022-04-11] MEDS: folic acid 1 mg Tablet PO (08:23)
[2022-04-11] MEDS: pantoprazole DR 40 mg Tablet PO (08:23)
[2022-04-11] MEDS: lisinopril 2.5 mg Tablet PO (08:23)
[2022-04-11] MEDS: LORazepam 2 mg Tablet PO ×3 (08:24→21:25)
[2022-04-11] MEDS: naltrexone hcl 50 mg Tablet PO (09:36)
[2022-04-11] MEDS: gabapentin 100 mg Capsule PO (17:19)
--- NOTE | 2022-04-11 19:46 | PM.PN ---
Subjective Subjective: Patient seen twice today. The first time he was doing much better, calm and conversational. The second time he was in the hallway demanding to leave because he did not like it here. When asked what the year was he told me it was 2001. He repeated 2001 multiple times. When I clarified that it was 2021 for him he was able to acknowledge that. He knows he is in [place]. He was unable to tell me anything that had happened between our first conversation and the second conversation beyond feeling like people are treating him as if he is stupid. I explained that that was not the case at all and apologized if he had felt that way. We talked for a little bit about the role of his heart rate, breathing problems and alcohol use Vitals/I&O/Wt Last Vital Signs Temp 98.6 F 04/11/22 15:27 Pulse 91 04/11/22 15:27 Resp 16 04/11/22 15:27 BP 116/88 04/11/22 15:27 Pulse Ox 96 04/11/22 15:27 04/11/22 04/11/22 04/11/22 06:59 14:59 22:59 Intake Total 200 / 920 720 / 720 Balance 200 / 920 720 / 720 Physical Exam Narrative: Constitutional: Awake, with redirection oriented, cooperative but clearly anxious at second evaluation HEENT: Normocephalic, mucous membranes moist Respiratory: Clear to auscultation bilaterally Cardiovascular: Irregularly irregular rhythm, tachycardic in the 110s Abdomen: Soft, nontender Extremities: No pitting edema Neuro: Tremulous but currently following commands and moving all extremities Other: Flat affect but answers questions, engages in conversation Data : 04/09/22 15:00 04/11/22 03:22 Other data: Laboratory Tests 04/11/22 04/11/22 03:22 03:22 Magnesium 2.0 Total Bilirubin 2.5 H AST 26 ALT 24 Alkaline Phosphatase 78 Ammonia 39 Free T4 1.02 A&P Assessment and plan (1) Acute exacerbation of CHF (congestive heart failure): Acute on chronic systolic heart failure. Last known ejection fraction 25% from 2019. CHF at admission as evidenced by rales on exam, lower extremity edema, elevated BNP Lasix 40mg iv q24, will give extra dose as equivacal fluid balance Titrate lasix dosing based on clinical response. Echocardiogram report EF 28% severe left ventricular hypokinesis, mild MR, AR and TR Continue home aldactone and ritesh inhibitor Status: Acute Qualifiers: Heart failure type: systolic Qualified Code(s): I50.23 - Acute on chronic systolic (congestive) heart failure (2) Atrial fibrillation with rapid ventricular response: With beta blockade, improved rate control overall, but tachycardic with exertion Chronically on Eliquis 5 mg p.o. twice daily Motoprolol dosing increased from home regimen Status: Acute (3) Alcohol withdrawal: Chronic alcoholism with 3-4 attempts at cessation, prior history of DTs CIWA protocol adjusted for po formulation Thiamine 100 mg p.o. daily Folic acid 1 mg p.o. daily. Encourage AA On naltrexone at home Stop naltrexone Status: Acute (4) Elevated TSH: No history of hypothyroidism, suspect related to acute events Will need rechecked when medically stable Status: Acute Plan Suspect acute alcohol withdrawal has led to afib with rvr and subsequent acute on chronic CHF in this scenario but he has known significant cardiac disease as well Isolated bilirubin elevation Diuresis, replace lytes as needed, watch blood sugars CIWA protocol Eliquis provides DVT prophylaxis SCD PPI Anticipate DC home Will need medical and supportive follow up Full code Attestations Medical Necessity Statement*: Requires ongoing inpatient stay for management of acute alcohol withdrawal, CHF and atrial fibrillation with rapid ventricular response. At high risk of rapid clinical decline without medical monitoring. Coding Level of Care Code Acute Cleaner Signs for Chg Fwd Diagnoses Acute exacerbation of CHF (congestive heart failure) I50.23 Heart failure type: systolic Atrial fibrillation with rapid ventricular response I48.91 Alcohol withdrawal F10.239 Elevated TSH R79.89
[2022-04-12] VITALS (8 sets, daily range): BP systolic 97–116; BP diastolic 57–76; PULSE 58–108; RESP 15–17; TEMP 36.4–36.9; O2SAT 93–97
[2022-04-12] MEDS: LORazepam 2 mg Tablet PO ×2 (01:59→09:46)
[2022-04-12 05:59] LABS: Alanine Aminotransferase 25 U/L (0-41); Albumin Level 3.8 g/dL (3.5-5.2); Alkaline Phosphatase 69 IU/L (40-130); Blood Urea Nitrogen 14 mg/dL (6-20); Calcium 9.1 mg/dL (8.5-10.5); Carbon Dioxide 27 mmol/L (22-29); Chloride 99 mmol/L (98-107); Globulin 3.6 g/dL (1.3-4.6); Glomerular Filtration Rate 170.8 mL/min (90-130); Glucose 88 mg/dL (65-115); Osmolality Calculated 284 mOsm/kg (285-295); Sodium 137 mmol/L (136-145); Total Protein 7.4 g/dL (6.6-8.7)
[2022-04-12 06:00] LABS: Anion Gap 14.8 (5-19); Aspartate Amino Transferase 35 U/L (0-40); Potassium 3.8 mmol/L (3.5-5.1)
[2022-04-12] MEDS: thiamine 100 mg Tablet PO (09:47)
[2022-04-12] MEDS: spironolactone 25 mg Tablet 12.5 MG PO (09:47)
[2022-04-12] MEDS: metoprolol tartrate 50 mg Tablet 75 MG PO (09:48)
[2022-04-12] MEDS: pantoprazole DR 40 mg Tablet PO (09:48)
[2022-04-12] MEDS: folic acid 1 mg Tablet PO (09:49)
[2022-04-12] MEDS: apixaban 5 mg Tablet PO (09:49)
[2022-04-12] MEDS: potassium chloride ER 20 mEq Tablet 40 MEQ PO (09:49)
[2022-04-12] MEDS: lisinopril 2.5 mg Tablet PO (09:49)
[2022-04-12] MEDS: multivitamin therapeutic Tablet 1 TAB PO (09:49)
--- NOTE | 2022-04-12 13:38 | PM.DCS ---
Discharge Providers Date of Admission: 04/10/22 09:47 Date of Discharge: April 12, 2022 Attending Provider at Admission: Yadira Rodriguez MD Attending Provider at Discharge: Leah Mckeon MD Primary Care Provider: Keyla Jeffries Diagnoses at Discharge Discharge Diagnosis (1) Acute exacerbation of CHF (congestive heart failure): Status: Resolved Qualifiers: Heart failure type: systolic Qualified Code(s): I50.23 - Acute on chronic systolic (congestive) heart failure (2) Atrial fibrillation with rapid ventricular response: Status: Resolved (3) Alcohol withdrawal: Status: Resolved Qualifiers: Complication of substance-induced condition: uncomplicated Qualified Code(s): F10.230 - Alcohol dependence with withdrawal, uncomplicated (4) Elevated TSH: Status: Acute Reason for Visit Reason for Visit: FOOT/LEG PAIN, EDEMA BILATERAL Brief History: H&P: Derrek Crowe is a 56 year old male with a history of atrial fibrillation, alcohol abuse, withdrawal seizures, hypertension presenting to the emergency room today with chief complaints of increasing lower extremity edema and pain over the past 10 to 14 days.? He states he has had multiple falls and thought he had hurt his ankles.? X-rays today are unremarkable.? He reports compliance with his medications.? In review of system endorses palpitations, chest discomfort with palpitations and dyspnea.? Denies any fever chills cough URI type symptoms. From October 2018 patient underwent left and right heart cath and ventriculogram which showed an ejection fraction of 25% after ventricular systolic dysfunction.? There was no significant CAD noted.? I do not see any diuretics on the patient's medication list currently. He was additionally noted to be in A. fib with RVR with heart rate 1 40-1 50 for which she received 2 doses of medical prolonged 5 mg IV push and 50 mg p.o. dose of metoprolol tartrate.? At the time of my assessment his heart rate is at 109 bpm in A. fib.He is noted to have fine tremors and sweating additionally. Hospital Course Hospital Course Mr. Crowe was admitted to a medical bed. He was given some IV diuresis as well as rate controlling agents. He has a known ejection fraction of 25%. Repeat echocardiogram this hospital stay demonstrated an ejection fraction of 28%. He was negative about 1500 mL after the first 24 hours. For atrial fibrillation with rapid ventricular response beta-blockade was continued. He has chronically been on Eliquis. Patient was monitored for alcohol withdrawal symptoms. He did require some doses of benzodiazepines. He was generally cooperative. TSH was checked and was found to be elevated. With the acute events not surprising. Recommend recheck in a few weeks when more stable. Patient's heart rate was better controlled although at times would still become tachycardic. Respiratory status was improved. I suspect the events leading to hospital stay were precipitated by drinking either intoxication or withdrawal. Metoprolol was increased to 75 mg or 1-1/2 50 mg tablets twice a day. Patient stated that he was not taking naltrexone at home so it was discontinued from medication list for accuracy. Recommended that he see his primary care provider soon to facilitate follow-up from hospital and to help him maintain abstinence from alcohol. X-rays of patient's lower extremities did not show any evidence of fracture. He did not complain of lower extremity pain to me during the course of his hospital stay. On the day of discharge he had a flat affect and was eager to get home. Lungs were clear. He had an irregular but rate controlled rhythm. Discharge Data Studies Completed and Pending Completed Studies During Hospitalization Category Date Time Status XR ankle LT min 3V* [id number] Stat Exams 04/09/22 14:55 Completed XR ankle RT min 3V* [id number] Stat Exams 04/09/22 14:55 Completed XR chest 1V portable [id number] Stat Exams 04/09/22 14:55 Completed XR knee RT 3V* [id number] Stat Exams 04/09/22 14:55 Completed CV. echo complete* [id number] Routine Ultrasound 04/10/22 00:13 Completed Radiology Impressions Ankle X-Ray 04/09/22 14:55 IMPRESSION: No acute fracture. Chest X-Ray 04/09/22 14:55 Impression: Mild cardiomegaly. Knee X-Ray 04/09/22 14:55 Impression: Negative right knee. Laboratory Results WBC 6.8 10^3/uL (4.0-10.0) 04/09/22 15:00 RBC 4.71 10^6/uL (4.1-5.3) 04/09/22 15:00 Hgb 15.8 g/dL (11.7-16.6) 04/09/22 15:00 Hct 45.7 % (42.0-52.0) 04/09/22 15:00 MCV 97.0 fl (80-94) H 04/09/22 15:00 MCH 33.5 pg (28.0-34.0) 04/09/22 15:00 MCHC 34.6 g/dL (30.0-36.0) 04/09/22 15:00 RDW 12.9 % (12.1-15.1) 04/09/22 15:00 Plt Count 275 10^3/cmm (130-400) 04/09/22 15:00 MPV 10.4 fL (7.4-10.4) 04/09/22 15:00 Neut % (Auto) 51.4 % 04/09/22 15:00 Lymph % (Auto) 33.6 % 04/09/22 15:00 [place] % (Auto) 12.8 % 04/09/22 15:00 Eos % (Auto) 0.7 % 04/09/22 15:00 Baso % (Auto) 1.2 % 04/09/22 15:00 Neut # (Auto) 3.51 10^3/uL (1.8-7.7) 04/09/22 15:00 Lymph # (Auto) 2.3 10^3/uL (0.8-4.8) 04/09/22 15:00 [place] # (Auto) 0.9 10^3/uL (0.2-0.9) 04/09/22 15:00 Eos # (Auto) 0.1 10^3/uL (0.0-0.8) 04/09/22 15:00 Baso # (Auto) 0.1 10^3/uL (0.0-0.1) 04/09/22 15:00 Nucleated RBC % (auto) 0 % 04/09/22 15:00 Nucleated RBCs # 0.0 /100WBC 04/09/22 15:00 PT 17.00 SECONDS (12.1-14.9) H 04/11/22 03:22 INR 1.34 (0.8-1.2) H 04/11/22 03:22 Sodium 137 mmol/L (136-145) 04/12/22 04:40 Potassium 3.8 mmol/L (3.5-5.1) 04/12/22 04:40 Chloride 99 mmol/L (98-107) 04/12/22 04:40 Carbon Dioxide 27 mmol/L (22-29) 04/12/22 04:40 Anion Gap 14.8 (5-19) 04/12/22 04:40 BUN 14 mg/dL (6-20) 04/12/22 04:40 Creatinine 0.5 mg/dL (0.7-1.2) L 04/12/22 04:40 GFR Calculation 170.8 mL/min (90-130) H 04/12/22 04:40 Glucose 88 mg/dL (65-115) 04/12/22 04:40 POC Glucose 109 mg/dL (70-110) 04/10/22 12:18 Calculated Osmolality 284 mOsm/kg (285-295) L 04/12/22 04:40 Calcium 9.1 mg/dL (8.5-10.5) 04/12/22 04:40 Magnesium 2.0 mg/dL (1.7-2.3) 04/11/22 03:22 Total Bilirubin 2.0 mg/dL (0.15-1.2) H 04/12/22 04:40 AST 35 U/L (0-40) 04/12/22 04:40 ALT 25 U/L (0-41) 04/12/22 04:40 Alkaline Phosphatase 69 IU/L (40-130) 04/12/22 04:40 Ammonia 39 umol/L (16-60) 04/11/22 03:22 Troponin T Baseline 16 ng/L (0-15) H 04/09/22 16:21 Troponin T 120 Minute 16.29 ng/L (0-15) H 04/09/22 20:18 Delta Troponin T 0.29 ABS# (0-10) 04/09/22 20:18 Troponin T Hi Sens 6Hr 15.28 ng/L (0-15) H 04/10/22 01:13 Troponin T Hi Sens 6Hr Delta -0.72 ng/L (0-12) L 04/10/22 01:13 NT-Pro-B Natriuret Pep 530 pg/mL (0-125) H 04/09/22 16:21 Total Protein 7.4 g/dL (6.6-8.7) 04/12/22 04:40 Albumin 3.8 g/dL (3.5-5.2) 04/12/22 04:40 Globulin 3.6 g/dL (1.3-4.6) 04/12/22 04:40 TSH 6.20 uIU/mL (0.27-4.20) H 04/10/22 01:13 Free T4 1.02 ng/dL (0.82-1.77) 04/11/22 03:22 Ethyl Alcohol 68 mg/dL (0-10) H 04/10/22 01:13 Vitals Last Vital Signs Temp 98.5 F 04/12/22 11:18 Pulse 83 04/12/22 11:18 Resp 15 04/12/22 11:18 BP 116/76 04/12/22 11:18 Pulse Ox 96 04/12/22 11:18 Discharge Plan Discharge Patient Disposition: Home Condition: Stable Prescriptions: New metoprolol tartrate 50 mg Tablet 75 mg PO BID@0900,2100 Qty: 90 0RF Vitamin B-1 (mononitrate) 100 mg Tablet 100 mg PO DAILY Qty: 0 0RF Continued Eliquis 5 mg tablet 5 mg PO BID Qty: 60 3RF folic acid 1 mg tablet 1 mg PO DAILY Qty: 30 3RF gabapentin 100 mg capsule 100 mg PO QPM Qty: 90 1RF lisinopril 2.5 mg tablet 2.5 mg PO DAILY Qty: 30 3RF omeprazole 20 mg capsule,delayed release(DR/EC) 20 mg PO DAILY Qty: 30 3RF spironolactone 25 mg tablet 12.5 mg PO DAILY Qty: 30 3RF triamcinolone acetonide 0.025 % cream 1 applic topical BID Qty: 454 0RF Discontinued metoprolol tartrate 50 mg tablet 50 mg PO BID Qty: 180 1RF naltrexone 50 mg tablet 50 mg PO DAILY Qty: 90 1RF Discharge Orders: Discharge Order (Routine); Ordered 04/12/22 Ordered By: Leah Mckeon Referrals: Keyla Jeffries NP [Nurse Practitioner] - 4-7 days (Please call Keyla Jeffries's Office on Thursday at [phone] to schedule a follow appointment for 4-7 days. Thank you.) Discharge Diet: Advance as tolerated Discharge Activity: Increase activity as tolerated Patient Instructions: Metoprolol (By mouth) (Lopressor, Toprol XL), Thiamine (By mouth) ([facility] Vitamin B1, Nature's..., Heart Failure (DC), A-fib (Atrial Fibrillation) (DC), Alcohol Withdrawal (DC), Alcohol Dependence (DC), Opioid Safety Activity Restrictions/Additional Instructions: You presented to the emergency room with complaint of a fall and pain in your lower extremities along with some increased swelling. During the course of your work-up in the emergency room you were found to be in atrial fibrillation with a high heart rate up to 140s to 150s. You also had evidence of acute heart failure. Your heart enzymes were above baseline but did not elevate during the course of your hospital stay. You were treated with an increased dose of metoprolol with improvement in your heart rate. I am discharging you on an increased dose of metoprolol of 75 mg twice a day. You will be taking 1-1/2 50 mg tablets twice a day. You should continue your Eliquis. For the heart failure, you received several days of IV Lasix, a diuretic or water medication. Once your heart rate was better controlled, you were no longer showing symptoms of heart failure. At this point in time I am continuing you on your usual spironolactone. Consideration may have to be given to adjusting dosage of spironolactone or adding additional diuretic therapy in the future. Your ejection fraction on echocardiogram was 28%. Recommend follow-up with your usual powdered sugar pulverizer operator or referral to establish care if you do not have one. You indicated that you were trying to quit drinking prior to coming into the hospital. Blood alcohol level when you came in was 63. When you try to quit drinking, it can cause your heart rate to go up because of the effects on your body. When your heart rate goes up as high as yours was when you came into the emergency room, particularly if you have known heart failure, your heart cannot pump blood as effectively and you can have fluid overload. I believe changes in your heart rate probably led to the fluid overload. In terms of your complaint of pain in your legs, x-rays were done of your ankles demonstrating some mild soft tissue swelling but no fractures. While you were here your thyroid function was checked. Your TSH was 6.20 which is elevated. Your free T4 however was normal at 1.02. Recommend that you have your thyroid function rechecked in 3 to 4 weeks. You have recently been prescribed a medication called naltrexone. You indicated that you were not sure if you were taking this medication. Because of this it was discontinued from your home medication list. Please discuss with your primary care provider resumption of this medication as appropriate. As we discussed during the hospital stay, encourage you to continue AA meetings. If you have recurrent symptoms including feeling your heart beating very fast, trouble breathing, dizziness, chest pain, seek medical attention. Discharge Attestations Time Spent in Discharge Care*: greater than 30 min Specific Discharge Activities: educating patient, discussing with telehealth case manager/social workers/dc planners, documenting/other paperwork and evaluating patient/reviewing data Quality Metrics Clinical Quality Measures [ No reported AMI, CVA or VTE this stay] Coding Level of Care Code Acute Chg DC note Diagnoses Acute exacerbation of CHF (congestive heart failure) I50.23 Heart failure type: systolic Atrial fibrillation with rapid ventricular response I48.91 Alcohol withdrawal F10.230 Complication of substance-induced condition: uncomplicated Elevated TSH R79.89
--- NOTE | 2022-04-12 17:05 | PC.NURSE ---
discharge instructions given and explained to pt and pt's brother.both verb understanding.discharged ambulatory to exit.brother to drive pt home.
== END 2022-04-12 16:50 | disposition home or self-care (01) | DRG 291 ==
LOC: ER 19:06 → MEDSURG 21:27
PROVIDERS: Admitting Provider Student in an Organized Health Care Education/Training Program; Emergency Provider Emergency Medicine; Visit Provider Hospitalist
DX: I11.0 Hypertensive heart disease with heart failure (principal); I50.23 Acute on chronic systolic (congestive) heart failure; F10.239 Alcohol dependence with withdrawal, unspecified; E78.5 Hyperlipidemia, unspecified; I48.91 Unspecified atrial fibrillation; Z87.891 Personal history of nicotine dependence; Y90.9 Presence of alcohol in blood, level not specified; F41.9 Anxiety disorder, unspecified; K21.9 Gastro-esophageal reflux disease without esophagitis; R94.6 Abnormal results of thyroid function studies; Z79.01 Long term (current) use of anticoagulants
CPT/HCPCS: 36415; 36416; 71045; 73562; 73610; 80053; 80307; 82140; 82962; 83735; 83880; 84439; 84443; 84484; 85025; 85610; 93005; 93306; 96374; 96375; 99285; G0378; J1885; J1940; J2060; J2405; J3490

== ENCOUNTER 2022-05-22 11:00 | Emergency (ER) | payer MEDICARE, MEDICAID, SELFPAY ==
[2022-05-22] VITALS (31 sets, daily range): BP systolic 99–143; BP diastolic 71–103; PULSE 95–156; RESP 14–27; O2SAT 95–100; BMI 24.4
--- NOTE | 2022-05-22 | CT_ITS ---
WS: [id number] CT HEAD TECHNIQUE: Noncontrast CT of the head obtained from the skullbase to the vertex. CLINICAL INFORMATION: AMS COMPARISON: August 10, 2021 DLP: 1268.[address] scans at [facility] use at least one of these dose optimization techniques: automated e xposure control; mA and/or kV adjustment per patient size (includes targeted exams where dose is matc hed to clinical indication); or iterative reconstruction. FINDINGS: Acute subdural blood products layering along the posterior falx, straight sinus, and tentorium bilate rally. No significant mass effect or midline shift. No other visualized blood products. Basilar ciste rns are patent. No hydrocephalus. Moderate small vessel changes with moderate to advanced parenchymal volume loss. Mastoid air cells well aerated. Fluid within the paranasal sinuses and posterior nasoph arynx. Endotracheal tube. No visualized fractures. CT/CT head wo con* [id number] IMPRESSION: 1. Acute subdural blood products along the posterior falx and straight sinus. This extends inferiorly along the tentorium bilaterally. No mass effect or midl ine shift. 2. Moderate small vessel changes with moderate to advanced parenchymal volume loss. 3. Fluid and mucosal thickening ethmoid air cells. Fluid in the posterior naso pharynx. Endotracheal tube. 4. No other acute findings. Notified Erick Rhoades DO at 05/22/2022 3:31 PM.
[2022-05-22] MEDS: midazolam 1 mg/mL INJ 2 mL 2 MG IVP (11:00)
[2022-05-22] MEDS: succinylcholine 20 mg/mL SDV 10mL 110 MG IVP (11:00)
--- NOTE | 2022-05-22 11:02 | ECG_ITS ---
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 Measurements Intervals [place] Rate: 156 P: [place]: QRS: 12 QRSD: 107 T: 265 QT: 288 QTc: 465 Interpretive Statements ATRIAL FLUTTER WITH RAPID VENTRICULAR RESPONSE ST DEVIATION AND MODERATE T-WAVE ABNORMALITY, CONSIDER INFERIOR ISCHEMIA [-0.1+ mV T-WAVE IN II/aVF] Compared to ECG 04/09/2022 18:48:29 T-wave abnormality now present Possible ischemia now present Atrial fibrillation no longer present Electronically Signed On 05-23-2022 6:21:04 CDT by Susie Rodas M.D. [id number]
--- NOTE | 2022-05-22 11:09 | XR_ITS ---
WS: [id number] Portable AP supine chest, 05/22/2022 Clinical Data: post intubation Comparison: Portable chest, 04/09/2022. Findings: There is an endotracheal tube which ends at the level of the clavicles. The heart is enlarg ed. There is a nodule in the periphery of the right lung unchanged. No masses or effusions are seen. The pulmonary vascularity is not increased. Monitor leads are on the chest wall. XR/XR chest 1V portable [id number] Impression: 1. Endotracheal tube ends at level of clavicles. 2. Cardiomegaly.
[2022-05-22 11:11] LABS: ABG PCO2 36.5 mmHg (35-45); Arterial Blood Gas Hematocrit 49.1 % (42-52); Base Excess ABG -18.4 mmol/L (-2.0-2.0); Blood Gas Allen Test Pos; Blood Gas Sample Site Radial, right; Blood Gas Sample Type Arterial; Carboxyhemoglobin 0.4 %THgb (0.4-20.1); HCO3 ABG 10.8 mmol/L (22-26); HGB O2 Sat 98.5 % (95-100); Ionized Calcium Level - ABG 1.2 mmol/L (1.1-1.4); Methemoglobin 0.9 % (0.4-1.5); Oxygen Device AMBU; Oxygen Saturation ABG 99.8; Potassium Level - ABG 3.9 mmol/L (3.5-5.0)
[2022-05-22] MEDS: dilTIAZem 5 mg/mL SDV 5 mL 25 MG (11:20)
[2022-05-22 11:21] LABS: Basophils # 0.1 10^3/uL (0.0-0.1); Basophils % 0.2 %; Hematocrit 49.9 % (42.0-52.0); Hemoglobin 16.2 g/dL (11.7-16.6); Lymphocytes # 1.7 10^3/uL (0.8-4.8); Lymphocytes % 5.9 %; Mean Corpuscular HGB Conc 32.5 g/dL (30.0-36.0); Mean Corpuscular Hemoglobin 33.8 pg (28.0-34.0); Mean Corpuscular Volume 104.2 fl (80-94); Mean Platelet Volume 10.9 fL (7.4-10.4); Monocytes # 2.1 10^3/uL (0.2-0.9); Monocytes % 7.6 %; Neutrophils % 85.7 %; Nucleated Red Blood Cells % 0 %; Platelet Count 271 10^3/cmm (130-400); Red Blood Count 4.79 10^6/uL (4.1-5.3); Red Cell Distribution Width 12.9 % (12.1-15.1); White Blood Count 28.1 10^3/uL (4.0-10.0)
[2022-05-22 11:23] LABS: ABG PH Result 7.08 (7.35-7.45)
[2022-05-22] MEDS: propofol 1,000 MG/100 ML INJ 9.84 MG IV (11:28)
[2022-05-22] MEDS: esmolol drip 2,500 MG/250 ML PREMIX 24.6 MG (11:29)
--- NOTE | 2022-05-22 11:41 | PC.PHAR ---
unable to verify medications with pt due to pt being intubated-pt had medication brought in with him with dates from [id number] were in a ziploc bag and placed in pts room on the linen cart-medications had dced written on some of the labels and had a ziploc bag full of unidentifiable medications without labels-called pts pharmacy [facility] states they fill his medications every month-medications entered are medications [facility] has filled recently-notes are made in the pharmacy comments with last fill dates and ds
--- NOTE | 2022-05-22 11:44 | PC.NURSE ---
THIS NURSE WALKED INTO ROOM 16 PT BEGAN TO HAVE A SEIZURE. CALLED FOR HELP. PT TRANSPORTED TO ER COT. PHYSICIAN INSTRUCTED TO PREPARE TO INTUBATE PT. PT GIVEN 40MG ETOMIDATE 1056, 110MG SUCC@ 1056. PT INTUBATED WITH 8.0 TUBE 24 TO THE LIP. PT MOVED TO TRAUMA ROOM 11. 1058 VS 153/74 HR 143 02 92% 100% FIO2. PHYSICAN GAVE VERBAL ORDER FOR ESMOLOL DRIP AT 50MCG AND PROPOFAL DRIP AT 20MCG. PHYSICIAN GAVE VERBAL ORDER FOR 20MG CARDIZEM AT 1120. CENTRAL LINE PLACED AT 1145.
[2022-05-22] MEDS: metoprolol tartrate 1 mg/1 mL SDV 5 mL 5 MG IVP (11:45)
[2022-05-22 11:47] LABS: Alanine Aminotransferase 29 U/L (0-41); Alkaline Phosphatase 89 U/L (40-130); Blood Urea Nitrogen 11 mg/dL (6-20); Calcium 9.4 mg/dL (8.5-10.5); Carbon Dioxide 13 mmol/L (22-29); Chloride 89 mmol/L (98-107); Globulin 3.7 g/dL (1.3-4.6); Glucose 157 mg/dL (65-115); Lipase 38 U/L (13-60); Osmolality Calculated 295 mOsm/kg (285-295); Sodium 141 mmol/L (136-145); Total Bilirubin 1.6 mg/dL (0.15-1.2); Total Protein 7.7 g/dL (6.6-8.7); Troponin(5th) Baseline 22 ng/L (0-15)
[2022-05-22 11:48] LABS: Alcohol Level < 10 mg/dL (0-10); Aspartate Amino Transferase 50 U/L (0-40)
[2022-05-22 11:49] LABS: Creatine Phosphokinase 658 U/L (39-308)
[2022-05-22 11:50] LABS: Lactic Sepsis W/Reflex 25.5 mmol/L (0.5-2.2)
[2022-05-22] MEDS: propofol 10 mg/mL SDV 20 mL 100 MG IVP ×4 (12:15→16:12)
[2022-05-22] MEDS: sodium chloride 0.9% 1,000 ML 999 ML IV ×2 (12:24→14:06)
[2022-05-22] MEDS: dilTIAZem 5 mg/mL SDV 5 mL 20 MG IVP (12:38)
--- NOTE | 2022-05-22 12:51 | ED_ITS ---
HPI - Altered Mental Status General: Chief Complaint: Altered Mental Status Stated Complaint: AMS Time Seen by Provider: 05/22/22 11:08 [facility] ED PFSH: Medical History Anxiety Atrial fibrillation Congestive heart failure GERD (gastroesophageal reflux disease) Hypertension Family History Father Cancer Social History Smoking and tobacco status: former smoker Course Vital Signs: Vital signs: Vital Signs Pulse Rate 133 H 05/22/22 14:20 Respiratory Rate 17 05/22/22 14:20 Blood Pressure 113/80 05/22/22 14:20 Pulse Oximetry 96 05/22/22 14:20 Oxygen Delivery Me thod 05/22/22 11:24 Fraction of Inspir ed Oxygen 85 05/22/22 13:37 MDM - Altered Mental Status Lab Data : 05/22/22 11:00 05/22/22 11:[address] 05/22/22 00:00 IMPRESSION: 1. Acute subdural blood products along the posterior falx and straight sinus. This extends inferiorly along the tentorium bilaterally. No mass effect or midline shift. 2. Moderate small vessel changes with moderate to advanced parenchymal volume loss. 3. Fluid and mucosal thickening ethmoid air cells. Fluid in the posterior nasopharynx. Endotracheal tube. 4. No other acute findings. Notified Erick Rhoades DO at 05/22/2022 3:31 PM. Chest X-Ray 05/22/22 11:09 Impression: 1. Endotracheal tube ends at level of clavicles. 2. Cardiomegaly. Laboratory Results WBC 28.1 10^3/uL (4.0-10.0) H 05/22/22 11:00 RBC 4.79 10^6/uL (4.1-5.3) 05/22/22 11:00 Hgb 16.2 g/dL (11.7-16.6) 05/22/22 11:00 Hct 49.9 % (42.0-52.0) 05/22/22 11:00 MCV 104.2 fl (80-94) H 05/22/22 11:00 MCH 33.8 pg (28.0-34.0) 05/22/22 11:00 MCHC 32.5 g/dL (30.0-36.0) 05/22/22 11:00 RDW 12.9 % (12.1-15.1) 05/22/22 11:00 Plt Count 271 10^3/cmm (130-400) 05/22/22 11:00 MPV 10.9 fL (7.4-10.4) H 05/22/22 11:00 Neut % (Auto) 85.7 % 05/22/22 11:00 Lymph % (Auto) 5.9 % 05/22/22 11:00 [place] % (Auto) 7.6 % 05/22/22 11:00 Eos % (Auto) 0.0 % 05/22/22 11:00 Baso % (Auto) 0.2 % 05/22/22 11:00 Neut # (Auto) 24.00 10^3/uL (1.8-7.7) H 05/22/22 11:00 Lymph # (Auto) 1.7 10^3/uL (0.8-4.8) 05/22/22 11:00 [place] # (Auto) 2.1 10^3/uL (0.2-0.9) H 05/22/22 11:00 Eos # (Auto) 0.0 10^3/uL (0.0-0.8) 05/22/22 11:00 Baso # (Auto) 0.1 10^3/uL (0.0-0.1) 05/22/22 11:00 Nucleated RBC % (auto) 0 % 05/22/22 11:00 Nucleated RBCs # 0.0 /100WBC 05/22/22 11:00 Specimen Type Arterial 05/22/22 11:05 Sample Site Radial, right 05/22/22 11:05 ABG pH 7.08 (7.35-7.45) L* 05/22/22 11:05 ABG pCO2 36.5 mmHg (35-45) 05/22/22 11:05 ABG pO2 442.0 mmHg (80.0-100.0) H 05/22/22 11:05 ABG HCO3 10.8 mmol/L (22-26) L 05/22/22 11:05 ABG O2 Saturation 99.8 05/22/22 11:05 ABG Base Excess -18.4 mmol/L (-2.0-2.0) L 05/22/22 11:05 Andrzej Test Pos 05/22/22 11:05 A-a O2 Gradient Not Reportable 05/22/22 11:05 Hematocrit 49.1 % (42-52) 05/22/22 11:05 Hgb O2 Saturation 98.5 % (95-100) 05/22/22 11:05 Carboxyhemoglobin 0.4 %THgb (0.4-20.1) 05/22/22 11:05 Methemoglobin 0.9 % (0.4-1.5) 05/22/22 11:05 Total Hemoglobin 16.0 g/dL (14-18) 05/22/22 11:05 Sodium 141.0 mmol/L (131-143) 05/22/22 11:05 Potassium 3.9 mmol/L (3.5-5.0) 05/22/22 11:05 Glucose 175.0 mg/dL (70-115) H 05/22/22 11:05 Ionized Calcium 1.2 mmol/L (1.1-1.4) 05/22/22 11:05 O2 Delivery Device Ambu 05/22/22 11:05 O2 Liters/Min 15.0 % 05/22/22 11:05 Mechanical Applications Engineer ID Hinja 05/22/22 11:05 Sodium 141 mmol/L (136-145) 05/22/22 11:00 Potassium 4.0 mmol/L (3.5-5.1) 05/22/22 11:00 Chloride 89 mmol/L (98-107) L 05/22/22 11:00 Carbon Dioxide 13 mmol/L (22-29) L 05/22/22 11:00 Anion Gap 43.0 (5-19) H 05/22/22 11:00 BUN 11 mg/dL (6-20) 05/22/22 11:00 Creatinine 1.2 mg/dL (0.7-1.2) 05/22/22 11:00 GFR Calculation 62.0 mL/min (90-130) L 05/22/22 11:00 Glucose 157 mg/dL (65-115) H 05/22/22 11:00 Calculated Osmolality 295 mOsm/kg (285-295) 05/22/22 11:00 Lactic Acid 25.5 mmol/L (0.5-2.2) H* 05/22/22 11:00 Lactic Acid (Sepsis) 3.4 mmol/L (0.5-2.2) H 05/22/22 14:51 Calcium 9.4 mg/dL (8.5-10.5) 05/22/22 11:00 Magnesium 3.0 mg/dL (1.7-2.3) H 05/22/22 11:00 Total Bilirubin 1.6 mg/dL (0.15-1.2) H 05/22/22 11:00 AST 50 U/L (0-40) H 05/22/22 11:00 ALT 29 U/L (0-41) 05/22/22 11:00 Alkaline Phosphatase 89 U/L (40-130) 05/22/22 11:00 Creatine Kinase 658 U/L (39-308) H* 05/22/22 11:00 Troponin T Baseline 22 ng/L (0-15) H 05/22/22 11:00 Troponin T 120 Minute 22.89 ng/L (0-15) H 05/22/22 13:13 Delta Troponin T 0.89 ABS# (0-10) 05/22/22 13:13 Total Protein 7.7 g/dL (6.6-8.7) 05/22/22 11:00 Albumin 4.0 g/dL (3.5-5.2) 05/22/22 11:00 Globulin 3.7 g/dL (1.3-4.6) 05/22/22 11:00 Lipase 38 U/L (13-60) 05/22/22 11:00 Urine Color Yellow (Yellow) 05/22/22 14:40 Urine Appearance Cloudy (CLEAR) 05/22/22 14:40 Urine pH 5 (5-7) 05/22/22 14:40 Ur Specific [place] 1.010 (1.005-1.030) 05/22/22 14:40 Urine Protein Trace (Negative) 05/22/22 14:40 Urine Glucose (UA) Norm (Normal) 05/22/22 14:40 Urine Ketones 1+ (Negative) H 05/22/22 14:40 Urine Blood 3+ (Negative) H 05/22/22 14:40 Urine Nitrate Negative (Negative) 05/22/22 14:40 Urine Bilirubin Neg (Negative) 05/22/22 14:40 Urine Urobilinogen Norm mg/dL (Negative) 05/22/22 14:40 Ur Leukocyte Esterase Negative (Negative) 05/22/22 14:40 Urine RBC 5-10 /hpf (0-2) H 05/22/22 14:40 Urine WBC 0-4 /hpf (0-5) H 05/22/22 14:40 Ur Squamous Epith Cells 0-4 /hpf (0-5) H 05/22/22 14:40 Amorphous Sediment 2+ /hpf 05/22/22 14:40 Hyaline Casts 0-4 /lpf H 05/22/22 14:40 Urine Opiates Screen Negative ng/mL (Negative) 05/22/22 14:40 Ur Barbiturates Screen Negative ng/mL (Negative) 05/22/22 14:40 Ur Phencyclidine Scrn Negative ng/mL (Negative) 05/22/22 14:40 Ur Amphetamines Screen Negative ng/mL (Negative) 05/22/22 14:40 U Benzodiazepines Scrn Negative ng/mL (Negative) 05/22/22 14:40 Urine Cocaine Screen Negative ng/mL (Negative) 05/22/22 14:40 U Marijuana (THC) Screen Negative ng/mL (Negative) 05/22/22 14:40 Ethyl Alcohol < 10 mg/dL (0-10) 05/22/22 11:00 Discharge Plan Discharge Condition: Stable Prescriptions: No Action Eliquis 5 mg tablet 5 mg PO BID Qty: 60 3RF folic acid 1 mg tablet 1 mg PO DAILY Qty: 30 3RF gabapentin 100 mg capsule 100 mg PO QPM Qty: 90 1RF lisinopril 2.5 mg tablet 2.5 mg PO DAILY Qty: 30 3RF omeprazole 20 mg capsule,delayed release(DR/EC) 20 mg PO DAILY Qty: 30 3RF spironolactone 25 mg tablet 12.5 mg PO DAILY Qty: 30 3RF triamcinolone acetonide 0.025 % cream 1 applic topical BID Qty: 454 0RF metoprolol tartrate 50 mg Tablet 75 mg PO BID@0900,2100 Qty: 90 0RF thiamine mononitrate (vit B1) [Vitamin B-1 (mononitrate)] 100 mg Tablet 100 mg PO DAILY Qty: 0 0RF naltrexone 50 mg tablet 50 mg PO DAILY Coding Level of Care Code ED Sales Engineering Manager for Angelica Pollard
--- NOTE | 2022-05-22 13:05 | PC.NURSE ---
PT PLACED ON CONTINUOUS NIBP, SPO2, AND CM
[2022-05-22 13:07] LABS: Reflex Lactate Order REFLEX LACTIC ORDERD
[2022-05-22] MEDS: piperacillin-tazobactam 4.5 GM in sodium chloride 0.9% (plus) 50 ML IV (13:17)
--- NOTE | 2022-05-22 13:22 | ECG_ITS ---
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 Measurements Intervals [place] Rate: 122 P: [place]: QRS: 14 QRSD: 108 T: 24 QT: 321 QTc: 458 Interpretive Statements ATRIAL FIBRILLATION WITH RAPID VENTRICULAR RESPONSE ABNORMAL RHYTHM ECG Compared to ECG 05/22/2022 11:02:42 Atrial flutter no longer present T-wave abnormality no longer present Possible ischemia no longer present Electronically Signed On 05-23-2022 6:30:01 CDT by Susie Rodas M.D. [id number]
[2022-05-22 13:44] LABS: Troponin 5 2HR 22.89 ng/L (0-15); Troponin 5 2HR Delta 0.89 ABS# (0-10)
[2022-05-22] MEDS: propofol 1,000 MG/100 ML INJ 34.44 MG IV (14:30)
[2022-05-22 15:08] LABS: Amphetamines Screen Urine Negative (Negative); Barbiturates Screen Urine Negative (Negative); Benzodiazepines Screen Urine Negative (Negative); Cocaine Screen Urine Negative (Negative); Opiate Screen Urine Negative (Negative); PCP Screen Urine Negative (Negative); THC Screen Urine Negative (Negative)
[2022-05-22 15:16] LABS: Lactic Acid level (Lactate) 3.4 mmol/L (0.5-2.2)
[2022-05-22 15:36] LABS: Urine Color Yellow (Yellow)
[2022-05-22 15:37] LABS: Add Urine Culture? No; Add Urine Microscopic? YES; Amorphous Sediment Urine 2+ /hpf; Bilirubin Urine Neg (Negative); Blood Urine 3+ (Negative); Glucose Urine UA Norm (Normal); Hyaline Casts Urine 0-4 /lpf; Ketones Urine 1+ (Negative); Leukocyte Esterase Urine Negative (Negative); Nitrate Urine Negative (Negative); Protein Urine Trace (Negative); Squamous Epithelial Cell Urine 0-4 /hpf (0-5); Urine Appearance Cloudy (CLEAR); Urobilinogen Urine Norm (Negative); WBC Urine 0-4 /hpf (0-5); pH Urine 5 (5-7)
--- NOTE | 2022-05-22 16:07 | ED_ITS ---
HPI - General Adult General: Chief complaint: Altered Mental Status Stated complaint: AMS Time Seen by Provider: 05/22/22 11:08 Source: patient Mode of arrival: EMS History of Present Illness: 57-year-old male arrives via EMS. Patient's family called he was found down on the floor and uncertain how long he was down it may been as much is 12 to 15 hours. Use poorly positioned on the floor and his left leg was mildly cyanotic it reperfused well once it was repositioned. EMS reports he was answering questions when they first arrived and in route shortly after arriving here before even got to the room he appeared to be having a seizure when I came to the room he was actively seizing and it bit his tongue he was emergently intubated by RSI. Was able unable to get any history from the patient because of the circumstances. No family members arrived here that were able to help with history. His mother who he lives with his has some dementia was also brought in the emergency room was hospitalized and could not contribute anything to the history. Onset (ago): unknown (12 to 15 hours) Review of Systems General: Reports: ROS unobtainable due to endotracheal tube and ROS unobtainable due to mental status PFS ED PFSH: Medical History Anxiety Atrial fibrillation Congestive heart failure GERD (gastroesophageal reflux disease) Hypertension Family History Father Cancer Social History Smoking and tobacco status: former smoker Physical Exam Const: GENERAL APPEARANCE: patient mechanically ventilated HENMT: COMMON NORMALS: normocephalic and atraumatic HEAD & SCALP: normocephalic and atraumatic Neck/C-Spine: COMMON NORMALS: no lymphadenopathy, supple and no JVD Resp: COMMON NORMALS: normal respiratory effort, No retractions, No use of accessory muscles and clear to auscultation bilaterally AUSCULTATION: clear to auscultation bilaterally Cardio: COMMON NORMALS: no JVD RATE: tachycardic RHYTHM: abnormal rhythm irregularly irregular GI: COMMON NORMALS: Soft to palpation and No hepatosplenomegaly present AUSCULTATION: Yes normoactive bowel sounds PALPATION: Yes Soft to palpation, No Tenderness to palpation present (GI), No Guarding due to palpation present (GI) and Yes No hepatosplenomegaly present Extremity: COMMON NORMALS: normal to inspection, capillary refill normal, no clubbing, cyanosis or edema, no calf tenderness and no pedal edema Skin: COMMON NORMALS: no rashes or lesions noted GENERAL SKIN EXAM: no rashes or lesions noted Procedures Central Line Placement Right IJ: Time Out Performed: Yes Patient Placed on Monitor/Pulse Ox: Yes MD Prep: mask, gown and gloves Central Line Prep: Chlorhexidine scrub Local Anesthetic: lidocaine 1% Amount of anesthesia used (mL): 5 Ultrasound Used for Placement: Yes Central Line Lumen Inserted: triple Post Procedure: sutured in place, good blood return, all ports aspirated, flushed, capped and sterile dressing applied Patient Tolerated Procedure: well Complications: none Intubation Time out performed: No sedative: Etomidate paralytic: Succinylcholine Laryngoscope: fiber optic video scope Assist Device Used: fiber optic device ET Tube Size: 8.5 ET Tube Uncuffed: No Tube Secured Depth (cm): 22 Tube Secured Location: teeth Tube Placement Confirmation: visualized tube passing through cords, equal breath sounds bilaterally, no breath sounds over epigastrium and confirmation by capnometry Patient Tolerated Procedure: well Intubation Complications: none Course Vital Signs: Vital signs: Vital Signs Pulse Rate 133 H 05/22/22 14:20 Respiratory Rate 17 05/22/22 14:20 Blood Pressure 113/80 05/22/22 14:20 Pulse Oximetry 96 05/22/22 14:20 Oxygen Delivery Ia thod 05/22/22 11:24 Fraction of Inspir ed Oxygen 85 05/22/22 13:37 [facility] - General Adult Medical Decision Making At the time presentation patient began actively seizing he was emergently RSI it in the initial exam room and then transferred to a trauma room. He was loaded with Keppra labs reviewed after they were resulted he is pancultured started on Zosyn out of concern for possible aspiration he was given fluids. He developed A. fib and rapid ventricular response he was started on esmolol initially and then changed to amiodarone. He was given Levophed and fluids for hypotension. Patient was loaded with Keppra due to seizures. Amiodarone did control his rate. Patient given propofol and Versed IV for sedation. He has been given a banana bag and [address] of the head also showed a subdural hematoma which is acute but does not appear to be causing any midline shift or signs of increased intracranial pressure. Blood alcohol negative. No ICU beds available here will transfer via air VAC to Dr. Dominguez at [facility]. Medical Records I reviewed the patient's medical records. Lab Data I reviewed the patient's lab results. : 05/22/22 11:00 05/22/22 11:[address] 05/22/22 00:00 IMPRESSION: 1. Acute subdural blood products along the posterior falx and straight sinus. This extends inferiorly along the tentorium bilaterally. No mass effect or midline shift. 2. Moderate small vessel changes with moderate to advanced parenchymal volume loss. 3. Fluid and mucosal thickening ethmoid air cells. Fluid in the posterior nasopharynx. Endotracheal tube. 4. No other acute findings. Notified Erick Rhoades DO at 05/22/2022 3:31 PM. Chest X-Ray 05/22/22 11:09 Impression: 1. Endotracheal tube ends at level of clavicles. 2. Cardiomegaly. Laboratory Results WBC 28.1 10^3/uL (4.0-10.0) H 05/22/22 11:00 RBC 4.79 10^6/uL (4.1-5.3) 05/22/22 11:00 Hgb 16.2 g/dL (11.7-16.6) 05/22/22 11:00 Hct 49.9 % (42.0-52.0) 05/22/22 11:00 MCV 104.2 fl (80-94) H 05/22/22 11:00 MCH 33.8 pg (28.0-34.0) 05/22/22 11:00 MCHC 32.5 g/dL (30.0-36.0) 05/22/22 11:00 RDW 12.9 % (12.1-15.1) 05/22/22 11:00 Plt Count 271 10^3/cmm (130-400) 05/22/22 11:00 MPV 10.9 fL (7.4-10.4) H 05/22/22 11:00 Neut % (Auto) 85.7 % 05/22/22 11:00 Lymph % (Auto) 5.9 % 05/22/22 11:00 Person % (Auto) 7.6 % 05/22/22 11:00 Eos % (Auto) 0.0 % 05/22/22 11:00 Baso % (Auto) 0.2 % 05/22/22 11:00 Neut # (Auto) 24.00 10^3/uL (1.8-7.7) H 05/22/22 11:00 Lymph # (Auto) 1.7 10^3/uL (0.8-4.8) 05/22/22 11:00 Person # (Auto) 2.1 10^3/uL (0.2-0.9) H 05/22/22 11:00 Eos # (Auto) 0.0 10^3/uL (0.0-0.8) 05/22/22 11:00 Baso # (Auto) 0.1 10^3/uL (0.0-0.1) 05/22/22 11:00 Nucleated RBC % (auto) 0 % 05/22/22 11:00 Nucleated RBCs # 0.0 /100WBC 05/22/22 11:00 Specimen Type Arterial 05/22/22 11:05 Sample Site Radial, right 05/22/22 11:05 ABG pH 7.08 (7.35-7.45) L* 05/22/22 11:05 ABG pCO2 36.5 mmHg (35-45) 05/22/22 11:05 ABG pO2 442.0 mmHg (80.0-100.0) H 05/22/22 11:05 ABG HCO3 10.8 mmol/L (22-26) L 05/22/22 11:05 ABG O2 Saturation 99.8 05/22/22 11:05 ABG Base Excess -18.4 mmol/L (-2.0-2.0) L 05/22/22 11:05 Andrzej Test Pos 05/22/22 11:05 A-a O2 Gradient Not Reportable 05/22/22 11:05 Hematocrit 49.1 % (42-52) 05/22/22 11:05 Hgb O2 Saturation 98.5 % (95-100) 05/22/22 11:05 Carboxyhemoglobin 0.4 %THgb (0.4-20.1) 05/22/22 11:05 Methemoglobin 0.9 % (0.4-1.5) 05/22/22 11:05 Total Hemoglobin 16.0 g/dL (14-18) 05/22/22 11:05 Sodium 141.0 mmol/L (131-143) 05/22/22 11:05 Potassium 3.9 mmol/L (3.5-5.0) 05/22/22 11:05 Glucose 175.0 mg/dL (70-115) H 05/22/22 11:05 Ionized Calcium 1.2 mmol/L (1.1-1.4) 05/22/22 11:05 O2 Delivery Device Ambu 05/22/22 11:05 O2 Liters/Min 15.0 % 05/22/22 11:05 Unit [employer] 05/22/22 11:05 Sodium 141 mmol/L (136-145) 05/22/22 11:00 Potassium 4.0 mmol/L (3.5-5.1) 05/22/22 11:00 Chloride 89 mmol/L (98-107) L 05/22/22 11:00 Carbon Dioxide 13 mmol/L (22-29) L 05/22/22 11:00 Anion Gap 43.0 (5-19) H 05/22/22 11:00 BUN 11 mg/dL (6-20) 05/22/22 11:00 Creatinine 1.2 mg/dL (0.7-1.2) 05/22/22 11:00 GFR Calculation 62.0 mL/min (90-130) L 05/22/22 11:00 Glucose 157 mg/dL (65-115) H 05/22/22 11:00 Calculated Osmolality 295 mOsm/kg (285-295) 05/22/22 11:00 Lactic Acid 25.5 mmol/L (0.5-2.2) H* 05/22/22 11:00 Lactic Acid (Sepsis) 3.4 mmol/L (0.5-2.2) H 05/22/22 14:51 Calcium 9.4 mg/dL (8.5-10.5) 05/22/22 11:00 Magnesium 3.0 mg/dL (1.7-2.3) H 05/22/22 11:00 Total Bilirubin 1.6 mg/dL (0.15-1.2) H 05/22/22 11:00 AST 50 U/L (0-40) H 05/22/22 11:00 ALT 29 U/L (0-41) 05/22/22 11:00 Alkaline Phosphatase 89 U/L (40-130) 05/22/22 11:00 Creatine Kinase 658 U/L (39-308) H* 05/22/22 11:00 Troponin T Baseline 22 ng/L (0-15) H 05/22/22 11:00 Troponin T 120 Minute 22.89 ng/L (0-15) H 05/22/22 13:13 Delta Troponin T 0.89 ABS# (0-10) 05/22/22 13:13 Total Protein 7.7 g/dL (6.6-8.7) 05/22/22 11:00 Albumin 4.0 g/dL (3.5-5.2) 05/22/22 11:00 Globulin 3.7 g/dL (1.3-4.6) 05/22/22 11:00 Lipase 38 U/L (13-60) 05/22/22 11:00 Urine Color Yellow (Yellow) 05/22/22 14:40 Urine Appearance Cloudy (CLEAR) 05/22/22 14:40 Urine pH 5 (5-7) 05/22/22 14:40 Ur Specific [place] 1.010 (1.005-1.030) 05/22/22 14:40 Urine Protein Trace (Negative) 05/22/22 14:40 Urine Glucose (UA) Norm (Normal) 05/22/22 14:40 Urine Ketones 1+ (Negative) H 05/22/22 14:40 Urine Blood 3+ (Negative) H 05/22/22 14:40 Urine Nitrate Negative (Negative) 05/22/22 14:40 Urine Bilirubin Neg (Negative) 05/22/22 14:40 Urine Urobilinogen Norm mg/dL (Negative) 05/22/22 14:40 Ur Leukocyte Esterase Negative (Negative) 05/22/22 14:40 Urine RBC 5-10 /hpf (0-2) H 05/22/22 14:40 Urine WBC 0-4 /hpf (0-5) H 05/22/22 14:40 Ur Squamous Epith Cells 0-4 /hpf (0-5) H 05/22/22 14:40 Amorphous Sediment 2+ /hpf 05/22/22 14:40 Hyaline Casts 0-4 /lpf H 05/22/22 14:40 Urine Opiates Screen Negative ng/mL (Negative) 05/22/22 14:40 Ur Barbiturates Screen Negative ng/mL (Negative) 05/22/22 14:40 Ur Phencyclidine Scrn Negative ng/mL (Negative) 05/22/22 14:40 Ur Amphetamines Screen Negative ng/mL (Negative) 05/22/22 14:40 U Benzodiazepines Scrn Negative ng/mL (Negative) 05/22/22 14:40 Urine Cocaine Screen Negative ng/mL (Negative) 05/22/22 14:40 U Marijuana (THC) Screen Negative ng/mL (Negative) 05/22/22 14:40 Ethyl Alcohol < 10 mg/dL (0-10) 05/22/22 11:00 Critical Care Time 2 Critical Care Time: Critical Care Time: Yes Total Critical Care Time: 60 Attestation: The high probability of a clinically significant, sudden or life threatening deterioration of the patient's neurologic cardiovascular system(s) required my full and direct attention, intervention and personal management. The critical care time is as shown. This time is in addition to time spent performing any reported procedures but includes the following: [x] Data and vital sign review and interpretation [x] Patient assessment, examination and intervention [x] Documentation [x] Medication orders and management Discharge Plan Discharge Patient Disposition: Xfer Short-Term Hosp Clinical Impression: Sepsis, Acute subdural hematoma, Alcohol abuse, Atrial fibrillation with rapid ventricular response, Alcohol withdrawal seizure, Rhabdomyolysis Condition: Stable Prescriptions: No Action Eliquis 5 mg tablet 5 mg PO BID Qty: 60 3RF folic acid 1 mg tablet 1 mg PO DAILY Qty: 30 3RF gabapentin 100 mg capsule 100 mg PO QPM Qty: 90 1RF lisinopril 2.5 mg tablet 2.5 mg PO DAILY Qty: 30 3RF omeprazole 20 mg capsule,delayed release(DR/EC) 20 mg PO DAILY Qty: 30 3RF spironolactone 25 mg tablet 12.5 mg PO DAILY Qty: 30 3RF triamcinolone acetonide 0.025 % cream 1 applic topical BID Qty: 454 0RF metoprolol tartrate 50 mg Tablet 75 mg PO BID@0900,2100 Qty: 90 0RF thiamine mononitrate (vit B1) [Vitamin B-1 (mononitrate)] 100 mg Tablet 100 mg PO DAILY Qty: 0 0RF naltrexone 50 mg tablet 50 mg PO DAILY Coding Level of Care Code 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
--- NOTE | 2022-05-22 16:09 | PC.NURSE ---
bottle of propofol sent with airevac team
--- NOTE | 2022-05-24 07:10 | PC.NURSE ---
VERBAL ORDER FOR ESMOLOL DRIP BY DR. CARLSON WAS NOT ORDERED PRIOR TO OVERRIDE. MEDICATION ORDER FOR ESMOLOL DRIP HAS BEEN ENTERED.
== END 2022-05-22 16:32 | disposition short-term general hospital (02) ==
PROVIDERS: Emergency Provider Family Medicine
DX: A41.9 Sepsis, unspecified organism (principal); S06.5X9A Traumatic subdural hemorrhage with loss of consciousness of unspecified duration, initial encounter; X58.XXXA Exposure to other specified factors, initial encounter; I48.20 Chronic atrial fibrillation, unspecified; F10.139 Alcohol abuse with withdrawal, unspecified; Y90.0 Blood alcohol level of less than 20 mg/100 ml; I11.0 Hypertensive heart disease with heart failure; I50.9 Heart failure, unspecified
CPT/HCPCS: 36415; 36600; 51702; 70450; 71045; 80051; 80053; 80306; 80307; 81001; 82330; 82550; 82805; 83605; 83690; 83735; 84484; 85025; 87040; 87070; 87205; 93005; 94002; 94799; 96365; 96366; 96367; 96375; 99291; 99292; C1751; J0282; J0330; J1953; J2250; J2543; J2704; J3490; J7030; J7060

== ENCOUNTER → 2022-06-23 13:07 | Outpatient (BNVA) | payer MEDICARE, MEDICAID, SELFPAY | PROVIDERS: Visit Provider Nurse Practitioner Family | DX: I10 Essential (primary) hypertension (principal); I48.91 Unspecified atrial fibrillation; I50.9 Heart failure, unspecified; E78.5 Hyperlipidemia, unspecified; F32.9 Major depressive disorder, single episode, unspecified; R26.81 Unsteadiness on feet; R53.1 Weakness; F10.20 Alcohol dependence, uncomplicated; K59.00 Constipation, unspecified; I48.11 Longstanding persistent atrial fibrillation; E78.2 Mixed hyperlipidemia | CPT/HCPCS: 80053; 80061; 82607; 82746; 83735 ==

== ENCOUNTER 2022-07-29 06:00 | Outpatient (RCR) | payer MEDICARE, MEDICAID, SELFPAY | END 2022-08-27 23:59 | disposition home or self-care (01) | LOC: TPT 06:00 | PROVIDERS: Visit Provider Nurse Practitioner Family | DX: R53.1 Weakness (principal); R26.81 Unsteadiness on feet | CPT/HCPCS: 97110; 97116; 97163 ==

== ENCOUNTER → 2022-08-20 12:56 | Outpatient (BNVA) | payer MEDICARE, MEDICAID, SELFPAY | PROVIDERS: Visit Provider Nurse Practitioner Family | DX: R94.4 Abnormal results of kidney function studies (principal); I50.9 Heart failure, unspecified; L40.9 Psoriasis, unspecified; R79.89 Other specified abnormal findings of blood chemistry | CPT/HCPCS: 80053; 80061; 82306; 82607; 82746; 83036; 83735; 84439; 84443; 85025 ==

== ENCOUNTER 2022-08-28 06:00 | Outpatient (RCR) | payer MEDICARE, MEDICAID, SELFPAY | END 2022-09-27 23:59 | disposition home or self-care (01) | LOC: TPT 06:00 | PROVIDERS: Visit Provider Nurse Practitioner Family | DX: R53.1 Weakness (principal); R26.81 Unsteadiness on feet | CPT/HCPCS: 97110; 97116 ==

== ENCOUNTER 2022-09-28 06:00 | Outpatient (RCR) | payer MEDICARE, MEDICAID, SELFPAY | END 2022-10-28 23:59 | disposition home or self-care (01) | LOC: TPT 06:00 | PROVIDERS: Visit Provider Nurse Practitioner Family | DX: R53.1 Weakness (principal); R26.81 Unsteadiness on feet | CPT/HCPCS: 97110 ==

== ENCOUNTER 2022-10-29 06:00 | Outpatient (RCR) | payer MEDICARE, MEDICAID, SELFPAY | END 2022-11-14 23:59 | disposition home or self-care (01) | LOC: TPT 06:00 | PROVIDERS: Visit Provider Nurse Practitioner Family | DX: R53.1 Weakness (principal); R26.81 Unsteadiness on feet | CPT/HCPCS: 97110; 97164 ==

== ENCOUNTER → 2023-01-22 14:00 | Outpatient (BNVA) | payer MEDICARE, MEDICAID, SELFPAY | PROVIDERS: Visit Provider Family Medicine | DX: E78.2 Mixed hyperlipidemia (principal); F32.9 Major depressive disorder, single episode, unspecified; E78.5 Hyperlipidemia, unspecified; L40.9 Psoriasis, unspecified; I48.91 Unspecified atrial fibrillation | CPT/HCPCS: 80053; 80061; 82306; 84443 ==

== ENCOUNTER 2023-04-29 14:34 | Outpatient (CLI) | payer MEDICARE, MEDICAID, SELFPAY ==
--- NOTE | 2023-04-29 14:47 | XRR_ITS ---
PROCEDURE INFORMATION: Exam: XR Lumbosacral Spine Exam date and time: 04/29/2023 2:51 PM Age: 58 years old Clinical indication: Low back pain; Patient HX: Patient has chronic lower back pain and numbness in both feet; Additional info: M54.50 - low back pain, unspecified TECHNIQUE: Imaging protocol: Radiologic exam of the lumbosacral spine. Views: 2 or 3 views. COMPARISON: CR XR lumbar spine 2-3V* [id number] 02/08/2021 10:02 PM FINDINGS: Bones/joints: No acute fracture. Mild levoscoliosis of the lumbar spine. Moderate multilevel degenerative disc disease with disc space narrowing and endplate osteophyte formation. Mild facet arthropathy in the lower lumbar spine. Chronic appearing anterior wedging of the T12 vertebral body. Soft tissues: Unremarkable. XR/XR lumbar spine 2-3V* [id number] IMPRESSION: No acute findings. Degenerative changes of the lumbar spine as described in the body of the report.
== END 2023-04-29 14:35 | disposition home or self-care (01) ==
LOC: RAD 14:37
PROVIDERS: PCP Family Medicine; Visit Provider Family Medicine
DX: M51.36 Other intervertebral disc degeneration, lumbar region (principal); M47.816 Spondylosis without myelopathy or radiculopathy, lumbar region; M48.54XA Collapsed vertebra, not elsewhere classified, thoracic region, initial encounter for fracture; M25.78 Osteophyte, vertebrae
CPT/HCPCS: 72100

== ENCOUNTER → 2023-07-09 17:35 | Outpatient (BNVA) | payer MEDICARE, MEDICAID, SELFPAY | PROVIDERS: PCP Family Medicine; Visit Provider Family Medicine | DX: Z12.5 Encounter for screening for malignant neoplasm of prostate (principal) | CPT/HCPCS: G0103 ==

== ENCOUNTER 2023-09-11 07:36 | Day surgery (SDC) | payer MEDICARE, MEDICAID, SELFPAY ==
[2023-09-11 07:58] VITALS: BP 133/78; PULSE 100; RESP 18; TEMP 36.3; O2SAT 98; BMI 25.7
--- NOTE | 2023-09-11 07:59 | W.PM.OPSFHP ---
Same Day Surgery H&P Indication for Procedure/HPI DATE OF PROCEDURE: September 11, 2023 CHIEF COMPLAINT/INDICATIONFOR SURGICAL PROCEDURE: need for screening colonoscopy PREOP DIAGNOSIS: need for screening colonoscopy PLANNED PROCEDURE: Operation Date: 09/11/23 08:40 Proposed Procedures p Colonoscopy G0121,Z12.11(Not Applicable) - Brandon Davalos MD Medications/Allergies* Home Medications Medication Instructions Recorded Confirmed Type amlodipine 5 mg tablet 5 mg PO DAILY 09/09/23 09/11/23 History apixaban 5 mg tablet (Eliquis) 5 mg PO BID 09/09/23 09/09/23 History bupropion HCl 150 mg 24 hr tablet, 150 mg PO DAILY 09/09/23 09/11/23 History extended release ergocalciferol (vitamin D2) 1,250 1,250 mcg PO .WEEKLY 09/09/23 09/11/23 History mcg (50,000 unit) capsule folic acid 1 mg tablet 1 mg PO DAILY 09/09/23 09/11/23 History gabapentin 100 mg capsule 100 mg PO DAILY 09/09/23 09/11/23 History lisinopril 2.5 mg tablet 2.5 mg PO DAILY 09/09/23 09/11/23 History omeprazole 20 mg capsule,delayed 20 mg PO DAILY 09/09/23 09/11/23 History release spironolactone 25 mg tablet 25 mg PO DAILY 09/09/23 09/11/23 History thiamine HCl (vitamin B1) 100 mg 100 mg PO DAILY 09/09/23 09/11/23 History tablet (Vitamin B-1) Allergies/Adverse Reactions Allergy/AdvReac Type Severity Reaction Status Date / Time No Known Allergies Allergy Verified 07/30/23 15:02 Pertinent History/Comorbid Conditions* Medical History (Updated 07/09/23 @ 16:51 by Micaela Cordero MD) Congestive heart failure Atrial fibrillation GERD (gastroesophageal reflux disease) Hypertension Anxiety Family History (Updated 11/07/19 @ 14:04 by Hilda Pak LPN, RT) Cancer Father Social History Smoking and tobacco/nicotine status: former use of tobacco/nicotine Pertinent Exam Findings alert, oriented x 3, clear to auscultation bilaterally and regular rate & rhythm Recommendations Surgery/Procedure today Coding Level of Care Code Acute Code for Chg Fwd
[2023-09-11] MEDS: sodium chloride 0.9% 1,000 ML 30 ML IV (08:10)
--- NOTE | 2023-09-11 08:39 | ANES.PREANE2 ---
Pre-Anesthetic Assessment Height/Weight: Height 1.88 m Weight 90.718 kg Temp Pulse Resp BP Pulse Ox O2 Del Method 97.3 F L 100 18 133/78 98 Room Air 09/11/23 07:58 09/11/23 07:58 09/11/23 07:58 09/11/23 07:58 09/11/23 07:58 09/11/23 07:58 Preop Diagnosis: need for screening colonoscopy Operation Date: 09/11/23 08:40 Proposed Procedures p Colonoscopy G0121,Z12.11(Not Applicable) - Brandon Davalos MD Familial anesthetic complications: None Was Beta Gretta taken within 24 hours: N/A Was Clonidine taken within 24 hours: N/A Last intake: Intake Last Liquid Date 09/10/23 Last Liquid Time 19:00 Last Solid Date 09/09/23 Last Solid Time 19:00 Social No alcohol and No tobacco Exam alert, oriented x 3, clear to auscultation bilaterally and regular rate & rhythm Airway Mallampati: Class III Dentition: caps CV/HEM Atrial Fibrillation, Congestive Heart Failure (EF 28% - able to achieve 4 METs without cardiac symptoms, but he is using a cane and walker) and Hypertension patient informed of increased risk of cardiac complications in setting of anesthesia w/ low EF, wishes to proceed Anesthetic Plan ASA status: 4 Anesthesia: MAC Risk of > 500 ml blood loss (7ml/kg in children): No Medications/Allergies Home Medications Medication Instructions Recorded Confirmed Last Taken Type docusate sodium 100 mg capsule 100 mg PO DAILY #4 caps 08/06/23 09/11/23 09/10/23 Rx (Dulcolax Stool Softener (docusate)) polyethylene glycol 3350 17 17 g PO DAILY #238 grams 08/06/23 09/11/23 09/10/23 Rx gram/dose oral powder (Miralax) amlodipine 5 mg tablet 5 mg PO DAILY 09/09/23 09/11/23 09/10/23 History apixaban 5 mg tablet (Eliquis) 5 mg PO BID 09/09/23 09/09/23 09/09/23 History bupropion HCl 150 mg 24 hr tablet, 150 mg PO DAILY 09/09/23 09/11/23 09/10/23 History extended release ergocalciferol (vitamin D2) 1,250 1,250 mcg PO .WEEKLY 09/09/23 09/11/23 09/10/23 History mcg (50,000 unit) capsule folic acid 1 mg tablet 1 mg PO DAILY 09/09/23 09/11/23 09/10/23 History gabapentin 100 mg capsule 100 mg PO DAILY 09/09/23 09/11/23 09/10/23 History lisinopril 2.5 mg tablet 2.5 mg PO DAILY 09/09/23 09/11/23 09/10/23 History omeprazole 20 mg capsule,delayed 20 mg PO DAILY 09/09/23 09/11/23 09/10/23 History release spironolactone 25 mg tablet 25 mg PO DAILY 09/09/23 09/11/23 09/10/23 History thiamine HCl (vitamin B1) 100 mg 100 mg PO DAILY 09/09/23 09/11/23 09/10/23 History tablet (Vitamin B-1) carvedilol 25 mg tablet 25 mg PO BID #60 tabs 09/10/23 09/11/23 09/10/23 Rx Allergies Allergy/AdvReac Type Severity Reaction Status Date / Time No Known Allergies Allergy Verified 07/30/23 15:02 Current Medications Generic Name Dose Route Start Last Admin Trade Name Freq PRN Reason Stop Dose Admin Sodium Chloride 1,000 mls @ 30 mls/hr 09/11/23 08:00 09/11/23 08:10 Sodium Chloride 0.9% IV 30 mls/hr .Q24H NAHID Administration PFSH Anesthesia Medical History Anxiety Atrial fibrillation Congestive heart failure GERD (gastroesophageal reflux disease) Hypertension Family History Father Cancer Social History Smoking and tobacco/nicotine status: former use of tobacco/nicotine Data Anesthesia Cardiac Studies: Echocardiogram 04/10/22
[2023-09-11 09:27] VITALS: BP 122/96; PULSE 116; RESP 18; TEMP 36.1; O2SAT 95
[2023-09-11 09:34] VITALS: BP 129/95; PULSE 95; RESP 16; O2SAT 97
--- NOTE | 2023-09-11 14:46 | ANE.PACU2 ---
Inpatient post-anesthesia follow up: Airway intact: Yes Vital signs: Temperature 97.0 F Pulse Rate 95 Respiratory Rate 16 Blood Pressure 129/95 Pulse Oximetry 97 Oxygen Delivery Me thod Room Air Oxygen Flow Rate Fraction of Inspir ed Oxygen Hydration adequate: Yes Nausea and vomiting: No Pain level: 1 Mental status: Baseline
== END 2023-09-11 09:51 | disposition home or self-care (01) ==
PROVIDERS: PCP Family Medicine; Visit Provider Surgery
PROC: 0DJD8ZZ Inspection of Lower Intestinal Tract, Via Natural or Artificial Opening Endoscopic (ICD-10-PCS; CPT 45378; principal; 2023-09-11 08:40)
DX: Z12.11 Encounter for screening for malignant neoplasm of colon (principal); I48.91 Unspecified atrial fibrillation; I11.0 Hypertensive heart disease with heart failure; I50.9 Heart failure, unspecified; K21.9 Gastro-esophageal reflux disease without esophagitis; F41.9 Anxiety disorder, unspecified; Z87.891 Personal history of nicotine dependence; K57.30 Diverticulosis of large intestine without perforation or abscess without bleeding
CPT/HCPCS: 45378; 76937; G0121; J2371; J2704; J7030

== ENCOUNTER → 2024-04-25 15:15 | Outpatient (BNVA) | payer MEDICARE, MEDICAID, SELFPAY | PROVIDERS: PCP Family Medicine; Visit Provider Family Medicine | DX: E78.2 Mixed hyperlipidemia (principal); F32.9 Major depressive disorder, single episode, unspecified; I10 Essential (primary) hypertension; I48.11 Longstanding persistent atrial fibrillation | CPT/HCPCS: 80053; 80061; 84443; 85025 ==

== ENCOUNTER → 2024-08-11 13:38 | Outpatient (BNVA) | payer MEDICARE, MEDICAID, SELFPAY | PROVIDERS: Visit Provider Podiatrist Foot & Ankle Surgery | DX: S99.921A Unspecified injury of right foot, initial encounter (principal); L02.611 Cutaneous abscess of right foot; L03.115 Cellulitis of right lower limb; X58.XXXA Exposure to other specified factors, initial encounter | CPT/HCPCS: 73630 ==

== ENCOUNTER 2024-08-11 14:30 | Emergency (ER) | payer MEDICARE, MEDICAID, SELFPAY ==
[2024-08-11 14:35] VITALS: BP 96/61; PULSE 93; RESP 18; TEMP 36.4; O2SAT 94; BMI 25.0
== END 2024-08-11 15:30 | disposition left against medical advice (07) ==
PROVIDERS: Emergency Provider Family Medicine
DX: Z53.21 Procedure and treatment not carried out due to patient leaving prior to being seen by health care provider (principal); R68.83 Chills (without fever); R11.0 Nausea

== ENCOUNTER → 2024-08-15 06:30 | Outpatient (BNVA) | payer MEDICARE, MEDICAID, SELFPAY | PROVIDERS: Visit Provider Podiatrist Foot & Ankle Surgery | DX: L02.611 Cutaneous abscess of right foot; S90.31XA Contusion of right foot, initial encounter; L03.115 Cellulitis of right lower limb; X58.XXXA Exposure to other specified factors, initial encounter | CPT/HCPCS: 99213 ==

== ENCOUNTER → 2024-08-17 06:39 | Outpatient (BNVA) | payer MEDICARE, MEDICAID, SELFPAY | PROVIDERS: Visit Provider Podiatrist Foot & Ankle Surgery | DX: L02.611 Cutaneous abscess of right foot; S90.31XA Contusion of right foot, initial encounter; X58.XXXA Exposure to other specified factors, initial encounter; L03.115 Cellulitis of right lower limb | CPT/HCPCS: 99213 ==

== ENCOUNTER → 2024-08-24 06:45 | Outpatient (BNVA) | payer MEDICARE, MEDICAID, SELFPAY | PROVIDERS: Visit Provider Podiatrist Foot & Ankle Surgery | DX: L02.611 Cutaneous abscess of right foot; S99.921A Unspecified injury of right foot, initial encounter; L03.115 Cellulitis of right lower limb; X58.XXXA Exposure to other specified factors, initial encounter | CPT/HCPCS: 99213 ==

== ENCOUNTER → 2024-09-15 11:25 | Outpatient (BNVA) | payer MEDICARE, MEDICAID, SELFPAY | PROVIDERS: PCP Family Medicine; Visit Provider Family Medicine | DX: I50.20 Unspecified systolic (congestive) heart failure (principal); I10 Essential (primary) hypertension; I48.11 Longstanding persistent atrial fibrillation; E78.2 Mixed hyperlipidemia; R17 Unspecified jaundice; R20.8 Other disturbances of skin sensation; L40.9 Psoriasis, unspecified | CPT/HCPCS: 80053; 80061; 82306; 82607; 83880; 84443; 85025 ==

== ENCOUNTER 2024-10-31 07:56 | Outpatient (CLI) | payer MEDICARE, MEDICAID, SELFPAY ==
--- NOTE | 2024-10-31 08:08 | USCV_ITS ---
SebastienDerrek(naima) Age: 59 Gender: M : 1965 Exam Date: 10/31/2024 08:25 Ordering Phys: Hui Piper MD Technologist: CT [place] [facility] [place]: chf, BP: 112 / 62 HR: 96 Rhythm: Atrial fibrillation Technical Quality: Adequate MEASUREMENTS (Male / Female) Normal Values 2D ECHO LVOT Diameter 2.1 cm LV Ejection Fraction MOD 4C 58.2 % LV Ejection Fraction MOD 2C 51.2 % LV Ejection Fraction 2C AL 54.3 % LA Diameter 5.8 cm RA Systolic Volume 4C AL 79.8 ml RA Systolic Volume 4C MOD 77.5 ml LA Sys Volume AL 100.4 cm cubed LA Sys Volume Index AL 46.4 cm cubed/m squared Aorta at Sinotubular Diameter 2.3 cm M-MODE LA Ao Ratio MM 2.1 AV Cusp Separation MM 2.3 cm DOPPLER AV Peak Velocity 99.0 cm/s LVOT Peak Velocity 75.0 cm/s AV Area Cont Eq vti 2.8 cm squared AV Area Cont Eq pk 2.7 cm squared MV Peak Velocity 127.0 cm/s MV Area PHT 3.9 cm squared Mitral E to A Ratio 311.0 TR Peak Velocity 263.5 cm/s TR Peak Gradient 27.8 mmHg TR Mean Velocity 194.0 cm/s TR Mean Gradient 16.6 mmHg TR Velocity Time Integral 67.1 cm TV Peak E Velocity 75.0 cm/s PV Peak Velocity 62.0 cm/s FINDINGS Left Ventricle Left ventricle is normal in size. LV systolic function is normal with EF of 50-55%. No regional wall motion abnormalities are seen. Right Ventricle Normal in size and function Right Atrium Dilated Left Atrium Dilated Mitral Valve Structurally normal mitral valve. Mild mitral regurgitation. Aortic Valve Structurally normal aortic valve. Moderate aortic regurgitation. Tricuspid Valve Mild tricuspid regurgitation. Pulmonary artery systolic pressure is normal. Pulmonic Valve Trace pulmonic regurgitation. Pericardium Small pericardial effusion. Aorta Normal in size IVC Not well visualized CONCLUSIONS LV systolic function is normal with EF of 50-55%. Biatrial dilation. Mild mitral regurgitation. Moderate aortic regurgitation. Mild tricuspid regurgitation. Trace pulmonic regurgitation. Small pericardial effusion. Compared to prior echocardiogram from 2021, LV systolic function has improved significantly. Forrest Interiano MD (Electronically Signed) Final Date: 02 November 2024 13:08 S
== END 2024-10-31 07:57 | disposition home or self-care (01) ==
LOC: RAD 07:59
PROVIDERS: PCP Family Medicine; Visit Provider Family Medicine
DX: I50.20 Unspecified systolic (congestive) heart failure (principal); I34.81 Nonrheumatic mitral (valve) annulus calcification; I34.0 Nonrheumatic mitral (valve) insufficiency; I35.1 Nonrheumatic aortic (valve) insufficiency; I07.1 Rheumatic tricuspid insufficiency; I31.39 Other pericardial effusion (noninflammatory)
CPT/HCPCS: 93306

== ENCOUNTER → 2024-12-01 13:00 | Outpatient (BNVA) | payer MEDICARE, MEDICAID, SELFPAY | PROVIDERS: PCP Family Medicine; Visit Provider Family Medicine | DX: M25.562 Pain in left knee (principal) | CPT/HCPCS: 80048; 84550 ==

== ENCOUNTER → 2024-12-06 14:55 | Outpatient (BNVA) | payer MEDICARE, MEDICAID, SELFPAY | PROVIDERS: PCP Family Medicine; Visit Provider Family Medicine | DX: M25.562 Pain in left knee (principal) | CPT/HCPCS: 73562 ==

== ENCOUNTER 2024-12-27 06:00 | Outpatient (RCR) | payer MEDICARE, MEDICAID, SELFPAY | END 2025-01-25 23:59 | disposition home or self-care (01) | LOC: TPT 06:00 | PROVIDERS: Visit Provider Nurse Practitioner Family | DX: M25.562 Pain in left knee (principal) | CPT/HCPCS: 97110; 97161 ==

== ENCOUNTER 2025-01-26 05:00 | Outpatient (RCR) | payer MEDICARE, MEDICAID, SELFPAY | END 2025-02-25 23:59 | disposition home or self-care (01) | LOC: TPT 05:00 | PROVIDERS: Visit Provider Nurse Practitioner Family | DX: M25.562 Pain in left knee (principal) | CPT/HCPCS: 97110 ==

== ENCOUNTER 2025-02-26 05:00 | Outpatient (RCR) | payer MEDICARE, MEDICAID, SELFPAY | END 2025-03-27 23:59 | disposition home or self-care (01) | LOC: TPT 05:00 | PROVIDERS: Visit Provider Nurse Practitioner Family | DX: M25.562 Pain in left knee (principal) | CPT/HCPCS: 97110 ==

== ENCOUNTER → 2025-03-16 10:55 | Outpatient (BNVA) | payer MEDICARE, MEDICAID, SELFPAY | PROVIDERS: PCP Family Medicine; Visit Provider Family Medicine | DX: I10 Essential (primary) hypertension (principal); E78.2 Mixed hyperlipidemia; R17 Unspecified jaundice | CPT/HCPCS: 80053; 80061; 85025 ==

== ENCOUNTER 2025-03-28 05:00 | Outpatient (RCR) | payer MEDICARE, MEDICAID, SELFPAY | END 2025-04-27 23:59 | disposition home or self-care (01) | LOC: TPT 05:00 | PROVIDERS: PCP Family Medicine; Visit Provider Nurse Practitioner Family | DX: M25.562 Pain in left knee (principal) | CPT/HCPCS: 97110 ==

== ENCOUNTER 2025-04-28 05:00 | Outpatient (RCR) | payer MEDICARE, MEDICAID, SELFPAY | END 2025-05-28 23:59 | disposition home or self-care (01) | LOC: TPT 05:00 | PROVIDERS: PCP Family Medicine; Visit Provider Nurse Practitioner Family | DX: M25.562 Pain in left knee (principal) | CPT/HCPCS: 97110 ==

== ENCOUNTER 2025-05-29 05:00 | Outpatient (RCR) | payer MEDICAID, OTHER, SELFPAY | END 2025-06-19 09:23 | disposition home or self-care (01) | LOC: TPT 05:00 | PROVIDERS: PCP Family Medicine; Visit Provider Nurse Practitioner Family | DX: M25.562 Pain in left knee (principal) | CPT/HCPCS: 97110 ==

== ENCOUNTER → 2025-06-30 12:14 | Outpatient (BNVA) | payer OTHER, MEDICAID, SELFPAY | PROVIDERS: PCP Family Medicine; Visit Provider Nurse Practitioner Family | DX: R39.9 Unspecified symptoms and signs involving the genitourinary system (principal) | CPT/HCPCS: 81000; 87086 ==

== ENCOUNTER → 2025-09-14 10:24 | Outpatient (BNVA) | payer OTHER, MEDICAID, SELFPAY | PROVIDERS: PCP Family Medicine; Visit Provider Family Medicine | DX: I10 Essential (primary) hypertension (principal); I48.11 Longstanding persistent atrial fibrillation; E78.2 Mixed hyperlipidemia; Z79.01 Long term (current) use of anticoagulants | CPT/HCPCS: 80053; 80061; 82607; 83735; 85025 ==